=== PATIENT | female | born 1985 | race Caucasian/White ===

== ENCOUNTER 2016-12-18 16:30 | Inpatient (IN) | payer BC, OTHER ==
--- NOTE | 2016-12-18 16:36 | EDM.PDOC ---
[id number]: Genitourinary Problem Stated Complaint: kidnee infection [id number] Time Seen by Provider: 12/18/16 18:45 - Related Data Allergies/ADRs: Allergies Allergy/AdvReac Type Severity Reaction Status Date / Time latex Allergy Rash Verified 12/18/16 16:51 Home Meds: Home Meds Insulin Aspart [NovoLOG] 35 - 45 units IMPLANT ASDIRECTED 10/29/16 [History] Levothyroxine [Synthroid] 1 tab PO DAILY 12/18/16 [History] Course - Vital Signs Last Recorded V/S: Last Vital Signs Temp 36.8 C 12/18/16 21:04 Pulse 98 12/18/16 21:04 Resp 16 12/18/16 21:04 BP 116/67 12/18/16 21:04 Pulse Ox 99 12/18/16 21:04 - Orders/Labs/Meds Orders: Active Orders 24 hr Category Date Time Status CULTURE URINE [RM] Stat Lab 12/18/16 16:48 Received Sodium Chloride 0.9% [Saline Flush] Med 12/18/16 18:34 Active 10 ml FLUSH ASDIRECTED PRN Peripheral IV Insertion Adult [OM.PC] Stat Oth 12/18/16 18:33 Ordered Medication Orders Acetaminophen (Tylenol) 650 mg PO Q4H PRN PRN Reason: Pain (mild 1-3 )/fever Docusate Sodium (Colace) 100 mg PO DAILY PRN PRN Reason: Constipation Last Admin: 12/18/16 22:34 Dose: 100 mg Ceftriaxone Sodium 1 gm/ (Sodium Chloride) 50 mls @ 100 mls/hr IV Q24H [facility] Last Admin: 12/18/16 22:34 Dose: 100 mls/hr Sodium Chloride (Normal Saline) 1,000 mls @ 75 mls/hr IV ASDIRECTED [facility] Last Admin: 12/19/16 04:34 Dose: 75 mls/hr Insulin Aspart (Novolog) 0 unit SUBCUT Q4H SAMINA PRN Reason: Protocol Last Admin: 12/19/16 06:24 Dose: 6 units Admin: 12/19/16 02:28 Dose: 6 units Admin: 12/18/16 22:44 Dose: 12 units Sodium Chloride (Saline Flush) 10 ml FLUSH ASDIRECTED PRN PRN Reason: Keep Vein Open Labs: Laboratory Tests 12/18/16 12/18/16 12/18/16 Range/Units 16:48 16:48 18:50 WBC 11.9 H (5.0-10.0) 10^3/uL RBC 4.18 L (4.2-5.4) 10^6/uL Hgb 13.0 (12.0-16.0) g/dL Hct 37.4 (37.0-47.0) % MCV 89.5 (80-100) fL MCH 31.1 (27.0-34.0) pg MCHC 34.8 (33.0-35.0) g/dL Plt Count 282 (150-450) 10^3/uL Neut % (Auto) 81.2 H (42.2-75.2) % Lymph % (Auto) 9.7 L (20.5-50.1) % Swain % (Auto) 8.8 H (2-8) % Eos % (Auto) 0.1 L (1.0-3.0) % Baso % (Auto) 0.2 (0.0-1.0) % Sodium (135-145) mmol/L Potassium (3.6-5.0) mmol/L Chloride (101-111) mmol/L Carbon Dioxide (21.0-31.0) mmol/L Anion Gap BUN (7-18) mg/dL Creatinine (0.6-1.3) mg/dL Est Cr Clr Drug Dosing mL/min Estimated GFR (MDRD) BUN/Creatinine Ratio Glucose (74-105) mg/dL Calcium (8.4-10.2) mg/dl Total Bilirubin (0.2-1.0) mg/dL AST (10-42) IU/L ALT (10-60) IU/L Alkaline Phosphatase (42-121) IU/L Total Protein (6.7-8.2) g/dl Albumin (3.2-5.5) g/dl Globulin Albumin/Globulin Ratio Amylase (28-100) U/L Lipase (22-51) U/L Urine Color Yellow (YELLOW) Urine Appearance Clear (CLEAR) Urine pH 5.0 (5.0-9.0) Ur Specific [place] 1.025 (1.005-1.030) Urine Protein 100 H (NEGATIVE) Urine Glucose (UA) 500 H (NEGATIVE) Urine Ketones 80 H (NEGATIVE) Urine Occult Blood Large H (NEGATIVE) Urine Nitrite Negative (NEGATIVE) Urine Bilirubin Small H (NEGATIVE) Urine Urobilinogen 0.2 (0.2-1.0) mg/dL Ur Leukocyte Esterase Negative (NEGATIVE) Urine RBC 5-10 H /HPF Urine WBC 75-100 H (0-5/HPF) /HPF Ur Epithelial Cells Few /HPF Urine Bacteria Few (0-FEW/HPF) /HPF Urine HCG, Qual Negative Ketones 12/18/16 Range/Units 18:50 WBC (5.0-10.0) 10^3/uL RBC (4.2-5.4) 10^6/uL Hgb (12.0-16.0) g/dL Hct (37.0-47.0) % MCV (80-100) fL MCH (27.0-34.0) pg MCHC (33.0-35.0) g/dL Plt Count (150-450) 10^3/uL Neut % (Auto) (42.2-75.2) % Lymph % (Auto) (20.5-50.1) % Swain % (Auto) (2-8) % Eos % (Auto) (1.0-3.0) % Baso % (Auto) (0.0-1.0) % Sodium 127 L (135-145) mmol/L Potassium 4.5 (3.6-5.0) mmol/L Chloride 98 L (101-111) mmol/L Carbon Dioxide 10.0 L (21.0-31.0) mmol/L Anion Gap 23.5 BUN 15 (7-18) mg/dL Creatinine 0.8 (0.6-1.3) mg/dL Est Cr Clr Drug Dosing 92.53 mL/min Estimated GFR (MDRD) > 60 BUN/Creatinine Ratio 18.75 Glucose 366 H (74-105) mg/dL Calcium 8.8 (8.4-10.2) mg/dl Total Bilirubin 1.0 (0.2-1.0) mg/dL AST 15 (10-42) IU/L ALT 17 (10-60) IU/L Alkaline Phosphatase 103 (42-121) IU/L Total Protein 8.8 H (6.7-8.2) g/dl Albumin 4.0 (3.2-5.5) g/dl Globulin 4.8 Albumin/Globulin Ratio 0.83 Amylase 16 L (28-100) U/L Lipase 13 L (22-51) U/L Urine Color (YELLOW) Urine Appearance (CLEAR) Urine pH (5.0-9.0) Ur Specific [place] (1.005-1.030) Urine Protein (NEGATIVE) Urine Glucose (UA) (NEGATIVE) Urine Ketones (NEGATIVE) Urine Occult Blood (NEGATIVE) Urine Nitrite (NEGATIVE) Urine Bilirubin (NEGATIVE) Urine Urobilinogen (0.2-1.0) mg/dL Ur Leukocyte Esterase (NEGATIVE) Urine RBC /HPF Urine WBC (0-5/HPF) /HPF Ur Epithelial Cells /HPF Urine Bacteria (0-FEW/HPF) /HPF Urine HCG, Qual Ketones Positive Meds: Medications Generic Name Dose Route Start Last Admin Trade Name Freq PRN Reason Stop Dose Admin Acetaminophen 650 mg 12/18/16 22:11 Tylenol PO Q4H PRN Pain (mild 1-3 )/fever Docusate Sodium 100 mg 12/18/16 22:11 12/18/16 22:34 Colace PO 100 mg DAILY PRN Administration Constipation Ceftriaxone Sodium 1 gm/ 50 mls @ 100 mls/hr 12/18/16 22:30 12/18/16 22:34 Sodium Chloride IV 100 mls/hr Q24H SAMINA Administration Sodium Chloride 1,000 mls @ 75 mls/hr 12/19/16 04:30 12/19/16 04:34 Normal Saline IV 75 mls/hr ASDIRECTED SAMINA Administration Insulin Aspart 0 unit 12/18/16 22:30 12/19/16 06:24 Novolog SUBCUT 6 units Q4H SAMINA Administration Protocol Sodium Chloride 10 ml 12/18/16 18:34 Saline Flush FLUSH ASDIRECTED PRN Keep Vein Open Discontinued Medications Generic Name Dose Route Start Last Admin Trade Name Freq PRN Reason Stop Dose Admin Levofloxacin/Dextrose 500 mg/ 100 mls @ 100 mls/hr 12/18/16 18:35 12/18/16 19 :10 Premix IV 12/18/16 19:34 100 mls/hr ONETIME ONE Administration Sodium Chloride 1,000 mls @ 999 mls/hr 12/18/16 18:35 12/18/16 19:10 Normal Saline IV 12/18/16 19:35 999 mls/hr .BOLUS ONE Administration Ondansetron HCl 4 mg 12/18/16 18:36 12/18/16 19:10 Zofran IV 12/18/16 18:37 4 mg ONETIME ONE Administration Departure - Departure Time of Disposition: 20:29 Disposition: Admitted As Inpatient 67 Condition: fair Clinical Impression: DKA (diabetic ketoacidoses) Qualifiers: Diabetes mellitus type: type 1 Diabetes mellitus complication detail: without coma Qualified Code(s): E10.10 - Type 1 diabetes mellitus with ketoacidosis without coma - My Orders Last 24 Hours: My Active Orders 12/18/16 16:48 CULTURE URINE [RM] Stat 12/18/16 18:33 Peripheral IV Insertion Adult [OM.PC] Stat 12/18/16 18:34 Sodium Chloride 0.9% [Saline Flush] 10 ml FLUSH ASDIRECTED PRN - Assessment/Plan Last 24 Hours: My Active Orders 12/18/16 16:48 CULTURE URINE [RM] Stat 12/18/16 18:33 Peripheral IV Insertion Adult [OM.PC] Stat 12/18/16 18:34 Sodium Chloride 0.9% [Saline Flush] 10 ml FLUSH ASDIRECTED PRN <Brodie Reyes - Last Filed: 12/19/16 07:05> ED HPI RENAL/ - General Source of Information: Reports: Patient, RN, RN notes reviewed History Limitations: Reports: No limitations - History of Present Illness INITIAL COMMENTS - FREE TEXT/NARRATIVE: One week of mild dysuria symptoms that were intermittent. Onset of left flank pain with nausea with fever and chills sensation yesterday. Denies vomiting, abdominal pain or diarrhea. Patient is type 1 diabetic with insulin pump and admits that she has not been checking her sugars for the past several days. 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 History: Reports: None Neurological History: Reports: None Psychiatric History: Reports: None Endocrine/Metabolic History: Reports: Diabetes, type I Hematologic History: Reports: None Immunologic History: Reports: None Oncologic (Cancer) History: Reports: None Dermatologic History: Reports: None - Infectious Disease History Infectious Disease History: Reports: Chicken pox, Other (see below) Other Infectious Disease History: fifth disease Social & Family History - Family History Family Medical History: Noncontributory - Tobacco Use Smoking Status *Q: Never Smoker Second Hand Smoke Exposure: No - Caffeine Use Caffeine Use: Reports: Coffee, Soda - Alcohol Use Days Per Week of Alcohol Use: 0 - Recreational Drug Use Recreational Drug Use: No ED ROS GENERAL - Review of Systems Review Of Systems: ROS reveals no pertinent complaints other than HPI. ED EXAM, RENAL/ - Physical Exam Exam: See Below Exam Limited By: No limitations General Appearance: alert, WD/WN, no apparent distress Eye Exam: bilateral eye: normal inspection Nose: normal inspection, normal mucosa, no blood Throat/Mouth: Normal inspection, Normal oropharynx, Normal voice, No airway compromise, Other (dry oral membranes) Head: atraumatic, normocephalic Neck: normal inspection, supple, non-tender, full range of motion Respiratory/Chest: no respiratory distress, lungs clear, normal breath sounds, no accessory muscle use, chest non-tender Cardiovascular: regular rate, rhythm, no edema, tachycardia GI/Abdominal: normal bowel sounds, soft, no organomegaly, no distention, no abnormal bruit, no mass, tender (mild suprapubic tenderness). No: guarding, rigid, rebound (Female) Exam: Deferred Rectal (Female) Exam: Deferred Back Exam: full range of motion, CVA tenderness (L). No: CVA tenderness (R) Extremities: normal inspection Neurological: alert, oriented, CN II-XII intact, normal cognition, normal gait, no motor/sensory deficits Psychiatric: normal affect Skin Exam: Warm, Dry, Intact, Normal color, No rash Course - Vital Signs Last Recorded V/S: Last Vital Signs Temp 36.8 C 12/18/16 21:04 Pulse 98 12/18/16 21:04 Resp 16 12/18/16 21:04 BP 116/67 12/18/16 21:04 Pulse Ox 99 12/18/16 21:04 - Orders/Labs/Meds Labs: Laboratory Tests 12/18/16 12/18/16 12/18/16 Range/Units 16:48 16:48 18:50 WBC 11.9 H (5.0-10.0) 10^3/uL RBC 4.18 L (4.2-5.4) 10^6/uL Hgb 13.0 (12.0-16.0) g/dL Hct 37.4 (37.0-47.0) % MCV 89.5 (80-100) fL MCH 31.1 (27.0-34.0) pg MCHC 34.8 (33.0-35.0) g/dL Plt Count 282 (150-450) 10^3/uL Neut % (Auto) 81.2 H (42.2-75.2) % Lymph % (Auto) 9.7 L (20.5-50.1) % Swain % (Auto) 8.8 H (2-8) % Eos % (Auto) 0.1 L (1.0-3.0) % Baso % (Auto) 0.2 (0.0-1.0) % Sodium (135-145) mmol/L Potassium (3.6-5.0) mmol/L Chloride (101-111) mmol/L Carbon Dioxide (21.0-31.0) mmol/L Anion Gap BUN (7-18) mg/dL Creatinine (0.6-1.3) mg/dL Est Cr Clr Drug Dosing mL/min Estimated GFR (MDRD) BUN/Creatinine Ratio Glucose (74-105) mg/dL Calcium (8.4-10.2) mg/dl Total Bilirubin (0.2-1.0) mg/dL AST (10-42) IU/L ALT (10-60) IU/L Alkaline Phosphatase (42-121) IU/L Total Protein (6.7-8.2) g/dl Albumin (3.2-5.5) g/dl Globulin Albumin/Globulin Ratio Amylase (28-100) U/L Lipase (22-51) U/L Urine Color Yellow (YELLOW) Urine Appearance Clear (CLEAR) Urine pH 5.0 (5.0-9.0) Ur Specific [place] 1.025 (1.005-1.030) Urine Protein 100 H (NEGATIVE) Urine Glucose (UA) 500 H (NEGATIVE) Urine Ketones 80 H (NEGATIVE) Urine Occult Blood Large H (NEGATIVE) Urine Nitrite Negative (NEGATIVE) Urine Bilirubin Small H (NEGATIVE) Urine Urobilinogen 0.2 (0.2-1.0) mg/dL Ur Leukocyte Esterase Negative (NEGATIVE) Urine RBC 5-10 H /HPF Urine WBC 75-100 H (0-5/HPF) /HPF Ur Epithelial Cells Few /HPF Urine Bacteria Few (0-FEW/HPF) /HPF Urine HCG, Qual Negative Ketones 12/18/16 Range/Units 18:50 WBC (5.0-10.0) 10^3/uL RBC (4.2-5.4) 10^6/uL Hgb (12.0-16.0) g/dL Hct (37.0-47.0) % MCV (80-100) fL MCH (27.0-34.0) pg MCHC (33.0-35.0) g/dL Plt Count (150-450) 10^3/uL Neut % (Auto) (42.2-75.2) % Lymph % (Auto) (20.5-50.1) % Swain % (Auto) (2-8) % Eos % (Auto) (1.0-3.0) % Baso % (Auto) (0.0-1.0) % Sodium 127 L (135-145) mmol/L Potassium 4.5 (3.6-5.0) mmol/L Chloride 98 L (101-111) mmol/L Carbon Dioxide 10.0 L (21.0-31.0) mmol/L Anion Gap 23.5 BUN 15 (7-18) mg/dL Creatinine 0.8 (0.6-1.3) mg/dL Est Cr Clr Drug Dosing 92.53 mL/min Estimated GFR (MDRD) > 60 BUN/Creatinine Ratio 18.75 Glucose 366 H (74-105) mg/dL Calcium 8.8 (8.4-10.2) mg/dl Total Bilirubin 1.0 (0.2-1.0) mg/dL AST 15 (10-42) IU/L ALT 17 (10-60) IU/L Alkaline Phosphatase 103 (42-121) IU/L Total Protein 8.8 H (6.7-8.2) g/dl Albumin 4.0 (3.2-5.5) g/dl Globulin 4.8 Albumin/Globulin Ratio 0.83 Amylase 16 L (28-100) U/L Lipase 13 L (22-51) U/L Urine Color (YELLOW) Urine Appearance (CLEAR) Urine pH (5.0-9.0) Ur Specific [place] (1.005-1.030) Urine Protein (NEGATIVE) Urine Glucose (UA) (NEGATIVE) Urine Ketones (NEGATIVE) Urine Occult Blood (NEGATIVE) Urine Nitrite (NEGATIVE) Urine Bilirubin (NEGATIVE) Urine Urobilinogen (0.2-1.0) mg/dL Ur Leukocyte Esterase (NEGATIVE) Urine RBC /HPF Urine WBC (0-5/HPF) /HPF Ur Epithelial Cells /HPF Urine Bacteria (0-FEW/HPF) /HPF Urine HCG, Qual Ketones Positive Meds: Medications Generic Name Dose Route Start Last Admin Trade Name [place] PRN Reason Stop Dose Admin Acetaminophen 650 mg 12/18/16 22:11 Tylenol PO Q4H PRN Pain (mild 1-3 )/fever Docusate Sodium 100 mg 12/18/16 22:11 12/18/16 22:34 Colace PO 100 mg DAILY PRN Administration Constipation Ceftriaxone Sodium 1 gm/ 50 mls @ 100 mls/hr 12/18/16 22:30 12/18/16 22:34 Sodium Chloride IV 100 mls/hr Q24H SAMINA Administration Sodium Chloride 1,000 mls @ 75 mls/hr 12/19/16 04:30 12/19/16 04:34 Normal Saline IV 75 mls/hr ASDIRECTED SAMINA Administration Insulin Aspart 0 unit 12/18/16 22:30 12/19/16 06:24 Novolog SUBCUT 6 units Q4H SAMINA Administration Protocol Sodium Chloride 10 ml 12/18/16 18:34 Saline Flush FLUSH ASDIRECTED PRN Keep Vein Open Discontinued Medications Generic Name Dose Route Start Last Admin Trade Name [place] PRN Reason Stop Dose Admin Levofloxacin/Dextrose 500 mg/ 100 mls @ 100 mls/hr 12/18/16 18:35 12/18/16 19 :10 Premix IV 12/18/16 19:34 100 mls/hr ONETIME ONE Administration Sodium Chloride 1,000 mls @ 999 mls/hr 12/18/16 18:35 12/18/16 19:10 Normal Saline IV 12/18/16 19:35 999 mls/hr .BOLUS ONE Administration Ondansetron HCl 4 mg 12/18/16 18:36 12/18/16 19:10 Zofran IV 12/18/16 18:37 4 mg ONETIME ONE Administration - Re-Assessments/Exams Free Text/Narrative Re-Assessment/Exam: 12/18/16 18:57 Care of patient transferred to Dr. Kelly at 1900 hours shift change.
[2016-12-18] MEDS ORDERED: Sodium Chloride 0.9% 10 ML Syringe FLUSH PRN (18:34)
[2016-12-18] MEDS ORDERED: Levofloxacin/Dextrose 5%-Water 500 MG in Premix Bag 1 BAG IV ONE (18:35)
[2016-12-18] MEDS ORDERED: Sodium Chloride 0.9% 1,000 ML IV ONE (18:35)
[2016-12-18] MEDS ORDERED: Ondansetron 4 MG/2 ML SDV IV ONE (18:36)
[2016-12-18 19:14] LABS: CHLORIDE,CL 98 mmol/L (101-111); SODIUM,NA 127 mmol/L (135-145)
--- NOTE | 2016-12-18 21:55 | PCM.HP ---
H&P History of Present Illness - General Date of Service: 12/18/16 Admit Problem/Dx: Diabetic Ketoacidosis, with high anion gap, elevated blood sugar Source of Information: Patient, Old records - History of Present Illness Initial Comments - Free Text/Narative: This is a 31 y/O F diagnosed with diabetes at age 18 yrs old and on insulin Pump. [facility] She presented today to ED with One week of mild dysuria symptoms that were intermittent. Onset of left flank pain with nausea with fever and chills sensation yesterday. Denies vomiting, abdominal pain or diarrhea. Patient has th insulin pump and admits that she has not been checking her sugars for the past several day Onset of Symptoms: Reports: gradual Left Middle Abdomen Pain Score (Numeric/FACES): 4 - Related Data Allergies/Adverse Reactions: Allergies Allergy/AdvReac Type Severity Reaction Status Date / Time latex Allergy Rash Verified 12/18/16 16:51 Home Medications: Home Meds Insulin Aspart [NovoLOG] 35 - 45 units IMPLANT ASDIRECTED 10/29/16 [History] Levothyroxine [Synthroid] 1 tab PO DAILY 12/18/16 [History] Past Medical History HEENT History: Reports: None Cardiovascular History: Reports: None Respiratory History: Reports: None Gastrointestinal History: Reports: None Genitourinary History: Reports: None 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 History: Reports: None Neurological History: Reports: None Psychiatric History: Reports: None Endocrine/Metabolic History: Reports: Diabetes, type I Hematologic History: Reports: None Immunologic History: Reports: None Oncologic (Cancer) History: Reports: None Dermatologic History: Reports: None - Infectious Disease History Infectious Disease History: Reports: Chicken pox, Other (see below) Other Infectious Disease History: fifth disease Social & Family History - Family History Family Medical History: Noncontributory - Tobacco Use Smoking Status *Q: Never Smoker Second Hand Smoke Exposure: No - Caffeine Use Caffeine Use: Reports: Coffee, Soda - Alcohol Use Days Per Week of Alcohol Use: 2 Number of Drinks Per Day: 1 Total Drinks Per Week: 2 Date of Last Drink: 12/11/16 Time of Last Drink: 19:30 - Recreational Drug Use Recreational Drug Use: No H&P Review of Systems - Review of Systems: Review Of Systems: See Below General: Denies: fever, chills, weakness, fatigue, decreased appetite HEENT: Denies: contact lenses, headaches, post nasal drip, sinus congestion, sore throat Pulmonary: Denies: Shortness of Breath, Wheezing, Cough, Sputum, Hemoptysis Cardiovascular: Denies: chest pain, palpitations, dyspnea on exertion Gastrointestinal: Reports: Constipation. Denies: Nausea, Vomiting Genitourinary: Denies: dysuria, burning, flank pain (left) Musculoskeletal: Denies: neck pain, leg pain, joint pain, joint swelling Skin: Denies: cyanosis, jaundice, bruising, pruritis, rash Psychiatric: Denies: confusion, anxiety Neurological: Denies: Dizziness, Headache, Weakness Hematologic/Lymphatic: Denies: anemia Immunologic: Denies: environmental allergy Exam - Exam Exam: See Below - Vital Signs Vital Signs: Last Vital Signs Temp 36.8 C 12/18/16 21:04 Pulse 98 12/18/16 21:04 Resp 16 12/18/16 21:04 BP 116/67 12/18/16 21:04 Pulse Ox 99 12/18/16 21:04 Weight: 71.486 kg - Exam Quality Assessment: DVT prophylaxis. No: supplemental oxygen, urinary catheter General: alert, oriented, cooperative HEENT: Conjunctiva clear, Mucosa moist & pink, Pupils equal Neck: supple. No: lymphadenopathy, carotid bruit, JVD, thyromegaly Lungs: Clear to auscultation, Normal respiratory effort. No: Crackles, Rhonchi , Wheezing Cardiovascular: regular rate, regular rhythm Abdomen: normal bowel sounds, soft. No: guarding, rigidity, rebound (Female) Exam: Deferred Rectal (Female) Exam: Deferred Back Exam: normal inspection, full range of motion Extremities: No: calf tenderness, edema Skin: warm, dry, intact Neurological: cranial nerves intact, reflexes equal bilateral Neuro Extensive - Mental Status: alert, oriented x3, normal mood/affect, normal cognition, memory intact Neuro Extensive - Motor, Sensory, Reflexes: CN II-XII intact, normal gait, normal reflexes Psychiatric: alert, normal affect, normal mood - Patient Data Result Diagrams: 12/18/16 18:50 12/18/16 18:50 *Q Meaningful Use (ADM) - VTE *Q VTE Criteria *Q: - Stroke *Q Stroke Criteria *Q: - AMI *Q AMI Criteria *Q: - Problem List (1) Flank pain SNOMED Code(s): 928111761 ICD Code: R10.9 - UNSPECIFIED ABDOMINAL PAIN Status: Acute Current Visit : Yes (2) DKA (diabetic ketoacidoses) SNOMED Code(s): 605487844, 717459782 ICD Code: E13.10 - OTH DIABETES MELLITUS WITH KETOACIDOSIS WITHOUT COMA Status: Acute Current Visit: Yes Qualifiers: Diabetes mellitus type: type 1 Diabetes mellitus complication detail: without coma Qualified Code(s): E10.10 - Type 1 diabetes mellitus with ketoacidosis without coma (3) Nausea & vomiting SNOMED Code(s): 11566741 ICD Code: R11.2 - NAUSEA WITH VOMITING, UNSPECIFIED Status: Acute Current Visit: No Qualifiers: Vomiting type: unspecified Vomiting Intractability: unspecified Qualified Code(s): R11.2 - Nausea with vomiting, unspecified Problem List Initiated/Reviewed/Updated: Yes Orders Last 24hrs: Medication Orders Sodium Chloride (Saline Flush) 10 ml FLUSH ASDIRECTED PRN PRN Reason: Keep Vein Open Assessment/Plan Comment:: his is a 31 y/O F diagnosed with diabetes at age 18 yrs old and on insulin Pump. she follows with Dr. Harris at [facility], [place] . She presented today to ED with One week of mild dysuria symptoms that were intermittent. Onset of left flank pain with nausea with fever and chills sensation yesterday. Denies vomiting, abdominal pain or diarrhea. Patient has th insulin pump and admits that she has not been checking her sugars for the past several days 1. Diabetic Ketoacidosis: This is due to non-complaince of the pt -Her urine posive for Ketone and serum bicaronate was at 10 meq/L and sodium 127 meq/L -Will start her NS at 150 ml/hr -Continue I/O recording -check blood sugar q 4 hrs -Will not need Insulin drip -Will start coverage with regular insulin coverage 2. Nnausea : will start Reglan IV 3. Diabetes I: pt is on insulin pump but not using unow, advise to follow wit Dr. Harris and get back to insulin pump 4. Left flank Pain: She says she always has asymptomatic UTI and will start her on Ceftriaxone 5. DVT prophylaxis: Jacques De La Cruz 6. Code Status: Full Code
[2016-12-18] MEDS ORDERED: Docusate Sodium 100 MG Cap PO PRN (22:11)
[2016-12-18] MEDS ORDERED: Acetaminophen 325 MG Tab PO PRN (22:11)
[2016-12-18] MEDS ORDERED: cefTRIAXone 1 GM in Sodium Chloride 0.9% 50 ML IV SCH (22:30)
[2016-12-18] MEDS: Insulin Aspart 100 Units/ML 3 ML Pen SUBCUT SCH (22:44)
[2016-12-19] MEDS: Insulin Aspart 100 Units/ML 3 ML Pen SUBCUT SCH ×3 (02:28→10:49)
[2016-12-19] MEDS ORDERED: Sodium Chloride 0.9% 1,000 ML IV SCH (04:30)
[2016-12-19 06:48] LABS: CHLORIDE,CL 105 mmol/L (101-111); SODIUM,NA 131 mmol/L (135-145)
--- NOTE | 2016-12-19 10:10 | PCM.DCSUM1 ---
Discharge Summary - Hospital Course Free Text/Narrative:: pt is feeling good and has no more nausea or vomiting, no abdominal pain, tolerating diet well. Denied Dysuria and no more flank Pain HPI Initial Comments: This is a 31 y/O F diagnosed with diabetes at age 18 yrs old and on insulin Pump. [facility] She presented today to ED with One week of mild dysuria symptoms that were intermittent. Onset of left flank pain with nausea with fever and chills sensation on ( 12/17/16). Denies vomiting, abdominal pain or diarrhea. Patient has the insulin pump and admits that she has not been checking her sugars for the past several day - Discharge Data Discharge Date: 12/19/16 Discharge Disposition: Home, Self-Care 01 Condition: Good - Discharge Diagnosis/Problem(s) (1) Flank pain SNOMED Code(s): 589758578 ICD Code: R10.9 - UNSPECIFIED ABDOMINAL PAIN Status: Acute Current Visit : Yes (2) DKA (diabetic ketoacidoses) SNOMED Code(s): 742471038, 069004057 ICD Code: E13.10 - OTH DIABETES MELLITUS WITH KETOACIDOSIS WITHOUT COMA Status: Acute Current Visit: Yes Qualifiers: Diabetes mellitus type: type 1 Diabetes mellitus complication detail: without coma Qualified Code(s): E10.10 - Type 1 diabetes mellitus with ketoacidosis without coma (3) Nausea & vomiting SNOMED Code(s): 30565665 ICD Code: R11.2 - NAUSEA WITH VOMITING, UNSPECIFIED Status: Acute Current Visit: No Qualifiers: Vomiting type: unspecified Vomiting Intractability: unspecified Qualified Code(s): R11.2 - Nausea with vomiting, unspecified - Patient Summary/Data Recommended Follow-up Testing/Procedures: Follow with with PMD and Dr. Maki in a week after the discharge Hospital Course: pt was admitted and started on IVF and covered with sliding scale Insulin. she did very well and was given Ceftriaxone 1 gm IV q24 hrs for flank pain and she will go home on Ciprofloxacin 250 mg BID X 3 more days - Patient Instructions Diet: Diabetic Diet Activity: As Tolerated Driving: May Drive Today Showering/Bathing: May Shower Notify Provider of: Fever, Nausea and/or Vomiting Other/Special Instructions: Pt is advised to Follow with PMD in a week and schedule appointment with Dr. Maki [facility] in [place] as soon as Possible - Discharge Plan Prescriptions/Med Rec: Ciprofloxacin [Ciprofloxacin HCl] 250 mg PO BID #6 tablet Home Medications: Home Meds Insulin Aspart [NovoLOG] 35 - 45 units IMPLANT ASDIRECTED 10/29/16 [History] Levothyroxine [Synthroid] 1 tab PO DAILY 12/18/16 [History] Ciprofloxacin [Ciprofloxacin HCl] 250 mg PO BID #6 tablet 12/19/16 [Rx] Patient Handouts: Influenza, Adult, [id number], Diabetic Ketoacidosis, Flank Pain, [id number] Forms: ED Department Discharge Referrals: PCP,Unobtain [Primary Care Provider] - - Discharge Summary/Plan Comment DC Time >30 min.: Yes - General Info Date of Service: 12/19/16 Admission Dx/Problem (Free Text: Pt was admitted with Diabetic Ketoacidosis, with high anion gap, elevated blood sugar Subjective Update: She is feeling good today, No nausea or vomiting, tolerating diet, no abdominal or flank pain Functional Status: Reports: pain controlled, tolerating diet, ambulating, urinating - Review of Systems General: Reports: Appetite (good). Denies: Fever, Chills HEENT: Denies: dysphasia, ear pain, sinus congestion Pulmonary: Denies: shortness of breath, cough, sputum, wheezing Cardiovascular: Denies: Chest Pain, Lightheadedness Gastrointestinal: Denies: Abdominal pain, Diarrhea, Nausea, Vomiting Genitourinary: Denies: dysuria, frequency, burning, urgency Musculoskeletal: Denies: neck pain, shoulder pain, leg pain, foot pain Skin: Denies: cyanosis, jaundice, diaphoresis, bruising, pruritis, rash Neurological: Denies: Confusion, Numbness, Tremors Psychiatric: Denies: confusion, anxiety - Patient Data Vitals - Most Recent: Last Vital Signs Temp 37.0 C 12/19/16 07:00 Pulse 99 12/19/16 07:00 Resp 16 12/19/16 07:00 BP 120/65 12/19/16 07:00 Pulse Ox 99 12/19/16 07:00 Weight - Most Recent: 71.486 kg I&O - Last 24 hours: Intake & Output 12/18/16 12/19/16 12/19/16 22:59 06:59 14:59 Intake Total 500 1583 Output Total 980 400 Balance 500 603 -400 Lab Results - Last 24 hrs: Laboratory Results - last 24 hr 12/18/16 12/19/16 12/19/16 Range/Units 21:12 02:26 05:40 Sodium 131 L (135-145) mmol/L Potassium 3.7 (3.6-5.0) mmol/L Chloride 105 (101-111) mmol/L Carbon Dioxide 13.0 L (21.0-31.0) mmol/L Anion Gap 16.7 BUN 10 (7-18) mg/dL Creatinine 0.6 (0.6-1.3) mg/dL Est Cr Clr Drug Dosing 123.37 mL/min Estimated GFR (MDRD) > 60 Glucose 217 H (74-105) mg/dL POC Glucose 323 H 224 H (70-105) mg/dl Calcium 8.2 L (8.4-10.2) mg/dl 12/19/16 Range/Units 06:22 Sodium (135-145) mmol/L Potassium (3.6-5.0) mmol/L Chloride (101-111) mmol/L Carbon Dioxide (21.0-31.0) mmol/L Anion Gap BUN (7-18) mg/dL Creatinine (0.6-1.3) mg/dL Est Cr Clr Drug Dosing mL/min Estimated GFR (MDRD) Glucose (74-105) mg/dL POC Glucose 248 H (70-105) mg/dl Calcium (8.4-10.2) mg/dl Med Orders - Current: Current Medications Acetaminophen (Tylenol) 650 mg PO Q4H PRN PRN Reason: Pain (mild 1-3 )/fever Docusate Sodium (Colace) 100 mg PO DAILY PRN PRN Reason: Constipation Last Admin: 12/18/16 22:34 Dose: 100 mg Ceftriaxone Sodium 1 gm/ (Sodium Chloride) 50 mls @ 100 mls/hr IV Q24H [facility] Last Admin: 12/18/16 22:34 Dose: 100 mls/hr Sodium Chloride (Normal Saline) 1,000 mls @ 75 mls/hr IV ASDIRECTED [facility] Last Admin: 12/19/16 04:34 Dose: 75 mls/hr Insulin Aspart (Novolog) 0 unit SUBCUT Q4H [facility] PRN Reason: Protocol Last Admin: 12/19/16 06:24 Dose: 6 units Sodium Chloride (Saline Flush) 10 ml FLUSH ASDIRECTED PRN PRN Reason: Keep Vein Open Discontinued Medications Levofloxacin/Dextrose 500 mg/ (Premix) 100 mls @ 100 mls/hr IV ONETIME ONE Stop: 12/18/16 19:34 Last Admin: 12/18/16 19:10 Dose: 100 mls/hr Sodium Chloride (Normal Saline) 1,000 mls @ 999 mls/hr IV .BOLUS ONE Stop: 12/18/16 19:35 Last Admin: 12/18/16 19:10 Dose: 999 mls/hr Ondansetron HCl (Zofran) 4 mg IV ONETIME ONE Stop: 12/18/16 18:37 Last Admin: 12/18/16 19:10 Dose: 4 mg - Exam Quality Assessment: Denies: supplemental oxygen, urine catheter, DVT prophylaxis General: Reports: alert, oriented, cooperative, no acute distress HEENT: Reports: Pupils equal, Mucous membr. moist/pink Neck: Reports: supple, no JVD. Denies: lymphadenopathy, thyromegaly Lungs: Reports: Clear to auscultation, Normal respiratory effort. Denies: Crackles, Wheezing Cardiovascular: Reports: Regular Rate, Regular Rhythm Abdomen: Reports: bowel sounds present, soft, no tenderness, no distension (Female) Exam: Deferred Rectal (Female) Exam: Deferred Back Exam: Reports: normal inspection, full range of motion Extremities: Reports: no edema, no tenderness/swelling, no calf tenderness Skin: Reports: warm, dry, intact Neurological: Reports: no new focal deficit Psy/Mental Status: Reports: alert, normal affect, normal mood *Q Meaningful Use (DIS) - VTE *Q VTE Criteria *Q: - Stroke *Q Stroke Criteria *Q: - AMI *Q AMI Criteria *Q:
[2016-12-19 10:57] VITALS: BP 124/69
== END 2016-12-19 11:10 | disposition home or self-care (01) | DRG 420 ==
LOC: DL.ED 16:30 → DL.MS 20:51
PROVIDERS: ADMIT Internal Medicine Nephrology; ATTEND Internal Medicine Nephrology
DX: E10.10 Type 1 diabetes mellitus with ketoacidosis without coma (principal); T38.3X6A Underdosing of insulin and oral hypoglycemic [antidiabetic] drugs, initial encounter; Z79.4 Long term (current) use of insulin; Z96.41 Presence of insulin pump (external) (internal)
CPT/HCPCS: 36415; 80048; 80053; 81001; 81025; 82009; 82150; 82962; 83690; 85025; 87086; 96365; 99285; A9270-GY; J0696; J1815-GY; J1956; J2405; J7030; J7050

== ENCOUNTER 2016-12-21 10:27 | Emergency (ER) | payer BC ==
--- NOTE | 2016-12-21 10:28 | EDM.PDOC ---
ED HPI GENERAL MEDICAL PROBLEM - General Chief Complaint: Gastrointestinal Problem Stated Complaint: HEADACHE, NEAUSEAS, SICK Time Seen by Provider: 12/21/16 10:28 Source of Information: Reports: Patient, Family, Old records, RN, RN notes reviewed History Limitations: Reports: No limitations - History of Present Illness INITIAL COMMENTS - FREE TEXT/NARRATIVE: Arrives by POV with c/o continued frontal headache which has waxed and waned for at least one week, but has never gone completely away. Also c/o generalized "sick" feeling with random body aches, poor appetite with early satiety, and unexpected episodes of sudden nausea & vomiting. Pt reports that at times get has a sudden "hot flash" that precedes the N/V. She states that her bowel habits are chronically unpredictable for years, alternating from diarrhea to constipation. She is unsure if she has had a fever or not. Denies abdominal pain , cough, edema, palpitations, blood in emesis or stool, ear pain, sore throat, visual changes, or rash. Pt was seen here by me on December 18 with care transferred to Dr. Kelly at shift change. She was admitted to Dr. Corrigan for DKA, and discharged home the following day on Cipro 500mg BID which she will finish tomorrow. Duration: Week(s): (1+), Constant, Waxing/waning Location: Reports: generalized Severity: moderate Improves with: Reports: None Worsens with: Reports: None Context: Denies: Activity, Exercise, Lifting, Sick contact, Trauma Associated Symptoms: Reports: no other symptoms Treatments RESEARCH PHYSICIST: Reports: Other medication(s) Head Pain Score (Numeric/FACES): 2 - Related Data Allergies Allergy/AdvReac Type Severity Reaction Status Date / Time latex Allergy Rash Verified 12/21/16 10:57 Home Meds: Home Meds Insulin Aspart [NovoLOG] 35 - 45 units IMPLANT ASDIRECTED 10/29/16 [History] Levothyroxine [Synthroid] 1 tab PO DAILY 12/18/16 [History] Ciprofloxacin [Ciprofloxacin HCl] 250 mg PO BID #6 tablet 12/19/16 [Rx] Past Medical History HEENT History: Reports: None Cardiovascular History: Reports: None Respiratory History: Reports: None Gastrointestinal History: Reports: None Genitourinary History: Reports: None 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: Musculoskeletal History: Reports: None Neurological History: Reports: None Psychiatric History: Reports: None Endocrine/Metabolic History: Reports: Diabetes, type I Hematologic History: Reports: None Immunologic History: Reports: None Oncologic (Cancer) History: Reports: None Dermatologic History: Reports: None - Infectious Disease History Infectious Disease History: Reports: Chicken pox, Other (see below) Other Infectious Disease History: fifth disease Social & Family History - Family History Family Medical History: Noncontributory - Tobacco Use Smoking Status *Q: Never Smoker Second Hand Smoke Exposure: No - Caffeine Use Caffeine Use: Reports: Coffee, Soda - Alcohol Use Days Per Week of Alcohol Use: 0 Number of Drinks Per Day: 1 Total Drinks Per Week: 0 - Recreational Drug Use Recreational Drug Use: No - Living Situation & Occupation Living situation: Reports: with family Occupation: employed ED ROS GENERAL - Review of Systems Review Of Systems: ROS reveals no pertinent complaints other than HPI. ED EXAM, GENERAL - Physical Exam Exam: See Below Exam Limited By: No limitations General Appearance: alert, WD/WN, no apparent distress Eye Exam: bilateral eye: normal inspection Ears: normal external exam, normal canal, hearing grossly normal, normal TMs Nose: no blood, other (injection & inflammation of turbinates) Throat/Mouth: Normal inspection, Normal lips, Normal teeth, Normal gums, Normal oropharynx, Normal voice, No airway compromise Head: atraumatic, normocephalic Neck: normal inspection, supple, non-tender, full range of motion, other (no nuchal rigidity). No: lymphadenopathy (L), lymphadenopathy (R) Respiratory/Chest: no respiratory distress, no accessory muscle use, rhonchi ( right base) Cardiovascular: normal peripheral pulses, regular rate, rhythm, no edema, no gallop, no JVD, no murmur, no rub GI/Abdominal: normal bowel sounds, soft, non tender, no organomegaly, no distention, no abnormal bruit, no mass Back Exam: normal inspection, full range of motion. No: CVA tenderness (L), CVA tenderness (R) Extremities: normal inspection, normal range of motion, non-tender, normal capillary refill, no pedal edema Neurological: alert, oriented, CN II-XII intact, normal cognition, normal gait, no motor/sensory deficits Psychiatric: normal affect, normal mood Skin Exam: Warm, Dry, Intact, Normal color, No rash Course - Vital Signs Last Recorded V/S: Last Vital Signs Temp 35.8 C 12/21/16 12:49 Pulse 84 12/21/16 12:49 Resp 16 12/21/16 12:49 BP 117/71 12/21/16 12:49 Pulse Ox 99 12/21/16 12:49 - Orders/Labs/Meds Orders: Active Orders 24 hr Category Date Time Status Peripheral IV Care [RC] . DIRECTED Care 12/21/16 10:33 Active CULTURE BLOOD [] Stat Lab 12/21/16 10:45 Received CULTURE BLOOD [] Stat Lab 12/21/16 10:53 Received CULTURE STREP A CONFIRMATION [] Stat Lab 12/21/16 10:42 Results STREP SCRN A RAPID W CULT CONF [] Stat Lab 12/21/16 10:42 Results Sodium Chloride 0.9% [Saline Flush] Med 12/21/16 10:33 Active 10 ml FLUSH ASDIRECTED PRN Blood Culture x2 Reflex Set [OM.PC] Stat Oth 12/21/16 10:33 Ordered Peripheral IV Insertion Adult [OM.PC] Stat Ot 12/21/16 10:32 Ordered Medication Orders Sodium Chloride (Saline Flush) 10 ml FLUSH ASDIRECTED PRN PRN Reason: Keep Vein Open Last Admin: 12/21/16 10:55 Dose: 10 ml Labs: Laboratory Tests 12/21/16 12/21/16 12/21/16 Range/Units 10:30 10:30 10:45 WBC (5.0-10.0) 10^3/uL RBC (4.2-5.4) 10^6/uL Hgb (12.0-16.0) g/dL Hct (37.0-47.0) % MCV (80-100) fL MCH (27.0-34.0) pg MCHC (33.0-35.0) g/dL Plt Count (150-450) 10^3/uL Neut % (Auto) (42.2-75.2) % Lymph % (Auto) (20.5-50.1) % [place] % (Auto) (2-8) % Eos % (Auto) (1.0-3.0) % Baso % (Auto) (0.0-1.0) % Sodium (135-145) mmol/L Potassium (3.6-5.0) mmol/L Chloride (101-111) mmol/L Carbon Dioxide (21.0-31.0) mmol/L Anion Gap BUN (7-18) mg/dL Creatinine (0.6-1.3) mg/dL Est Cr Clr Drug Dosing mL/min Estimated GFR (MDRD) BUN/Creatinine Ratio Glucose (74-105) mg/dL Lactic Acid 0.9 (0.5-2.2) mmol/L Calcium (8.4-10.2) mg/dl Total Bilirubin (0.2-1.0) mg/dL AST (10-42) IU/L ALT (10-60) IU/L Alkaline Phosphatase (42-121) IU/L Total Protein (6.7-8.2) g/dl Albumin (3.2-5.5) g/dl Globulin Albumin/Globulin Ratio Amylase (28-100) U/L Lipase (22-51) U/L TSH, Ultra Sensitive (0.35-7.0) uIu/mL Urine Color Dark yellow (YELLOW) Urine Appearance Cloudy (CLEAR) Urine pH 6.0 (5.0-9.0) Ur Specific [place] 1.020 (1.005-1.030) Urine Protein 100 H (NEGATIVE) Urine Glucose (UA) 100 H (NEGATIVE) Urine Ketones 80 H (NEGATIVE) Urine Occult Blood Small H (NEGATIVE) Urine Nitrite Negative (NEGATIVE) Urine Bilirubin Moderate H (NEGATIVE) Urine Urobilinogen 2.0 H (0.2-1.0) mg/dL Ur Leukocyte Esterase Trace H (NEGATIVE) Urine RBC 10-20 H /HPF Urine WBC 50-75 H (0-5/HPF) /HPF Ur Epithelial Cells Rare /HPF Urine Bacteria Rare (0-FEW/HPF) /HPF Urine HCG, Qual Negative Ketones 12/21/16 12/21/16 12/21/16 Range/Units 10:53 10:53 10:53 WBC 10.4 H (5.0-10.0) 10^3/uL RBC 3.92 L (4.2-5.4) 10^6/uL Hgb 12.0 (12.0-16.0) g/dL Hct 33.8 L (37.0-47.0) % MCV 86.2 (80-100) fL MCH 30.6 (27.0-34.0) pg MCHC 35.5 H (33.0-35.0) g/dL Plt Count 304 (150-450) 10^3/uL Neut % (Auto) 74.8 (42.2-75.2) % Lymph % (Auto) 13.7 L (20.5-50.1) % [place] % (Auto) 11.0 H (2-8) % Eos % (Auto) 0.4 L (1.0-3.0) % Baso % (Auto) 0.1 (0.0-1.0) % Sodium 134 L (135-145) mmol/L Potassium 2.7 L (3.6-5.0) mmol/L Chloride 101 (101-111) mmol/L Carbon Dioxide 22.0 (21.0-31.0) mmol/L Anion Gap 13.7 BUN 7 (7-18) mg/dL Creatinine 0.5 L (0.6-1.3) mg/dL Est Cr Clr Drug Dosing 147.80 mL/min Estimated GFR (MDRD) > 60 BUN/Creatinine Ratio 14.00 Glucose 159 H (74-105) mg/dL Lactic Acid (0.5-2.2) mmol/L Calcium 8.6 (8.4-10.2) mg/dl Total Bilirubin 0.6 (0.2-1.0) mg/dL AST 14 (10-42) IU/L ALT 13 (10-60) IU/L Alkaline Phosphatase 86 (42-121) IU/L Total Protein 7.5 (6.7-8.2) g/dl Albumin 3.3 (3.2-5.5) g/dl Globulin 4.2 Albumin/Globulin Ratio 0.79 Amylase 15 L (28-100) U/L Lipase 18 L (22-51) U/L TSH, Ultra Sensitive 2.73 (0.35-7.0) uIu/mL Urine Color (YELLOW) Urine Appearance (CLEAR) Urine pH (5.0-9.0) Ur Specific [place] (1.005-1.030) Urine Protein (NEGATIVE) Urine Glucose (UA) (NEGATIVE) Urine Ketones (NEGATIVE) Urine Occult Blood (NEGATIVE) Urine Nitrite (NEGATIVE) Urine Bilirubin (NEGATIVE) Urine Urobilinogen (0.2-1.0) mg/dL Ur Leukocyte Esterase (NEGATIVE) Urine RBC /HPF Urine WBC (0-5/HPF) /HPF Ur Epithelial Cells /HPF Urine Bacteria (0-FEW/HPF) /HPF Urine HCG, Qual Ketones Positive (small) 12/21/16 Range/Units 12:45 WBC (5.0-10.0) 10^3/uL RBC (4.2-5.4) 10^6/uL Hgb (12.0-16.0) g/dL Hct (37.0-47.0) % MCV (80-100) fL MCH (27.0-34.0) pg MCHC (33.0-35.0) g/dL Plt Count (150-450) 10^3/uL Neut % (Auto) (42.2-75.2) % Lymph % (Auto) (20.5-50.1) % [place] % (Auto) (2-8) % Eos % (Auto) (1.0-3.0) % Baso % (Auto) (0.0-1.0) % Sodium 133 L (135-145) mmol/L Potassium 3.0 L (3.6-5.0) mmol/L Chloride 105 (101-111) mmol/L Carbon Dioxide 21.0 (21.0-31.0) mmol/L Anion Gap 10.0 BUN 7 (7-18) mg/dL Creatinine 0.4 L (0.6-1.3) mg/dL Est Cr Clr Drug Dosing 184.75 mL/min Estimated GFR (MDRD) > 60 BUN/Creatinine Ratio Glucose 162 H (74-105) mg/dL Lactic Acid (0.5-2.2) mmol/L Calcium 7.6 L (8.4-10.2) mg/dl Total Bilirubin (0.2-1.0) mg/dL AST (10-42) IU/L ALT (10-60) IU/L Alkaline Phosphatase (42-121) IU/L Total Protein (6.7-8.2) g/dl Albumin (3.2-5.5) g/dl Globulin Albumin/Globulin Ratio Amylase (28-100) U/L Lipase (22-51) U/L TSH, Ultra Sensitive (0.35-7.0) uIu/mL Urine Color (YELLOW) Urine Appearance (CLEAR) Urine pH (5.0-9.0) Ur Specific [place] (1.005-1.030) Urine Protein (NEGATIVE) Urine Glucose (UA) (NEGATIVE) Urine Ketones (NEGATIVE) Urine Occult Blood (NEGATIVE) Urine Nitrite (NEGATIVE) Urine Bilirubin (NEGATIVE) Urine Urobilinogen (0.2-1.0) mg/dL Ur Leukocyte Esterase (NEGATIVE) Urine RBC /HPF Urine WBC (0-5/HPF) /HPF Ur Epithelial Cells /HPF Urine Bacteria (0-FEW/HPF) /HPF Urine HCG, Qual Ketones Meds: Medications Generic Name Dose Route Start Last Admin Trade Name Freq PRN Reason Stop Dose Admin Sodium Chloride 10 ml 12/21/16 10:33 12/21/16 10:55 Saline Flush FLUSH 10 ml ASDIRECTED PRN Administration Keep Vein Open Discontinued Medications Generic Name Dose Route Start Last Admin Trade Name Freq PRN Reason Stop Dose Admin Sodium Chloride 1,000 mls @ 999 mls/hr 12/21/16 10:42 12/21/16 10:55 Normal Saline IV 12/21/16 11:42 999 mls/hr .BOLUS ONE Administration Potassium Chloride 10 meq/ 100 mls @ 100 mls/hr 12/21/16 11:29 12/21/16 11:39 Premix IV 12/21/16 12:28 100 mls/hr ONETIME ONE Administration Sodium Chloride 1,000 mls @ 999 mls/hr 12/21/16 11:59 12/21/16 11:59 Normal Saline IV 12/21/16 12:59 999 mls/hr .BOLUS ONE Administration Ketorolac Tromethamine 30 mg 12/21/16 11:40 12/21/16 11:44 Toradol IVPUSH 12/21/16 11:41 30 mg ONETIME ONE Administration Ondansetron HCl 4 mg 12/21/16 10:42 12/21/16 10:54 Zofran IV 12/21/16 10:43 4 mg ONETIME ONE Administration Potassium Chloride 40 meq 12/21/16 11:29 12/21/16 11:38 Klor-Con 10 PO 12/21/16 11:30 40 meq ONETIME ONE Administration - Radiology Interpretation Free Text/Narrative:: CXR: mild fibrotic appearing Rt cardiac silhouetting of indeterminate significance, see Rad. report. Sinus Xrays: no sinusitis per Rad. report. CT Results Date: 12/21/16 - Re-Assessments/Exams Free Text/Narrative Re-Assessment/Exam: 12/21/16 14:03 I explained the exam findings, results of all diagnostic tests, working diagnosis, and any potential or additionally considered diagnoses, treatment/ disposition plan, self/home care instructions, rational for the diagnosis/ treatment plan/disposition plan, anticipated course of illness, and follow up instructions to the pt and/or pts family or guardian. The pt and/or pts family or guardian acknowledges understanding of the above explanation(s), and of the signs and symptoms which should prompt the return of the pt to the ER should those or any other concerning symptoms develop. Departure - Departure Time of Disposition: 14:03 Disposition: Home, Self-Care 01 Condition: fair Clinical Impression: Hypokalemia, Frontal headache, Hyponatremia Nausea & vomiting Qualifiers: Vomiting type: unspecified Vomiting Intractability: unspecified Qualified Code( s): R11.2 - Nausea with vomiting, unspecified Diabetes mellitus type I Qualifiers: Diabetes mellitus complication status: with other specified complication Qualified Code(s): E10.69 - Type 1 diabetes mellitus with other specified complication Instructions: Hypokalemia, Potassium Content of Foods, Hyponatremia, Gastroparesis Forms: ED Department Discharge Additional Instructions: Rx: Zofran 4mg Rx: Potassium Chloride 20mEq Follow up with your doctor in 3 days for recheck of you potassium and sodium, and to discuss your nausea and vomiting. Return to ER if worse at any time. - My Orders Last 24 Hours: My Active Orders 12/21/16 10:32 Peripheral IV Insertion Adult [OM.PC] Stat 12/21/16 10:33 Peripheral IV Care [RC] . DIRECTED Sodium Chloride 0.9% [Saline Flush] 10 ml FLUSH ASDIRECTED PRN Blood Culture x2 Reflex Set [OM.PC] Stat 12/21/16 10:42 CULTURE STREP A CONFIRMATION [] Stat STREP SCRN A RAPID W CULT CONF [RM] Stat 12/21/16 10:45 CULTURE BLOOD [BC] Stat 12/21/16 10:53 CULTURE BLOOD [BC] Stat - Assessment/Plan Last 24 Hours: My Active Orders 12/21/16 10:32 Peripheral IV Insertion Adult [OM.PC] Stat 12/21/16 10:33 Peripheral IV Care [RC] . DIRECTED Sodium Chloride 0.9% [Saline Flush] 10 ml FLUSH ASDIRECTED PRN Blood Culture x2 Reflex Set [OM.PC] Stat 12/21/16 10:42 CULTURE STREP A CONFIRMATION [RM] Stat STREP SCRN A RAPID W CULT CONF [RM] Stat 12/21/16 10:45 CULTURE BLOOD [BC] Stat 12/21/16 10:53 CULTURE BLOOD [BC] Stat
[2016-12-21] MEDS ORDERED: Sodium Chloride 0.9% 10 ML Syringe FLUSH PRN (10:33)
[2016-12-21] MEDS ORDERED: Sodium Chloride 0.9% 1,000 ML IV ONE ×2 (10:42→11:59)
[2016-12-21] MEDS ORDERED: Ondansetron 4 MG/2 ML SDV IV ONE (10:42)
[2016-12-21 11:21] LABS: CHLORIDE,CL 101 mmol/L (101-111); SODIUM,NA 134 mmol/L (135-145)
--- NOTE | 2016-12-21 11:27 | CR ---
CLINICAL HISTORY: 31-year-old female with "rhonchi" right base who has been sick for a long time. INTERPRETATION: Mild dorsolumbar scoliosis. Partial silhouetting of the right heart border consisten t with atelectasis/fibrosis or even developing infiltrate medial segment right middle lobe. Normal cardiac silhouette without alveolar edema or dependent effusion. No lung mass, hilar lymphadenopathy or other focal lobar consolidation. No pneumothorax.
[2016-12-21] MEDS ORDERED: Potassium Chloride 10 MEQ Tab.ER PO ONE (11:29)
[2016-12-21] MEDS ORDERED: Potassium Chloride 10 MEQ in Premix Bag 1 BAG IV ONE (11:29)
[2016-12-21] MEDS ORDERED: Ketorolac 30 MG/ML SDV IVPUSH ONE (11:40)
--- NOTE | 2016-12-21 12:03 | CR ---
Clinical history: 31-year-old female "sick" for one week (frontal headache). Interpretation: Negative plain film sinus exam (Lea and lateral views). No sign of mucoperiosteal thickening, antral soft tissue mass or pathologic air-fluid levels identif ied within the frontal, ethmoid, maxillary or sphenoid sinuses. Nasal septum is straight midline. Symmetric clear pneumatization of the mastoid sinuses.
[2016-12-21 12:50] VITALS: BP 117/71
[2016-12-21 13:18] LABS: CHLORIDE,CL 105 mmol/L (101-111); SODIUM,NA 133 mmol/L (135-145)
== END 2016-12-21 14:24 | disposition home or self-care (01) ==
LOC: DL.ED 10:27
DX: E87.1 Hypo-osmolality and hyponatremia (principal); E87.6 Hypokalemia; E10.69 Type 1 diabetes mellitus with other specified complication; Z91.040 Latex allergy status; Z79.4 Long term (current) use of insulin
CPT/HCPCS: 36415; 70210; 71020; 80048; 80053; 81001; 81025; 82009; 82150; 83605; 83690; 84443; 85025; 87040; 87081; 87430; 87804; 96361; 96365; 96375; 99284; A9270; J1885; J2405; J3480; J7030; J7050

== ENCOUNTER 2017-03-20 22:42 | Inpatient (IN) | payer BC, OTHER, SELFPAY ==
[2017-03-20] MEDS ORDERED: Sodium Chloride 0.9% 1,000 ML IV ONE (23:41)
[2017-03-20] MEDS ORDERED: Ondansetron 4 MG/2 ML SDV IV ONE (23:42)
[2017-03-20] MEDS ORDERED: Insulin Regular, Human 100 Units/ML 3 ML Vial SUBCUT ONE (23:43)
[2017-03-21] MEDS ORDERED: Metoclopramide 10 MG/2 ML SDV IVPUSH ONE (00:22)
[2017-03-21 00:47] LABS: CHLORIDE,CL 97 mmol/L (101-111); SODIUM,NA 138 mmol/L (135-145)
[2017-03-21] MEDS ORDERED: Insulin Regular, Human 100 Units/ML 3 ML Vial IV ONE (00:55)
[2017-03-21] MEDS ORDERED: Sodium Chloride 0.9% 1,000 ML IV ONE (00:59)
[2017-03-21 01:18] LABS: O2 DELIVERY DEVICE ROOM AIR
[2017-03-21 01:19] LABS: BASE EXCESS ARTERIAL -18 mmol/L ((-2)-(+3)); BICARBONATE,ARTERIAL 8.7 mmol/L (22-26); O2 SATURATION ARTERIAL 97 % (95-100); PCO2 ARTERIAL 24 mmHg (35-45); PO2 ARTERIAL 102 mmHg (70-100)
[2017-03-21 01:23] LABS: O2 FLOW RATE 0
--- NOTE | 2017-03-21 01:49 | EDM.PDOC ---
ED HPI GENERAL MEDICAL PROBLEM - General Chief Complaint: Gastrointestinal Problem Stated Complaint: VOMITING, DIABETIC NO INSULIN FOR A COUPLE DAYS Time Seen by Provider: 03/21/17 00:01 Source of Information: Reports: Patient History Limitations: Reports: No Limitations - History of Present Illness INITIAL COMMENTS - FREE TEXT/NARRATIVE: c/o 24 hours of nausea and vomiting. Diabetic with insulin pump. Ran out of insulin 48 hours prior. Usual basal 1.15 units and 2 units per carb. Duration: Day(s): Severity: Severe Throat Pain Score (Numeric/FACES): 6 - Related Data Allergies Allergy/AdvReac Type Severity Reaction Status Date / Time latex Allergy Rash Verified 03/21/17 04:07 Home Meds: Home Meds Insulin Aspart [NovoLOG] 35 - 45 units IMPLANT ASDIRECTED 10/29/16 [History] Levothyroxine [Synthroid] 1 tab PO DAILY 12/18/16 [History] Levonorgestrel [Lalitha] 1 applic VAG ASDIRECTED 03/21/17 [History] valACYclovir HCl [Valtrex] 500 mg PO BID PRN 03/21/17 [History] Past Medical History HEENT History: Reports: None Cardiovascular History: Reports: None Respiratory History: Reports: None Gastrointestinal History: Reports: None Genitourinary History: Reports: None [employer] History: Reports: Musculoskeletal History: Reports: None Neurological History: Reports: None Psychiatric History: Reports: None Endocrine/Metabolic History: Reports: Diabetes, Type I Hematologic History: Reports: None Immunologic History: Reports: None Oncologic (Cancer) History: Reports: None Dermatologic History: Reports: None - Infectious Disease History Infectious Disease History: Reports: Chicken Pox, Other (See Below) Other Infectious Disease History: fifth disease Social & Family History - Family History Family Medical History: Noncontributory - Tobacco Use Smoking Status *Q: Unknown Ever Smoked Second Hand Smoke Exposure: No - Caffeine Use Caffeine Use: Reports: Coffee, Soda - Alcohol Use Days Per Week of Alcohol Use: 0 Number of Drinks Per Day: 1 Total Drinks Per Week: 0 - Recreational Drug Use Recreational Drug Use: No - Living Situation & Occupation Living situation: Reports: with Family Occupation: Employed ED ROS GENERAL - Review of Systems Review Of Systems: See Below Constitutional: Reports: Decreased Appetite HEENT: Reports: No Symptoms Respiratory: Reports: No Symptoms Cardiovascular: Reports: No Symptoms Endocrine: Reports: High Glucose GI/Abdominal: Reports: Decreased Appetite, Nausea, Vomiting : Reports: No Symptoms Musculoskeletal: Reports: No Symptoms Skin: Reports: No Symptoms Neurological: Reports: No Symptoms Psychiatric: Reports: No Symptoms ED EXAM, GI/ABD - Physical Exam Exam: See Below Exam Limited By: No Limitations General Appearance: Alert, Severe Distress Eyes: Bilateral: Normal Appearance Ears: Normal External Exam Nose: Normal Inspection Throat/Mouth: Other (mucus membranes dry) Neck: Normal Inspection, Full Range of Motion Respiratory/Chest: No Respiratory Distress, Lungs Clear, Normal Breath Sounds Cardiovascular: Regular Rate, Rhythm, Tachycardia GI/Abdominal: Normal Bowel Sounds, Soft, Hypoactive Bowel Sounds Back Exam: Full Range of Motion Extremities: Normal Inspection Neurological: Alert, Oriented, Normal Cognition Psychiatric: Normal Affect Skin Exam: Warm, Dry, Intact, Pallor, Other (face flushed) Course - Vital Signs Last Recorded V/S: Last Vital Signs Temp 98.7 F 03/22/17 19:05 Pulse 76 03/22/17 19:05 Resp 20 03/22/17 19:05 BP 131/78 03/22/17 19:05 Pulse Ox 100 03/22/17 19:05 - Orders/Labs/Meds Orders: Medication Orders Acetaminophen (Tylenol) 650 mg PO Q4H PRN PRN Reason: Pain (Mild 1-3)/fever Last Admin: 03/22/17 16:00 Dose: 650 mg Admin: 03/22/17 08:48 Dose: 650 mg Admin: 03/21/17 15:44 Dose: 650 mg Al Hydroxide/Mg Hydroxide (Mag-Al Plus) 30 ml PO Q8H PRN PRN Reason: Heartburn Last Admin: 03/22/17 18:39 Dose: 30 ml Benzocaine/Menthol (Cepacol Sore Throat) 1 lozenge MUCMEM 5XDAY PRN PRN Reason: Sore Throat Last Admin: 03/22/17 08:46 Dose: 1 lozenge Admin: 03/21/17 15:44 Dose: 1 lozenge Admin: 03/21/17 11:26 Dose: 1 lozenge Enoxaparin Sodium (Lovenox) 40 mg SUBCUT DAILY SAMINA Last Admin: 03/22/17 08:34 Dose: 40 mg Admin: 03/21/17 08:28 Dose: 40 mg Insulin Human Regular 100 unit (/ Sodium Chloride) 100 mls @ 0.5 mls/hr IV TITRATE SAMINA; 0.5 UNITS/HR PRN Reason: Protocol Last Titration: 03/22/17 12:34 Dose: 1 units/hr, 1 mls/hr Titration: 03/22/17 11:29 Dose: 2 units/hr, 2 mls/hr Titration: 03/22/17 10:35 Dose: 2.5 units/hr, 2.5 mls/hr Titration: 03/22/17 09:54 Dose: 2.5 units/hr, 2.5 mls/hr Titration: 03/22/17 09:35 Dose: 2.5 units/hr, 2.5 mls/hr Titration: 03/22/17 08:33 Dose: 2 units/hr, 2 mls/hr Titration: 03/22/17 07:25 Dose: 2 units/hr, 2 mls/hr Titration: 03/22/17 06:36 Dose: 2 units/hr, 2 mls/hr Titration: 03/22/17 05:32 Dose: 2.5 units/hr, 2.5 mls/hr Titration: 03/22/17 04:29 Dose: 2.5 units/hr, 2.5 mls/hr Titration: 03/22/17 03:31 Dose: 2 units/hr, 2 mls/hr Titration: 03/22/17 02:36 Dose: 2 units/hr, 2 mls/hr Titration: 03/22/17 01:30 Dose: 2 units/hr, 2 mls/hr Titration: 03/22/17 00:30 Dose: 2 units/hr, 2 mls/hr Titration: 03/21/17 23:32 Dose: 2 units/hr, 2 mls/hr Titration: 03/21/17 22:23 Dose: 2 units/hr, 2 mls/hr Titration: 03/21/17 21:37 Dose: 2.5 units/hr, 2.5 mls/hr Admin: 03/21/17 20:33 Dose: 2.5 units/hr, 2.5 mls/hr Titration: 03/21/17 20:33 Dose: 2.5 units/hr, 2.5 mls/hr Titration: 03/21/17 20:30 Dose: 2.5 units/hr, 2.5 mls/hr Titration: 03/21/17 19:39 Dose: 2 units/hr, 2 mls/hr Titration: 03/21/17 18:19 Dose: 2.5 units/hr, 2.5 mls/hr Titration: 03/21/17 17:06 Dose: 2 units/hr, 2 mls/hr Titration: 03/21/17 16:13 Dose: 1.5 units/hr, 1.5 mls/hr Titration: 03/21/17 15:30 Dose: 1.5 units/hr, 1.5 mls/hr Titration: 03/21/17 14:21 Dose: 2 units/hr, 2 mls/hr Titration: 03/21/17 13:16 Dose: 2 units/hr, 2 mls/hr Titration: 03/21/17 12:33 Dose: 2.5 units/hr, 2.5 mls/hr Titration: 03/21/17 11:21 Dose: 2 units/hr, 2 mls/hr Titration: 03/21/17 10:21 Dose: 2.5 units/hr, 2.5 mls/hr Titration: 03/21/17 09:36 Dose: 2 units/hr, 2 mls/hr Titration: 03/21/17 08:30 Dose: 2 units/hr, 2 mls/hr Titration: 03/21/17 07:38 Dose: 2.5 units/hr, 2.5 mls/hr Titration: 03/21/17 06:28 Dose: 2 units/hr, 2 mls/hr Titration: 03/21/17 05:29 Dose: 2.5 units/hr, 2.5 mls/hr Titration: 03/21/17 04:24 Dose: 2.5 units/hr, 2.5 mls/hr Titration: 03/21/17 03:10 Dose: 3 units/hr, 3 mls/hr Admin: 03/21/17 02:05 Dose: 3 units/hr, 3 mls/hr Potassium Chloride/Sodium Chloride (1/2 Ns With 20 Meq Kcl) 1,000 mls @ 75 mls/ hr IV ASDIRECTED SAMINA Last Admin: 03/22/17 13:31 Dose: 75 mls/hr ###Insulin Pump-Pt's (Own Med###) 0 each SUBCUT QID [facility] Last Admin: 03/22/17 21:59 Dose: Not Given Admin: 03/22/17 17:06 Dose: 2.7 each Ondansetron HCl (Zofran) 4 mg IVPUSH Q6H PRN PRN Reason: Nausea/Vomiting Oxycodone/Acetaminophen (Percocet 325-5 Mg) 1 tab PO Q4H PRN PRN Reason: Pain (moderate 4-6) Pantoprazole Sodium (Protonix Iv) 40 mg IVPUSH Q12HR [facility] Last Admin: 03/22/17 21:44 Dose: 40 mg Admin: 03/22/17 08:36 Dose: 40 mg Admin: 03/21/17 21:30 Dose: 40 mg Admin: 03/21/17 08:28 Dose: 40 mg Potassium Chloride (Klor-Con 10) 20 meq PO BIDMEALS [facility] Last Admin: 03/22/17 18:43 Dose: 20 meq Sodium Chloride (Saline Flush) 10 ml FLUSH ASDIRECTED PRN PRN Reason: Keep Vein Open Labs: Laboratory Tests 03/20/17 03/20/17 03/20/17 Range/Units 23:31 23:58 23:58 WBC 19.9 H (5.0-10.0) 10^3/uL RBC 5.17 (4.2-5.4) 10^6/uL Hgb 15.7 (12.0-16.0) g/dL Hct 46.0 (37.0-47.0) % MCV 89.0 (80-100) fL MCH 30.4 (27.0-34.0) pg MCHC 34.1 (33.0-35.0) g/dL Plt Count 252 (150-450) 10^3/uL Neut % (Auto) 85.5 H (42.2-75.2) % Lymph % (Auto) 7.0 L (20.5-50.1) % [place] % (Auto) 7.4 (2-8) % Eos % (Auto) 0.0 L (1.0-3.0) % Baso % (Auto) 0.1 (0.0-1.0) % ABG pH (7.35-7.45) ABG pCO2 (35-45) mmHg ABG pO2 (70-100) mmHg ABG HCO3 (22-26) mmol/L ABG O2 Saturation (95-100) % ABG Base Excess ((-2)-(+3)) mmol/L Roel Test O2 Delivery Device Oxygen Flow Rate Sodium 138 (135-145) mmol/L Potassium 4.8 (3.6-5.0) mmol/L Chloride 97 L (101-111) mmol/L Carbon Dioxide 13.0 L (21.0-31.0) mmol/L Anion Gap 32.8 BUN 23 H (7-18) mg/dL Creatinine 1.0 (0.6-1.3) mg/dL Est Cr Clr Drug Dosing 71.03 mL/min Estimated GFR (MDRD) > 60 BUN/Creatinine Ratio 23.00 Glucose 480 H* (74-105) mg/dL POC Glucose 394 H (70-105) mg/dl Lactic Acid (0.5-2.2) mmol/L Calcium 9.9 (8.4-10.2) mg/dl Total Bilirubin 1.9 H (0.2-1.0) mg/dL AST 32 (10-42) IU/L ALT 34 (10-60) IU/L Alkaline Phosphatase 90 (42-121) IU/L Total Protein 8.7 H (6.7-8.2) g/dl Albumin 5.0 (3.2-5.5) g/dl Globulin 3.7 Albumin/Globulin Ratio 1.35 Amylase 54 (28-100) U/L Lipase 11 L (22-51) U/L Ketones Positive (small) 03/20/17 03/21/17 03/21/17 Range/Units 23:58 00:54 01:14 WBC (5.0-10.0) 10^3/uL RBC (4.2-5.4) 10^6/uL Hgb (12.0-16.0) g/dL Hct (37.0-47.0) % MCV (80-100) fL MCH (27.0-34.0) pg MCHC (33.0-35.0) g/dL Plt Count (150-450) 10^3/uL Neut % (Auto) (42.2-75.2) % Lymph % (Auto) (20.5-50.1) % [place] % (Auto) (2-8) % Eos % (Auto) (1.0-3.0) % Baso % (Auto) (0.0-1.0) % ABG pH 7.18 L* (7.35-7.45) ABG pCO2 24 L (35-45) mmHg ABG pO2 102 H (70-100) mmHg ABG HCO3 8.7 L (22-26) mmol/L ABG O2 Saturation 97 (95-100) % ABG Base Excess -18 L ((-2)-(+3)) mmol/L Roel Test na O2 Delivery Device Room air Oxygen Flow Rate 0 Sodium (135-145) mmol/L Potassium (3.6-5.0) mmol/L Chloride (101-111) mmol/L Carbon Dioxide (21.0-31.0) mmol/L Anion Gap BUN (7-18) mg/dL Creatinine (0.6-1.3) mg/dL Est Cr Clr Drug Dosing mL/min Estimated GFR (MDRD) BUN/Creatinine Ratio Glucose (74-105) mg/dL POC Glucose 398 H (70-105) mg/dl Lactic Acid 3.2 H (0.5-2.2) mmol/L Calcium (8.4-10.2) mg/dl Total Bilirubin (0.2-1.0) mg/dL AST (10-42) IU/L ALT (10-60) IU/L Alkaline Phosphatase (42-121) IU/L Total Protein (6.7-8.2) g/dl Albumin (3.2-5.5) g/dl Globulin Albumin/Globulin Ratio Amylase (28-100) U/L Lipase (22-51) U/L Ketones 03/21/17 Range/Units 02:05 WBC (5.0-10.0) 10^3/uL RBC (4.2-5.4) 10^6/uL Hgb (12.0-16.0) g/dL Hct (37.0-47.0) % MCV (80-100) fL MCH (27.0-34.0) pg MCHC (33.0-35.0) g/dL Plt Count (150-450) 10^3/uL Neut % (Auto) (42.2-75.2) % Lymph % (Auto) (20.5-50.1) % [place] % (Auto) (2-8) % Eos % (Auto) (1.0-3.0) % Baso % (Auto) (0.0-1.0) % ABG pH (7.35-7.45) ABG pCO2 (35-45) mmHg ABG pO2 (70-100) mmHg ABG HCO3 (22-26) mmol/L ABG O2 Saturation (95-100) % ABG Base Excess ((-2)-(+3)) mmol/L Roel Test O2 Delivery Device Oxygen Flow Rate Sodium (135-145) mmol/L Potassium (3.6-5.0) mmol/L Chloride (101-111) mmol/L Carbon Dioxide (21.0-31.0) mmol/L Anion Gap BUN (7-18) mg/dL Creatinine (0.6-1.3) mg/dL Est Cr Clr Drug Dosing mL/min Estimated GFR (MDRD) BUN/Creatinine Ratio Glucose (74-105) mg/dL POC Glucose 274 H (70-105) mg/dl Lactic Acid (0.5-2.2) mmol/L Calcium (8.4-10.2) mg/dl Total Bilirubin (0.2-1.0) mg/dL AST (10-42) IU/L ALT (10-60) IU/L Alkaline Phosphatase (42-121) IU/L Total Protein (6.7-8.2) g/dl Albumin (3.2-5.5) g/dl Globulin Albumin/Globulin Ratio Amylase (28-100) U/L Lipase (22-51) U/L Ketones Meds: Medications Generic Name Dose Route Start Last Admin Trade Name Freq PRN Reason Stop Dose Admin Acetaminophen 650 mg 03/21/17 02:48 03/22/17 16:00 Tylenol PO 650 mg Q4H PRN Administration Pain (Mild 1-3)/fever Al Hydroxide/Mg Hydroxide 30 ml 03/22/17 17:58 03/22/17 18:39 Mag-Al Plus PO 30 ml Q8H PRN Administration Heartburn Benzocaine/Menthol 1 lozenge 03/21/17 11:12 03/22/17 08:46 Cepacol Sore Throat MUCMEM 1 lozenge 5XDAY PRN Administration Sore Throat Enoxaparin Sodium 40 mg 03/21/17 09:00 03/22/17 08:34 Lovenox SUBCUT 40 mg DAILY SAMINA Administration Insulin Human Regular 100 unit 100 mls @ 0.5 mls/hr 03/21/17 02:00 03/22/17 12:34 / Sodium Chloride IV 1 units/hr TITRATE SAMINA 1 mls/hr Protocol Titration 0.5 UNITS/HR Potassium Chloride/Sodium Chloride 1,000 mls @ 75 mls/hr 03/22/17 12:30 03/22 13:31 1/2 Ns With 20 Meq Kcl IV 75 mls/hr ASDIRECTED SAMINA Administration ###Insulin Pump-Pt's 0 each 03/22/17 17:00 03/22/17 21:59 Own Med### SUBCUT Not Given QID SAMINA Ondansetron HCl 4 mg 03/21/17 02:48 Zofran IVPUSH Q6H PRN Nausea/Vomiting Oxycodone/Acetaminophen 1 tab 03/21/17 02:48 Percocet 325-5 Mg PO Q4H PRN Pain (moderate 4-6) Pantoprazole Sodium 40 mg 03/21/17 09:00 03/22/17 21:44 Protonix Iv IVPUSH 40 mg Q12HR SAMINA Administration Potassium Chloride 20 meq 03/22/17 18:30 03/22/17 18:43 Klor-Con 10 PO 20 meq BIDMEALS SAMINA Administration Sodium Chloride 10 ml 03/21/17 04:43 Saline Flush FLUSH ASDIRECTED PRN Keep Vein Open Discontinued Medications Generic Name Dose Route Start Last Admin Trade Name Freq PRN Reason Stop Dose Admin Sodium Chloride 1,000 mls @ 999 mls/hr 03/20/17 23:41 03/20/17 23:51 Normal Saline IV 03/21/17 00:41 999 mls/hr .BOLUS ONE Administration Sodium Chloride 1,000 mls @ 999 mls/hr 03/21/17 00:59 03/21/17 01:07 Normal Saline IV 03/21/17 01:59 999 mls/hr .BOLUS ONE Administration Sodium Chloride 1,000 mls @ 999 mls/hr 03/21/17 03:00 03/21/17 04:21 Normal Saline IV 03/22/17 04:01 999 mls/hr ASDIRECTED SAMINA Administration Sodium Chloride 1,000 mls @ 250 mls/hr 03/21/17 05:00 03/21/17 12:25 Normal Saline IV Infused ASDIRECTED SAMINA Infusion Potassium Chloride/Dextrose/Sod Cl 1,000 mls @ 150 mls/hr 03/21/17 03:15 07/29 13:30 D5 1/2 Ns W/ 10 Meq/L Kcl IV Infused ASDIRECTED SAMINA Infusion Potassium Chloride/Sodium Chloride 1,000 mls @ 200 mls/hr 03/21/17 11:15 06/28 12:30 1/2 Ns With 20 Meq Kcl IV 200 mls/hr ASDIRECTED SAMINA Administration Insulin Human Regular 10 unit 03/20/17 23:43 03/20/17 23:53 Humulin R SUBCUT 03/20/17 23:44 10 units ONETIME ONE Administration Protocol Insulin Human Regular 5 unit 03/21/17 00:55 03/21/17 01:08 Humulin R IV 03/21/17 00:56 5 units ONETIME ONE Administration Protocol Metoclopramide HCl 10 mg 03/21/17 00:22 03/21/17 00:44 Reglan IVPUSH 03/21/17 00:23 10 mg ONETIME ONE Administration ###Insulin Pump-Pt's 0 each 03/22/17 17:00 Own Med### SUBCUT QID SAMINA ###Insulin Pump-Pt's 0 each 03/22/17 17:00 Own Med### SUBCUT ASDIRECTED SAMINA Ondansetron HCl 4 mg 03/20/17 23:42 03/20/17 23:51 Zofran IV 03/20/17 23:43 4 mg ONETIME ONE Administration Potassium Chloride 20 meq 03/22/17 18:15 Potassium Chloride Solution PO BIDMEALS [facility] - Re-Assessments/Exams Free Text/Narrative Re-Assessment/Exam: 03/21/17 01:50 minimal relief of nausea with zofran. Vomiting resolved aith minimal nausea following Reglan. Resting. TC consult Dr. Bowman, accepting to admit patient medical floor for further eval and management DKA. Departure - Departure Time of Disposition: 01:53 Disposition: Admitted As Inpatient 67 Condition: Undetermined Clinical Impression: DKA (diabetic ketoacidoses) Qualifiers: Diabetes mellitus type: type 1 Diabetes mellitus complication detail: without coma Qualified Code(s): E10.10 - Type 1 diabetes mellitus with ketoacidosis without coma Nausea & vomiting Qualifiers: Vomiting type: unspecified Vomiting Intractability: unspecified Qualified Code( s): R11.2 - Nausea with vomiting, unspecified Diabetes mellitus type I Qualifiers: Diabetes mellitus complication status: with other specified complication Qualified Code(s): E10.69 - Type 1 diabetes mellitus with other specified complication - Discharge Information
[2017-03-21] MEDS ORDERED: Acetaminophen/oxyCODONE 325-5 MG Tab PO PRN (02:48)
[2017-03-21] MEDS ORDERED: Ondansetron 4 MG/2 ML SDV IVPUSH PRN (02:48)
[2017-03-21] MEDS: Sodium Chloride 0.9% 1,000 ML IV SCH ×4 (03:21→09:33)
--- NOTE | 2017-03-21 03:42 | HP ---
CHIEF COMPLAINT: Nausea, vomiting, weakness. HISTORY OF PRESENTING ILLNESS: Ms. Antonio Payne is a 31-year-old female with medical history significant for type 1 diabetes mellitus, first diagnosed when she was 17 years old, has been on insulin pump since 2004 on and off, recently went to [place] for her vacation and forgot her insulin cartridge at the vacation spot. The insulin cartridges were supposed to be mailed to her overnight, but she did not get her insulin yet. She went without insulin for the last 2 days and since this morning, the patient had intense nausea, vomiting, and so brought to the emergency room when she was noted to be in severe diabetic ketoacidosis, needing admission to the hospital. At this time, the patient complains of increasing weakness and tiredness. She also complains of having nausea, vomiting, more than 10 times in the last 24 hours, bilious stain and sometimes red stain. No blood seen in the vomitus. Also associated with abdominal pain, which is mild in nature, aggravated on nausea and vomiting, relieved with rest, nonradiating in nature, not associated with any diarrhea. She denied any fevers, but complains of having chills. She denies any headache. No changes in the vision. The patient denied any history of chest pains on exertion. No history of dyspnea on exertion. No history of orthopnea or paroxysmal nocturnal dyspnea. The patient denied any history of hematemesis, hematochezia, or melanotic stools. Normal bowel and bladder habits, otherwise. REVIEW OF SYSTEMS: A complete review of system including skin, ear, nose, and throat, cardiovascular system, respiratory system, gastrointestinal system, genitourinary system, hematology, oncology, neurology, allergy, immunology, constitutional were all evaluated and were negative except for the above-said notes. PAST MEDICAL HISTORY: Significant for: 1. Type 1 diabetes mellitus. 2. Guille's thyroiditis. 3. Hammertoe. PAST SURGICAL HISTORY: Significant for in the past. FAMILY HISTORY: Significant for type 2 diabetes mellitus in the family, but no history of type 1 diabetes. SOCIAL HISTORY: The patient denied any history of smoking tobacco. No history of alcohol intake. ALLERGIES: The patient has allergies to latex which causes itching. PHYSICAL EXAMINATION: Vital Signs: Temperature of 98.1, pulse of 120, blood pressure 126/58, respiratory rate of 20, saturating at 100% on room air. General Appearance: The patient is well oriented to time, place, and person. Follows commands spontaneously. Cardiovascular System: S1, S2 heard with normal intensity. No gallops. Respiratory System: Clear to auscultation bilaterally. No wheeze. No crepitations. Abdomen: Soft. Bowel sounds positive. Nontender. No rigidity. Extremities: No edema in bilateral lower extremities. Neurology: No gross focal neurological deficits. HOME MEDICATIONS: 1. Valacyclovir as needed, 500 mg tablets. 2. NovoLog insulin pump, she usually takes 1.15 basal rate and around 2 units per carb with eating, on the insulin pump. LABORATORY DATA: WBC 19.9, hemoglobin 15.7, hematocrit 46, platelet count 252. ABG shows pH of 7.18, pCO2 of 24, PO2 of 102, bicarb of 8.7. Sodium 138, potassium 4.8, chloride 97, bicarb 13, BUN 23, creatinine 1. Glucose 480. Lactic acid 3.2. Lipase 11. Ketones in the urine positive. ASSESSMENT: 1. Diabetic ketoacidosis. 2. Leukocytosis. PLAN: 1. Severe diabetic ketoacidosis. The patient is noted to be in severe diabetic ketoacidosis with a pH of 7.18 and bicarb of 8.7 on the arterial blood gas analysis. The patient will be admitted to the hospital and we will start her on IV insulin drip. We will hydrate her with IV fluids and check basic metabolic panel every 8 hourly. Continue insulin drip till we have the anion gap closed. The patient has an anion gap of 32.8 at this time. We will closely follow the patient. 2. Severe dehydration. This is mainly from nausea, vomiting. She is noted to be tachycardic. We will continue the IV normal saline. 3. DVT prophylaxis. We will have her on Lovenox for DVT prophylaxis. 4. Code status. The patient wants to be full code. 5. Discussed with Tiffanie from ER regarding the plan of care. Discussed with the patient at bedside regarding the plan of care. Reviewed the labs and medications. Reviewed the old charts. [facility] /[id number]
[2017-03-21] MEDS ORDERED: Sodium Chloride 0.9% 10 ML Syringe FLUSH PRN (04:43)
[2017-03-21] MEDS: Pantoprazole 40 MG Vial IVPUSH SCH ×2 (08:28→21:30)
[2017-03-21] MEDS: Enoxaparin 40 MG/0.4 ML Syringe SUBCUT SCH (08:28)
[2017-03-21 10:00] LABS: CHLORIDE,CL 112 mmol/L (101-111); SODIUM,NA 141 mmol/L (135-145)
[2017-03-21] MEDS ORDERED: Sodium Chloride 0.45% with KCl 1,000 ML IV SCH (11:15)
[2017-03-21] MEDS: Benzocaine/Cetylpyridinium/Menthol Lozenge MUCMEM PRN ×2 (11:26→15:44)
[2017-03-21] MEDS: D5 1/2 NS w/ 10 mEq/L KCl 1,000 ML IV SCH ×3 (11:29→22:17)
[2017-03-21] MEDS: Acetaminophen 325 MG Tab PO PRN (15:44)
[2017-03-21 16:33] LABS: CHLORIDE,CL 110 mmol/L (101-111); SODIUM,NA 139 mmol/L (135-145)
[2017-03-22] MEDS: D5 1/2 NS w/ 10 mEq/L KCl 1,000 ML IV SCH (04:48)
[2017-03-22] MEDS: Enoxaparin 40 MG/0.4 ML Syringe SUBCUT SCH (08:34)
[2017-03-22] MEDS: Pantoprazole 40 MG Vial IVPUSH SCH ×2 (08:36→21:44)
[2017-03-22] MEDS: Benzocaine/Cetylpyridinium/Menthol Lozenge MUCMEM PRN (08:46)
[2017-03-22] MEDS: Acetaminophen 325 MG Tab PO PRN ×2 (08:48→16:00)
[2017-03-22 11:08] LABS: CHLORIDE,CL 108 mmol/L (101-111); SODIUM,NA 139 mmol/L (135-145)
--- NOTE | 2017-03-22 12:43 | PN ---
DATE: 03/22/2017 SUBJECTIVE: Ms. Antonio Payne is a 31-year-old female with a medical history significant for type 1 diabetes mellitus admitted with severe diabetic ketoacidosis. For the last 24 hours, the patient continues to be on insulin drip. Continues to be on D5 half-normal saline. Her anion gap seems to be trending down. She continues to have some pain in the throat mainly from nausea and vomiting. Possible gastroesophageal reflux disease exacerbation. She denies any chest pain. No shortness of breath. No abdominal pain. No nausea. No vomiting. No diarrhea. REVIEW OF SYSTEMS: Cardiovascular, respiratory, gastrointestinal, neurology, and constitutional were all evaluated. PHYSICAL EXAMINATION: Vital Signs: Temperature of 98.9, pulse of 75, respiratory rate of 20, blood pressure 115/70, saturating at 98% on room air. General Appearance: The patient is well oriented to time, place, and person. Follows commands spontaneously Cardiovascular System: S1, S2 heard with normal intensity. No gallops. Respiratory: Clear to auscultation bilaterally. No wheeze. No crepitations. Abdomen: Soft. Bowel sounds positive. Nontender. No rigidity. Extremities: No edema in bilateral lower extremities. Neurology: No gross focal neurological deficits. MEDICATIONS: 1. Tylenol 650 every 4 hours as needed for pain. 2. Lovenox 40 mg subcutaneous daily. 3. IV insulin drip. 4. Percocet 5/325 mg every 4 hours as needed for pain. LABORATORY DATA: Ordered for basic metabolic panel this a.m. ASSESSMENT: 1. Severe diabetic ketoacidosis. 2. Type 1 diabetes mellitus, uncontrolled. 3. Guille's thyroiditis. PLAN: 1. Severe diabetic ketoacidosis. The patient was admitted with severe diabetic ketoacidosis. Her pH was noted to be at around 7.18 and her bicarb was down to 8.7. We did check the labs yesterday evening, which shows some improvement in her bicarb, but continues to have slightly elevated anion gap. We will recheck basic metabolic panel today. If the anion gap is closed, then one might consider switching her fluids to half- normal saline and then slowly titrating down the IV insulin. The patient has a subcutaneous insulin pump, so we will initiate her insulin pump and closely follow the blood sugars and recheck a basic metabolic panel in a.m. If her anion gap remains closed and her bicarb improves, then one might consider discharging her in a.m. 2. DVT prophylaxis. Continue with Lovenox for DVT prophylaxis. [facility] /[id number]
[2017-03-22] MEDS: Sodium Chloride 0.45% with KCl 1,000 ML IV SCH (13:31)
[2017-03-22] MEDS ORDERED: INSULIN PUMP SUBCUT SCH ×2 (17:00)
[2017-03-22] MEDS: INSULIN PUMP SUBCUT SCH ×2 (17:06→21:59)
[2017-03-22] MEDS ORDERED: Aluminum Hydroxide/Magnesium Hydroxide/Simethicone Susp 30 ML Cup PO PRN (17:58)
[2017-03-22] MEDS ORDERED: Potassium Chloride 10% 20 MEQ/15 ML Soln 15 ML UD Cup PO SCH (18:15)
[2017-03-22] MEDS: Potassium Chloride 10 MEQ Tab.ER PO SCH (18:43)
[2017-03-23] MEDS: Sodium Chloride 0.45% with KCl 1,000 ML IV SCH (03:10)
[2017-03-23 06:48] LABS: CHLORIDE,CL 106 mmol/L (101-111); SODIUM,NA 139 mmol/L (135-145)
[2017-03-23] MEDS: Potassium Chloride 10 MEQ Tab.ER PO SCH (08:36)
[2017-03-23] MEDS: Enoxaparin 40 MG/0.4 ML Syringe SUBCUT SCH (08:37)
[2017-03-23] MEDS: INSULIN PUMP SUBCUT SCH (08:40)
[2017-03-23 10:47] VITALS: BP 128/85
[2017-03-23] MEDS: Pantoprazole 40 MG Vial IVPUSH SCH (10:50)
--- NOTE | 2017-03-24 02:19 | DISCH ---
ADMITTING DIAGNOSES: 1. Severe diabetic ketoacidosis. 2. Severe dehydration. 3. Nausea and vomiting. DISCHARGE DIAGNOSES: 1. Severe dehydration from nausea and vomiting. 2. Severe diabetic ketoacidosis, resolved. 3. Hypokalemia requiring oral potassium chloride. HISTORY OF PRESENTING ILLNESS: Ms. Elmer Alvarez is a 31-year-old female with a medical history significant for type 1 diabetes mellitus, first diagnosed when she was 17 years old, currently on an insulin pump subcutaneous. Unfortunately, missed her doses in the last 2 days and presented to the hospital with complaints of increasing nausea and vomiting. On admission, the patient was noted to have severe diabetic ketoacidosis and was admitted to the hospital. She was treated with IV insulin drip and she received at least 4 L of fluid boluses and then continued on IV fluids. Her anion gap was elevated at the time of admission, which has improved. Her bicarbonate has also improved on this admission. We were able to switch her to subcutaneous insulin. She manages her insulin pump. She was also noted to have hypokalemia requiring oral and IV potassium chloride supplement on this admission. She was complaining of some epigastric pain suggestive of possible gastritis. The patient was treated with IV Protonix which improved her symptoms. She is stable at this time. She is discharged home in stable condition. She is advised to follow with her primary care physician in the next one week of time. PHYSICAL EXAMINATION: Vital Signs: On the day of discharge vitals; temperature of 97.5, pulse of 79, blood pressure of 128/85, respiratory rate of 18, saturating at 100% on room air. General Appearance: The patient is well oriented to time, place, and person. Follows commands spontaneously. Cardiovascular System: S1, S2 heard with normal intensity. No gallops. Respiratory System: Clear to auscultation bilaterally. No wheeze. No crepitations. Abdomen: Soft. Bowel sounds positive. Nontender. No rigidity. Extremities: No edema in bilateral lower extremities. Neurologic: No gross focal neurological deficits. DISCHARGE MEDICATIONS: Include: 1. NovoLog insulin to be used in her subcutaneous pump. 2. Levonorgestrel 1 application vaginal as directed. 3. Levothyroxine 1 tablet daily. 4. Potassium chloride 20 mEq twice a day for the next 5 days. 5. Valtrex 500 mg oral twice a day as needed. CONDITION ON ADMISSION: Poor. CONDITION ON DISCHARGE: Stable. ACTIVITY: As tolerated. DIET: Consistent carbohydrate diet. FOLLOWUP: Follow up with primary care physician in the next 1 week of time. TIME SPENT: Spent over 35 minutes of time in evaluating and treating this patient and making discharge orders. [facility] /[id number]
== END 2017-03-23 13:15 | disposition home or self-care (01) | DRG 420 ==
LOC: DL.ED 22:42 → UNDOADMIN 03-21 02:20 → DL.MS 03-21 02:20
PROVIDERS: ADMIT Internal Medicine; ATTEND Internal Medicine
DX: E10.10 Type 1 diabetes mellitus with ketoacidosis without coma (principal); Z96.41 Presence of insulin pump (external) (internal); E87.6 Hypokalemia; E86.0 Dehydration; R11.2 Nausea with vomiting, unspecified; K29.70 Gastritis, unspecified, without bleeding; D72.829 Elevated white blood cell count, unspecified; E06.3 Autoimmune thyroiditis; Z91.040 Latex allergy status; Z79.899 Other long term (current) drug therapy
CPT/HCPCS: 36415; 36600; 80048; 80053; 81001; 81025; 82009; 82150; 82803; 82962; 83605; 83690; 83735; 84100; 85025; 96365; 96366; 96367; 96372; 96375; 96376; 99285; A9270-GY; C9113; J1650; J1815; J2405; J2765; J3480; J7030

== ENCOUNTER 2017-04-06 17:13 | Emergency (ER) | payer BC ==
[2017-04-06] MEDS ORDERED: Bacitracin Oint 1 GM U/D Packet TOP ONE (17:21)
[2017-04-06] MEDS ORDERED: Lidocaine 1% 30 ML SDV INJECT ONE (17:21)
--- NOTE | 2017-04-06 17:27 | EDM.PDOC ---
ED HPI GENERAL MEDICAL PROBLEM - General Stated Complaint: TIP OF FINGER CUT, [id number] Time Seen by Provider: 04/06/17 17:20 Source of Information: Reports: Patient History Limitations: Reports: No Limitations - History of Present Illness INITIAL COMMENTS - FREE TEXT/NARRATIVE: This 31 yo female patient reports to the ED with a laceration to her left index finger. The patient reports that she was slicing cucumbers and was distracted by her children and dog when she cut her finger. Onset: Today Onset Date: 04/06/17 Duration: Minutes:, Constant Location: Reports: Upper Extremity, Left Quality: Reports: Ache, Dull Severity: Mild Improves with: Reports: None Worsens with: Reports: None Associated Symptoms: Reports: No Other Symptoms - Related Data Allergies Allergy/AdvReac Type Severity Reaction Status Date / Time latex Allergy Rash Verified 03/21/17 04:07 Home Meds: Home Meds Insulin Aspart [NovoLOG] 35 - 45 units IMPLANT ASDIRECTED 10/29/16 [History] Levothyroxine [Synthroid] 1 tab PO DAILY 12/18/16 [History] Levonorgestrel [Lalitha] 1 applic VAG ASDIRECTED 03/21/17 [History] valACYclovir HCl [Valtrex] 500 mg PO BID PRN 03/21/17 [History] Past Medical History HEENT History: Reports: None Cardiovascular History: Reports: None Respiratory History: Reports: None Gastrointestinal History: Reports: None Genitourinary History: Reports: None 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: Musculoskeletal History: Reports: None Neurological History: Reports: None Psychiatric History: Reports: None Endocrine/Metabolic History: Reports: Diabetes, Type I Hematologic History: Reports: None Immunologic History: Reports: None Oncologic (Cancer) History: Reports: None Dermatologic History: Reports: None - Infectious Disease History Infectious Disease History: Reports: Chicken Pox, Other (See Below) Other Infectious Disease History: fifth disease Social & Family History - Family History Family Medical History: Noncontributory - Tobacco Use Smoking Status *Q: Never Smoker Second Hand Smoke Exposure: No - Caffeine Use Caffeine Use: Reports: Coffee, Soda - Alcohol Use Days Per Week of Alcohol Use: 2 Number of Drinks Per Day: 1 Total Drinks Per Week: 2 - Recreational Drug Use Recreational Drug Use: No - Living Situation & Occupation Living situation: Reports: with Family Occupation: Employed ED ROS GENERAL - Review of Systems Review Of Systems: ROS reveals no pertinent complaints other than HPI. ED EXAM, SKIN/RASH Exam: See Below Exam Limited By: No Limitations General Appearance: Alert, WD/WN, Mild Distress Eye Exam: Bilateral Eye: EOMI, Normal Inspection, PERRL Ears: Normal External Exam, Normal Canal, Hearing Grossly Normal, Normal TMs Nose: Normal Inspection, Normal Mucosa, No Blood Throat/Mouth: Normal Inspection, Normal Lips, Normal Teeth, Normal Gums, Normal Oropharynx, Normal Voice, No Airway Compromise Head: Atraumatic, Normocephalic Neck: Normal Inspection, Supple, Non-Tender, Full Range of Motion Respiratory/Chest: No Respiratory Distress, Lungs Clear, Normal Breath Sounds, No Accessory Muscle Use, Chest Non-Tender Cardiovascular: Normal Peripheral Pulses, Regular Rate, Rhythm, No Edema, No Gallop, No JVD, No Murmur, No Rub GI/Abdominal: Normal Bowel Sounds, Soft, Non-Tender, No Organomegaly, No Distention, No Abnormal Bruit, No Mass (Female) Exam: Deferred Rectal (Female) Exam: Deferred Back Exam: Normal Inspection, Full Range of Motion, NT Extremities: Normal Range of Motion, Non-Tender, No Pedal Edema, Normal Capillary Refill Neurological: Alert, Oriented, CN II-XII Intact, Normal Cognition, Normal Gait, Normal Reflexes, No Motor/Sensory Deficits Psychiatric: Normal Affect, Normal Mood Skin: Warm, Dry, Normal Color, No Rash Location, Skin: Upper Extremity, Left Characteristics: Linear Lymphatic: No Adenopathy ED SKIN PROCEDURES - Laceration/Wound Repair Left Distal Finger Lac/Wound length In cm: 1.5 Appearance: Subcutaneous Distal NVT: Neuro & Vascular Intact Anesthetic Type: Local Local Anesthesia - Lidocaine (Xylocaine): 1% Plain Local Anesthetic Volume: 1cc Skin Prep: Chlorhexidine (Hibiciens), Saline Exploration/Debridement/Repair: Wound Explored, In a Bloodless Field, Explored to Base, No Foreign Material Found Closed with: Sutures Suture Size: other (5-0) # of Sutures: 6 Suture Type: Prolene, Interrupted, Simple Drain Placement: No Sterile Dressing Applied: Nurse Tetanus Status Addressed: Yes Complications: No Course - Vital Signs Last Recorded V/S: Last Vital Signs Temp 36.9 C 04/06/17 17:27 Pulse 95 04/06/17 17:27 Resp 20 04/06/17 17:27 BP 94/74 04/06/17 17:27 Pulse Ox 100 04/06/17 17:27 - Orders/Labs/Meds Meds: Medications Discontinued Medications Generic Name Dose Route Start Last Admin Trade Name [place] PRN Reason Stop Dose Admin Bacitracin 1 dose 04/06/17 17:21 Bacitracin Oint 1 Gm TOP 04/06/17 17:22 ONETIME ONE Lidocaine HCl 30 ml 04/06/17 17:21 Xylocaine-Mpf 1% INJECT 04/06/17 17:22 ONETIME ONE Departure - Departure Time of Disposition: 17:52 Disposition: Home, Self-Care 01 Condition: Good Clinical Impression: Finger laceration Qualifiers: Encounter type: initial encounter Finger: index finger Damage to nail status: without damage Foreign body presence: without foreign body Laterality: left Qualified Code(s): S61.211A - Laceration without foreign body of left index finger without damage to nail, initial encounter - Discharge Information Instructions: Laceration Care, Adult, [id number] Care Plan Goals: The patient was advised of the examination results during the visit. The skin margins were well approximated during the visit. The patient should have the sutures removed in 10-14 days. The patient should keep the area clean and dry over the next 24 hours. If the patient has any additional symptoms or concerns, the patient should follow-up with her primary care facility or return to the emergency department.
[2017-04-06 17:28] VITALS: BP 94/74
== END 2017-04-06 18:00 | disposition home or self-care (01) ==
LOC: DL.ED 17:13
DX: S61.211A Laceration without foreign body of left index finger without damage to nail, initial encounter (principal); E10.9 Type 1 diabetes mellitus without complications; Z91.040 Latex allergy status; Z79.899 Other long term (current) drug therapy; W45.8XXA Other foreign body or object entering through skin, initial encounter
CPT/HCPCS: 12001; 99282

== ENCOUNTER 2017-09-02 06:30 | Day surgery (SDC) | payer BC ==
[2017-09-02] MEDS ORDERED: Bupivacaine 0.5% 10 ML SDV INJECT ONE ×3 (06:31→10:49)
[2017-09-02] MEDS ORDERED: fentaNYL 100 MCG/2 ML SDV IV ONE (06:31)
[2017-09-02] MEDS ORDERED: Midazolam 1 MG/ML 2 ML SDV IV ONE (06:31)
[2017-09-02] MEDS ORDERED: Ondansetron 4 MG/2 ML SDV IV ONE (06:31)
[2017-09-02] MEDS ORDERED: Propofol 200 MG/20 ML SDV IV ONE (06:31)
[2017-09-02] MEDS ORDERED: Lidocaine 1% 30 ML SDV INJECT ONE ×3 (06:31→10:49)
[2017-09-02] MEDS ORDERED: Glycopyrrolate 0.2 MG/ML 2 ML SDV IV ONE (06:31)
[2017-09-02] MEDS ORDERED: Famotidine 20 MG/2 ML SDV IV ONE (06:31)
[2017-09-02] MEDS ORDERED: ceFAZolin 2 GM in Premix Bag 1 BAG IV ONE (07:00)
[2017-09-02] MEDS ORDERED: Lactated Ringers 1,000 ML IV SCH (07:15)
[2017-09-02] MEDS ORDERED: Famotidine 20 MG/2 ML SDV IVPUSH ONE (07:45)
[2017-09-02] MEDS ORDERED: Lidocaine 1% 30 ML SDV ONE (07:49)
[2017-09-02] MEDS ORDERED: Bupivacaine 0.5% 10 ML SDV ONE ×2 (07:49→07:57)
[2017-09-02] MEDS ORDERED: Famotidine 20 MG/2 ML SDV ONE (07:59)
[2017-09-02] MEDS ORDERED: ceFAZolin 1 GM Vial IVPUSH ONE (08:00)
[2017-09-02] MEDS ORDERED: Acetaminophen/oxyCODONE 325-5 MG Tab PO PRN (11:11)
--- NOTE | 2017-09-02 11:23 | PCM.OPNOTE ---
- General Post-Op/Procedure Note Date of Surgery/Procedure: 09/02/17 Operative Procedure(s): left ankle tendon adhesion release with flexor hallucis longus tendon lengthening Condition: Good Free Text/Narrative:: Intake & Output 09/01/17 09/02/17 09/02/17 22:59 06:59 14:59 Intake Total 50 Balance 50
[2017-09-02 14:45] VITALS: BP 130/82
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
== END 2017-09-02 14:30 | disposition home or self-care (01) ==
LOC: DL.SDS 06:30
PROVIDERS: ATTEND Podiatrist
DX: M21.6X2 Other acquired deformities of left foot (principal); M67.874 Other specified disorders of tendon, left ankle and foot
CPT/HCPCS: 28261; 81025; 82962; J0690; J2250; J2405; J2704; J3010; J7120; J3490; S0028

== ENCOUNTER 2018-09-24 23:25 | Emergency (ER) | payer BC, OTHER ==
[2018-09-24] MEDS ORDERED: Sodium Chloride 0.9% 1,000 ML IV ONE (23:34)
[2018-09-24] MEDS ORDERED: Metoclopramide 10 MG/2 ML SDV IVPUSH ONE (23:35)
[2018-09-24] MEDS ORDERED: Famotidine 20 MG/2 ML SDV IVPUSH ONE (23:35)
[2018-09-25 00:30] LABS: ANION GAP 17.5; CHLORIDE,CL 99 mmol/L (101-111); SODIUM,NA 136 mmol/L (135-145)
[2018-09-25] MEDS ORDERED: Promethazine 25 MG/ML SDV IM ONE (01:13)
[2018-09-25] MEDS ORDERED: Sodium Chloride 0.9% 1,000 ML IV ONE (01:26)
[2018-09-25] MEDS ORDERED: fentaNYL 100 MCG/2 ML SDV IVPUSH ONE (01:26)
--- NOTE | 2018-09-25 02:25 | EDM.PDOC ---
ED HPI GENERAL MEDICAL PROBLEM - General Chief Complaint: Gastrointestinal Problem Stated Complaint: VOMITING [id number] Time Seen by Provider: 09/24/18 23:35 Source of Information: Reports: Patient History Limitations: Reports: No Limitations - History of Present Illness INITIAL COMMENTS - FREE TEXT/NARRATIVE: c/o nausea and vomiting with headache. To many emesis to count. Has been constant last few hours. Tried zofran x 2 doses at home without relief. Hx migraines, rates headache 2-3/10 above right eye. Migraines similar but usually more in middle of forehead. No light sensitivity. No diarrhea. No sore throat or ear pain. 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) Frontal Headache Pain Score (Numeric/FACES): 6 - Related Data Allergies Allergy/AdvReac Type Severity Reaction Status Date / Time latex Allergy Rash Verified 09/25/18 00:05 Home Meds: Home Meds Insulin Aspart [NovoLOG] 35 - 45 units IMPLANT ASDIRECTED 10/29/16 [History] Levothyroxine [Synthroid] 1 tab PO DAILY 12/18/16 [History] Levonorgestrel [Lalitha] 1 applic VAG ASDIRECTED 03/21/17 [History] valACYclovir HCl [Valtrex] 500 mg PO BID PRN 03/21/17 [History] Aspirin/Acetaminophen/Caffeine [Eql Migraine Formula Caplet] 1 tab PO ASDIRECTED PRN 09/02/17 [History] Ondansetron [Zofran ODT] 4 mg PO Q6H PRN 09/25/18 [History] Past Medical History HEENT History: Reports: Impaired Vision, Sinusitis, Other (See Below) Other HEENT History: WEARS CORRECTIVE LENS Cardiovascular History: Reports: None Respiratory History: Reports: None Gastrointestinal History: Reports: None Genitourinary History: Reports: None 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: Musculoskeletal History: Reports: Back Pain, Chronic, Other (See Below) Other Musculoskeletal History: HAMMERTOE Neurological History: Reports: Migraines Psychiatric History: Reports: Anxiety Endocrine/Metabolic History: Reports: Diabetes, Type I, Other (See Below) Other Endocrine/Metabolic History: IRAIS'S THYRIODITITIS Hematologic History: Reports: None Immunologic History: Reports: None Oncologic (Cancer) History: Reports: None Dermatologic History: Reports: None - Infectious Disease History Infectious Disease History: Reports: Chicken Pox, Influenza, Other (See Below) Other Infectious Disease History: fifth disease - Past Surgical History Head Surgeries/Procedures: Reports: None HEENT Surgical History: Reports: None Cardiovascular Surgical History: Reports: None Respiratory Surgical History: Reports: None GI Surgical History: Reports: None Female Surgical History: Reports: Section Endocrine Surgical History: Reports: None Neurological Surgical History: Reports: None Musculoskeletal Surgical History: Reports: None Oncologic Surgical History: Reports: None Dermatological Surgical History: Reports: None Social & Family History - Family History Family Medical History: Noncontributory - Tobacco Use Smoking Status *Q: Never Smoker - Caffeine Use Caffeine Use: Reports: Coffee, Soda - Recreational Drug Use Recreational Drug Use: No - Living Situation & Occupation Living situation: Reports: with Family Occupation: Employed ED ROS GENERAL - Review of Systems Review Of Systems: ROS reveals no pertinent complaints other than HPI. ED EXAM, GI/ABD - Physical Exam Exam: See Below Exam Limited By: No Limitations General Appearance: Alert, Mild Distress, Active Emesis Eyes: Bilateral: EOMI Ears: Normal External Exam Nose: Normal Inspection Throat/Mouth: Normal Inspection Head: Atraumatic, Normocephalic Neck: Normal Inspection Respiratory/Chest: No Respiratory Distress, Lungs Clear, Normal Breath Sounds Cardiovascular: Normal Peripheral Pulses GI/Abdominal Exam: Normal Bowel Sounds, Soft, No Distention. No: Guarding, Tender Back Exam: Full Range of Motion Extremities: Normal Inspection Neurological: Alert, Oriented, Normal Cognition Psychiatric: Normal Affect, Normal Mood Skin Exam: Warm, Dry, Intact, Normal Color Course - Vital Signs Last Recorded V/S: Last Vital Signs Temp 99.3 F 09/25/18 05:55 Pulse 92 09/25/18 05:55 Resp 16 09/25/18 05:55 BP 98/51 L 09/25/18 05:55 Pulse Ox 94 L 09/25/18 05:55 - Orders/Labs/Meds Orders: Active Orders 24 hr Category Date Time Status Glucose [Blood Glucose Check, Bedside] [RC] ONETIME Care 09/24/18 23:33 Active Glucose [Blood Glucose Check, Bedside] [RC] ONETIME Care 09/25/18 05:39 Active Labs: Laboratory Tests 01/13/19 01/13/19 01/13/19 Range/Units 23:45 23:45 23:45 WBC 8.7 (5.0-10.0) 10^3/uL RBC 4.69 (4.2-5.4) 10^6/uL Hgb 14.6 (12.0-16.0) g/dL Hct 41.7 (37.0-47.0) % MCV 88.9 (80-100) fL MCH 31.1 (27.0-34.0) pg MCHC 35.0 (33.0-35.0) g/dL Plt Count 264 (150-450) 10^3/uL Neut % (Auto) 71.6 (42.2-75.2) % Lymph % (Auto) 21.3 (20.5-50.1) % [place] % (Auto) 6.6 (2-8) % Eos % (Auto) 0.3 L (1.0-3.0) % Baso % (Auto) 0.2 (0.0-1.0) % Sodium 136 (135-145) mmol/L Potassium 3.5 L (3.6-5.0) mmol/L Chloride 99 L (101-111) mmol/L Carbon Dioxide 23.0 (21.0-31.0) mmol/L Anion Gap 17.5 BUN 16 (7-18) mg/dL Creatinine 0.5 L (0.6-1.3) mg/dL Est Cr Clr Drug Dosing 145.35 mL/min Estimated GFR (MDRD) > 60 BUN/Creatinine Ratio 32.00 Glucose 140 H (74-105) mg/dL POC Glucose (70-105) mg/dl Lactic Acid 2.0 (0.5-2.2) mmol/L Calcium 9.5 (8.4-10.2) mg/dl Magnesium 1.8 (1.8-2.5) mg/dL Total Bilirubin 1.3 H (0.2-1.0) mg/dL AST 35 (10-42) IU/L ALT 29 (10-60) IU/L Alkaline Phosphatase 66 (42-121) IU/L Total Protein 7.9 (6.7-8.2) g/dl Albumin 4.3 (3.2-5.5) g/dl Globulin 3.6 Albumin/Globulin Ratio 1.19 09/25/18 09/25/18 Range/Units 00:14 05:58 WBC (5.0-10.0) 10^3/uL RBC (4.2-5.4) 10^6/uL Hgb (12.0-16.0) g/dL Hct (37.0-47.0) % MCV (80-100) fL MCH (27.0-34.0) pg MCHC (33.0-35.0) g/dL Plt Count (150-450) 10^3/uL Neut % (Auto) (42.2-75.2) % Lymph % (Auto) (20.5-50.1) % [place] % (Auto) (2-8) % Eos % (Auto) (1.0-3.0) % Baso % (Auto) (0.0-1.0) % Sodium (135-145) mmol/L Potassium (3.6-5.0) mmol/L Chloride (101-111) mmol/L Carbon Dioxide (21.0-31.0) mmol/L Anion Gap BUN (7-18) mg/dL Creatinine (0.6-1.3) mg/dL Est Cr Clr Drug Dosing mL/min Estimated GFR (MDRD) BUN/Creatinine Ratio Glucose (74-105) mg/dL POC Glucose 152 H 173 H (70-105) mg/dl Lactic Acid (0.5-2.2) mmol/L Calcium (8.4-10.2) mg/dl Magnesium (1.8-2.5) mg/dL Total Bilirubin (0.2-1.0) mg/dL AST (10-42) IU/L ALT (10-60) IU/L Alkaline Phosphatase (42-121) IU/L Total Protein (6.7-8.2) g/dl Albumin (3.2-5.5) g/dl Globulin Albumin/Globulin Ratio Meds: Medications Discontinued Medications Generic Name Dose Route Start Last Admin Trade Name Freq PRN Reason Stop Dose Admin Famotidine 20 mg 09/24/18 23:35 09/24/18 23:50 Pepcid IVPUSH 09/24/18 23:36 20 mg ONETIME ONE Administration Fentanyl 25 mcg 09/25/18 01:26 09/25/18 01:33 Sublimaze IVPUSH 09/25/18 01:27 25 mcg ONETIME ONE Administration Sodium Chloride 1,000 mls @ 999 mls/hr 09/24/18 23:34 09/24/18 23:47 Normal Saline IV 09/25/18 00:34 999 mls/hr .BOLUS ONE Administration Sodium Chloride 1,000 mls @ 999 mls/hr 09/25/18 01:26 09/25/18 01:33 Normal Saline IV 09/25/18 02:26 999 mls/hr .BOLUS ONE Administration Metoclopramide HCl 10 mg 09/24/18 23:35 09/24/18 23:47 Reglan IVPUSH 09/24/18 23:36 10 mg ONETIME ONE Administration Promethazine HCl 25 mg 09/25/18 01:13 09/25/18 01:22 Phenergan IM 09/25/18 01:14 25 mg ONETIME ONE Administration - Re-Assessments/Exams Free Text/Narrative Re-Assessment/Exam: 09/25/18 05:36 Poor response to home zofran, Given Reglan on presentation to ED, continued vomiting. Postive response to phenergan, no further emesis, able to rest. Headache resolved with Fentanyl. Continued to rest. Arouses easily 09/25/18 06:00 Nausea and headache improved. Home. Departure - Departure Time of Disposition: 06:10 Disposition: Home, Self-Care 01 Condition: Good Clinical Impression: Gastroenteritis, Frontal headache Diabetes mellitus type I Qualifiers: Diabetes mellitus complication status: with other specified complication Qualified Code(s): E10.69 - Type 1 diabetes mellitus with other specified complication - Discharge Information *PRESCRIPTION DRUG MONITORING PROGRAM REVIEWED*: Not Applicable Instructions: Viral Gastroenteritis, Adult Referrals: PCP,Unobtain [Primary Care Provider] - Forms: ED Department Discharge Additional Instructions: Monitor blood sugars follow up if symptoms worsen and not tolerating oral liquids frequent small amounts liquids gradual in crease n volume, advance diet as tolerated zofran 4mg ODT one every 4 hours as needed for nausea/vomiting. - My Orders Last 24 Hours: My Active Orders 09/24/18 23:33 Glucose [Blood Glucose Check, Bedside] [RC] ONETIME 09/25/18 05:39 Glucose [Blood Glucose Check, Bedside] [RC] ONETIME - Assessment/Plan Last 24 Hours: My Active Orders 09/24/18 23:33 Glucose [Blood Glucose Check, Bedside] [] ONETIME 09/25/18 05:39 Glucose [Blood Glucose Check, Bedside] [] ONETIME
[2018-09-25 05:56] VITALS: BP 98/51
== END 2018-09-25 06:10 | disposition home or self-care (01) ==
LOC: DL.ED 23:25
DX: K52.9 Noninfective gastroenteritis and colitis, unspecified (principal); E10.69 Type 1 diabetes mellitus with other specified complication; R51 Headache; Z91.040 Latex allergy status
CPT/HCPCS: 36415; 80053; 82962; 83605; 83735; 85025; 96361; 96372; 96374; 96375; 99284; J2550; J2765; J3010; J3490; J7030

== ENCOUNTER → 2018-10-31 | Day surgery (SDC) | payer OTHER ==
[~2018-10-31] MED LIST: Dextrose 5%-0.45% NaCl 1,000 ML IV SCH; Midazolam 1 MG/ML 2 ML SDV IV ONE; Midazolam 1 MG/ML 2 ML SDV ONE; Sodium Chloride 0.9% 10 ML Syringe FLUSH PRN; fentaNYL 100 MCG/2 ML SDV IV ONE; fentaNYL 100 MCG/2 ML SDV ONE
--- NOTE | 2018-10-31 07:57 | OR ---
DATE: 10/31/2018 PROCEDURE: Esophagogastroduodenoscopy and multiple pinch biopsies. INSTRUMENT USED: [id number] Olympus video panendoscope. PREMEDICATIONS: No oral topical anesthesia used. Fentanyl 100 mcg intravenous, Versed 2 mg intravenous. The procedure was done under pulse oximetry, BP recording, and monitoring specialist. INDICATION: The patient with type 1 diabetes mellitus, on insulin, with difficulties of heartburn, dyspepsia, as well as abdominal pain, unexplained and not responsive to medical measures. The esophagogastroduodenoscopy is performed for detection of any active erosive lesions, Gerber esophagus and/or malignancy also under consideration. H. pylori status to be determined. Small bowel biopsies to be obtained for celiac disease, endoscopic hemostasis therapy if needed. DESCRIPTION OF PROCEDURE: The scope was passed with ease. Adequate visualization of the esophagus was made from proximal to distal areas. No upper esophageal lesions identified. No distal esophageal stricture. No uphill or downhill esophageal varices. No Karissa-Patel tear. No evidence of erosive esophagitis by Woodward criteria. No esophageal polyp or tumor mass identified. Z-line was seen at around 35 cm distal to the oral verge. Four- quadrant biopsies were taken and sent for any histopathologic evidence of intestinal metaplasia. No proximal gastric varices noted. Gastric fundus examination was extremely limited due to the presence of large amount of solid food material that could not be aspirated clear. The examination of the gastric mucosa again was limited due to the presence of large amount of solid food material. No gastric ulcer, malignant mass, or vascular ectasia identified. Multiple pinch biopsies were taken from the gastric antrum and proximal body and sent for PyloriTek test for H. pylori and histopathology. Duodenal bulb showed no ulcer. Visualized second part of the duodenum was unremarkable, multiple pinch biopsies, 4 in number, were taken from different areas of the second part of the duodenum and tissues were obtained from the duodenal bulb at 9 o'clock and 12 o'clock positions and sent for any histopathologic evidence of celiac disease. No bleeding was noted from any of the visualized areas at the completion of examination. Photographs were taken from the duodenal bulb, gastric antrum, fundus, and distal esophagus. IMPRESSION: Gastroparesis diabeticorum. The patient tolerated the procedure well. [facility] /[id number]
[2018-10-31 09:38] VITALS: BP 107/70
== END | disposition home or self-care (01) ==
LOC: DL.ENDO 05:53
PROVIDERS: ATTEND Internal Medicine Gastroenterology
DX: E10.43 Type 1 diabetes mellitus with diabetic autonomic (poly)neuropathy (principal); K31.84 Gastroparesis; K29.50 Unspecified chronic gastritis without bleeding; R12 Heartburn; E03.9 Hypothyroidism, unspecified; E06.3 Autoimmune thyroiditis; Z79.4 Long term (current) use of insulin; Z91.040 Latex allergy status; Z98.890 Other specified postprocedural states
CPT/HCPCS: 43239; 87077; J2250; J3010; J7042

== ENCOUNTER 2018-11-11 19:10 | Emergency (ER) | payer OTHER ==
[2018-11-11] MEDS ORDERED: Metoclopramide 10 MG Tab PO ONE (19:11)
[2018-11-11 19:40] VITALS: BP 119/80
[2018-11-11] MEDS ORDERED: Sodium Chloride 0.9% 1,000 ML IV ONE ×2 (19:42→20:42)
[2018-11-11] MEDS ORDERED: Metoclopramide 10 MG/2 ML SDV IVPUSH ONE (19:42)
[2018-11-11 20:33] LABS: ANION GAP 14.9; CHLORIDE,CL 98 mmol/L (101-111); SODIUM,NA 137 mmol/L (135-145)
[2018-11-11] MEDS ORDERED: Metoclopramide 10 MG Tab ONE (20:45)
--- NOTE | 2018-11-11 20:55 | EDM.PDOC ---
ED HPI GENERAL MEDICAL PROBLEM - General Chief Complaint: Gastrointestinal Problem Stated Complaint: VOMITING HEADACHE Time Seen by Provider: 11/11/18 19:40 Source of Information: Reports: Patient History Limitations: Reports: No Limitations - History of Present Illness INITIAL COMMENTS - FREE TEXT/NARRATIVE: ED with c/o nausea and vomiting since this am on awakening. Vomited 12+ times today. Unable to keep any liquids don. Zofran not helping. Hx type 1 diabetes with gastroparesis. New insulin pump one month and had been feeling better until today. No fever chills, No HEENT sx, No diarrhea, No urinary complaints. Blood sugars 95-115 today. , Headache Pain Score (Numeric/FACES): 3 - Related Data Allergies Allergy/AdvReac Type Severity Reaction Status Date / Time latex Allergy Rash Verified 10/31/18 06:20 Home Meds: Home Meds Insulin Aspart [NovoLOG] 35 - 45 units IMPLANT ASDIRECTED 10/29/16 [History] Levothyroxine [Synthroid] 50 mcg PO DAILY 12/18/16 [History] valACYclovir HCl [Valtrex] 500 mg PO BID PRN 03/21/17 [History] Aspirin/Acetaminophen/Caffeine [Eql Migraine Formula Caplet] 1 tab PO ASDIRECTED PRN 09/02/17 [History] Ondansetron [Zofran ODT] 4 mg PO Q6H PRN 09/25/18 [History] PNV No.115/Iron Fumarate/FA [ 19 Chewable Tablet] 1 tab PO DAILY [History] Past Medical History HEENT History: Reports: Impaired Vision, Sinusitis, Other (See Below) Other HEENT History: WEARS CORRECTIVE LENS Cardiovascular History: Reports: None Respiratory History: Reports: None Gastrointestinal History: Reports: Chronic Constipation, Chronic Diarrhea, GERD , Other (See Below) Other Gastrointestinal History: gastroproesis Genitourinary History: Reports: UTI, 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: Musculoskeletal History: Reports: Back Pain, Chronic, Other (See Below) Other Musculoskeletal History: HAMMERTOE Neurological History: Reports: Migraines Psychiatric History: Reports: Anxiety Endocrine/Metabolic History: Reports: Diabetes, Type I, Hypothyroidism, Other ( See Below) Other Endocrine/Metabolic History: IRAIS'S THYRIODITITIS Hematologic History: Reports: None Immunologic History: Reports: None Oncologic (Cancer) History: Reports: None Dermatologic History: Reports: None - Infectious Disease History Infectious Disease History: Reports: Chicken Pox Other Infectious Disease History: fifth disease - Past Surgical History Head Surgeries/Procedures: Reports: None HEENT Surgical History: Reports: None Cardiovascular Surgical History: Reports: None Respiratory Surgical History: Reports: None GI Surgical History: Reports: None Female Surgical History: Reports: Section Endocrine Surgical History: Reports: None Neurological Surgical History: Reports: None Musculoskeletal Surgical History: Reports: None Oncologic Surgical History: Reports: None Dermatological Surgical History: Reports: None Social & Family History - Family History Family Medical History: Noncontributory - Tobacco Use Smoking Status *Q: Never Smoker - Caffeine Use Caffeine Use: Reports: None Caffeine Use Comment: 4 cups coffee daily. soda prn - Recreational Drug Use Recreational Drug Use: No - Living Situation & Occupation Living situation: Reports: with Family Occupation: Employed ED ROS GENERAL - Review of Systems Review Of Systems: ROS reveals no pertinent complaints other than HPI. ED EXAM, GI/ABD - Physical Exam Exam: See Below Exam Limited By: No Limitations General Appearance: Alert, Moderate Distress (frequ dry heaves) Eyes: Bilateral: EOMI Ears: Normal External Exam, Normal TMs Nose: Normal Inspection Throat/Mouth: Normal Voice, Other (mucus membranes parched, lips chapped) Head: Atraumatic, Normocephalic Neck: Normal Inspection, Full Range of Motion Respiratory/Chest: No Respiratory Distress, Lungs Clear, Normal Breath Sounds Cardiovascular: Normal Peripheral Pulses, Regular Rate, Rhythm GI/Abdominal Exam: Normal Bowel Sounds, Soft. No: Distended, Guarding, Tender Extremities: Normal Inspection, Normal Range of Motion Neurological: Alert, Oriented Psychiatric: Normal Affect, Normal Mood Skin Exam: Warm, Dry, Intact, Normal Color Course - Vital Signs Last Recorded V/S: Last Vital Signs Temp 96.9 F 11/11/18 19:36 Pulse 86 11/11/18 19:36 Resp 18 11/11/18 19:36 BP 119/80 11/11/18 19:36 Pulse Ox 100 11/11/18 19:36 - Orders/Labs/Meds Orders: Active Orders 24 hr Category Date Time Status Blood Glucose Check, Bedside [RC] ONETIME Care 11/11/18 19:42 Active Labs: Laboratory Tests 11/11/18 11/11/18 11/11/18 Range/Units 19:50 19:50 19:50 WBC 8.5 (5.0-10.0) 10^3/uL RBC 4.52 (4.2-5.4) 10^6/uL Hgb 14.0 (12.0-16.0) g/dL Hct 41.0 (37.0-47.0) % MCV 90.7 (80-100) fL MCH 31.0 (27.0-34.0) pg MCHC 34.1 (33.0-35.0) g/dL Plt Count 291 (150-450) 10^3/uL Neut % (Auto) 74.5 (42.2-75.2) % Lymph % (Auto) 18.0 L (20.5-50.1) % [facility] % (Auto) 6.8 (2-8) % Eos % (Auto) 0.6 L (1.0-3.0) % Baso % (Auto) 0.1 (0.0-1.0) % Sodium 137 (135-145) mmol/L Potassium 3.9 (3.6-5.0) mmol/L Chloride 98 L (101-111) mmol/L Carbon Dioxide 28.0 (21.0-31.0) mmol/L Anion Gap 14.9 BUN 12 (7-18) mg/dL Creatinine 0.6 (0.6-1.3) mg/dL Est Cr Clr Drug Dosing 121.13 mL/min Estimated GFR (MDRD) > 60 BUN/Creatinine Ratio 20.00 Glucose 106 H (74-105) mg/dL POC Glucose (70-105) mg/dl Lactic Acid 1.1 (0.5-2.2) mmol/L Calcium 9.3 (8.4-10.2) mg/dl Total Bilirubin 0.8 (0.2-1.0) mg/dL AST 23 (10-42) IU/L ALT 18 (10-60) IU/L Alkaline Phosphatase 69 (42-121) IU/L Total Protein 7.4 (6.7-8.2) g/dl Albumin 3.9 (3.2-5.5) g/dl Globulin 3.5 Albumin/Globulin Ratio 1.11 Amylase 32 (28-100) U/L Lipase 18 L (22-51) U/L Ketones Negative 11/11/18 Range/Units 19:59 WBC (5.0-10.0) 10^3/uL RBC (4.2-5.4) 10^6/uL Hgb (12.0-16.0) g/dL Hct (37.0-47.0) % MCV (80-100) fL MCH (27.0-34.0) pg MCHC (33.0-35.0) g/dL Plt Count (150-450) 10^3/uL Neut % (Auto) (42.2-75.2) % Lymph % (Auto) (20.5-50.1) % [facility] % (Auto) (2-8) % Eos % (Auto) (1.0-3.0) % Baso % (Auto) (0.0-1.0) % Sodium (135-145) mmol/L Potassium (3.6-5.0) mmol/L Chloride (101-111) mmol/L Carbon Dioxide (21.0-31.0) mmol/L Anion Gap BUN (7-18) mg/dL Creatinine (0.6-1.3) mg/dL Est Cr Clr Drug Dosing mL/min Estimated GFR (MDRD) BUN/Creatinine Ratio Glucose (74-105) mg/dL POC Glucose 94 (70-105) mg/dl Lactic Acid (0.5-2.2) mmol/L Calcium (8.4-10.2) mg/dl Total Bilirubin (0.2-1.0) mg/dL AST (10-42) IU/L ALT (10-60) IU/L Alkaline Phosphatase (42-121) IU/L Total Protein (6.7-8.2) g/dl Albumin (3.2-5.5) g/dl Globulin Albumin/Globulin Ratio Amylase (28-100) U/L Lipase (22-51) U/L Ketones Meds: Medications Discontinued Medications Generic Name Dose Route Start Last Admin Trade Name Freq PRN Reason Stop Dose Admin Sodium Chloride 1,000 mls @ 999 mls/hr 11/11/18 19:42 11/11/18 19:52 Normal Saline IV 11/11/18 20:42 999 mls/hr .BOLUS ONE Administration Sodium Chloride 1,000 mls @ 999 mls/hr 11/11/18 20:42 11/11/18 20:52 Normal Saline IV 11/11/18 21:42 999 mls/hr .BOLUS ONE Administration Metoclopramide HCl 10 mg 11/11/18 19:42 11/11/18 19:52 Reglan IVPUSH 11/11/18 19:43 10 mg ONETIME ONE Administration Metoclopramide HCl Confirm 11/11/18 20:45 11/11/18 20:51 Reglan Administered 11/11/18 20:46 Not Given Dose 30 mg .ROUTE .KipCall-MED ONE - Re-Assessments/Exams Free Text/Narrative Re-Assessment/Exam: 11/11/18 20:57 Nausea improved. No voiding yet. VSS Departure - Departure Time of Disposition: 21:58 Disposition: Home, Self-Care 01 Condition: Good Clinical Impression: Nausea & vomiting Qualifiers: Vomiting type: unspecified Vomiting Intractability: unspecified Qualified Code( s): R11.2 - Nausea with vomiting, unspecified Type 1 diabetes Qualifiers: Diabetes mellitus complication status: with other specified complication Qualified Code(s): E10.69 - Type 1 diabetes mellitus with other specified complication - Discharge Information *PRESCRIPTION DRUG MONITORING PROGRAM REVIEWED*: Not Applicable *COPY OF PRESCRIPTION DRUG MONITORING REPORT IN PATIENT GRISEL: Not Applicable Instructions: Vomiting, Adult, Nausea, Adult, [id number] Forms: ED Department Discharge Additional Instructions: small sips liquid advance diet as tolerated monitor and follow up if blood sugars not controlled via pump reglan 10mg one every 6 hours as needed for nausea vomiting - My Orders Last 24 Hours: My Active Orders 11/11/18 19:42 Blood Glucose Check, Bedside [RC] ONETIME - Assessment/Plan Last 24 Hours: My Active Orders 11/11/18 19:42 Blood Glucose Check, Bedside [RC] ONETIME
== END 2018-11-11 22:00 | disposition home or self-care (01) ==
LOC: DL.ED 19:10
DX: R11.2 Nausea with vomiting, unspecified (principal); E10.43 Type 1 diabetes mellitus with diabetic autonomic (poly)neuropathy; K31.84 Gastroparesis; E03.9 Hypothyroidism, unspecified; K21.9 Gastro-esophageal reflux disease without esophagitis; Z79.899 Other long term (current) drug therapy; Z91.040 Latex allergy status
CPT/HCPCS: 36415; 80053; 82009; 82150; 82962; 83605; 83690; 85025; 96365; 96366; 96375; 99284; A9270; J2765; J7030

== ENCOUNTER → 2019-02-01 | Outpatient (CLI) | payer OTHER ==
--- NOTE | 2019-02-01 16:22 | US ---
Clinical history: 33-year-old gravid 3 para 2 (high risk) diabetic patient in first trimester. Provider unable to hear heart tones. Interpretation: Enlarged uterus with a clearly demonstrated central gestational sac that has a uniformly thick chorionic "rind". No clearly reproducible evidence of subchorionic bleed. Viable pole (heart rates 115 mgw373 bpm) with crown-rump length measurement (4.9 mm) equals 6 week 2 day gestation. No myometrial fibroid mass lesion. Symmetric small ovaries with physiologic follicular type cysts. (Largest, probable corpus luteum measuring 1.4 x 2.2 x 2.7 cm). Left ovary measures 3.5 cm L x 2.2 cm W x 2.0 cm AP diameter. Right ovary measures 2.2 cm L x 1.6 cm W x 1.09 cm AP diameter. CONCLUSION: Single live 6 week 2 day intrauterine gestation.
== END ==
LOC: DL.US 15:37
PROVIDERS: ATTEND Family Medicine
DX: O09.91 Supervision of high risk pregnancy, unspecified, first trimester (principal); O76 Abnormality in fetal heart rate and rhythm complicating labor and delivery; Z3A.01 Less than 8 weeks gestation of pregnancy
CPT/HCPCS: 36415; 76801; 84702; 85027; 86850; 86900; 86901

== ENCOUNTER 2019-02-15 21:23 | Emergency (ER) | payer OTHER ==
[2019-02-15] MEDS ORDERED: Sodium Chloride 0.9% 1,000 ML IV ONE (21:48)
[2019-02-15] MEDS ORDERED: Sodium Chloride 0.9% 10 ML Syringe FLUSH PRN (21:48)
[2019-02-15] MEDS ORDERED: Ondansetron 4 MG/2 ML SDV IV ONE (21:48)
[2019-02-15] MEDS ORDERED: Metoclopramide 10 MG/2 ML SDV IVPUSH ONE (22:15)
[2019-02-15 22:40] LABS: ANION GAP 15.7; CHLORIDE,CL 101 mmol/L (101-111); SODIUM,NA 134 mmol/L (135-145)
--- NOTE | 2019-02-15 23:11 | EDM.PDOC ---
ED HPI GENERAL MEDICAL PROBLEM - General Chief Complaint: Gastrointestinal Problem Stated Complaint: CONSTANT VOMMITING- 8 WKS PREG Time Seen by Provider: 02/15/19 21:55 Source of Information: Reports: Patient, RN, RN Notes Reviewed History Limitations: Reports: No Limitations - History of Present Illness INITIAL COMMENTS - FREE TEXT/NARRATIVE: Pt to ER with c/o nausea and vomiting. Pt states she has been vomiting constantly since 3pm. Pt admits to being 8 weeks , as well as Type 1 DM. States blood sugars Denies diarrhea, fever or chills. States she had hyperemesis gravidarum with her last . Onset: Today, Sudden - Related Data Allergies Allergy/AdvReac Type Severity Reaction Status Date / Time latex Allergy Rash Verified 02/15/19 21:53 Home Meds: Home Meds Insulin Aspart [NovoLOG] 35 - 45 units IMPLANT ASDIRECTED 10/29/16 [History] Levothyroxine [Synthroid] 100 mcg PO DAILY 12/18/16 [History] valACYclovir HCl [Valtrex] 500 mg PO BID PRN 03/21/17 [History] Ondansetron [Zofran ODT] 4 mg PO Q6H PRN 09/25/18 [History] PNV No.115/Iron Fumarate/FA [ 19 Chewable Tablet] 1 tab PO DAILY [History] Doxylamine Succinate [Unisom] 0.5 tab PO ASDIRECTED 02/15/19 [History] Past Medical History HEENT History: Reports: Impaired Vision, Sinusitis, Other (See Below) Other HEENT History: WEARS CORRECTIVE LENS Cardiovascular History: Reports: None Respiratory History: Reports: None Gastrointestinal History: Reports: Chronic Constipation, Chronic Diarrhea, GERD , Other (See Below) Other Gastrointestinal History: gastroproesis Genitourinary History: Reports: UTI, 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: Musculoskeletal History: Reports: Back Pain, Chronic, Other (See Below) Other Musculoskeletal History: HAMMERTOE Neurological History: Reports: Migraines Psychiatric History: Reports: Anxiety Endocrine/Metabolic History: Reports: Diabetes, Type I, Hypothyroidism, Other ( See Below) Other Endocrine/Metabolic History: IRAIS'S THYRIODITITIS Hematologic History: Reports: None Immunologic History: Reports: None Oncologic (Cancer) History: Reports: None Dermatologic History: Reports: None - Infectious Disease History Infectious Disease History: Reports: Chicken Pox Other Infectious Disease History: fifth disease - Past Surgical History Head Surgeries/Procedures: Reports: None HEENT Surgical History: Reports: None Cardiovascular Surgical History: Reports: None Respiratory Surgical History: Reports: None GI Surgical History: Reports: None Female Surgical History: Reports: Section Endocrine Surgical History: Reports: None Neurological Surgical History: Reports: None Musculoskeletal Surgical History: Reports: None Oncologic Surgical History: Reports: None Dermatological Surgical History: Reports: None Social & Family History - Family History Family Medical History: Noncontributory - Tobacco Use Smoking Status *Q: Never Smoker - Caffeine Use Caffeine Use: Reports: None Caffeine Use Comment: 4 cups coffee daily. soda prn - Recreational Drug Use Recreational Drug Use: No - Living Situation & Occupation Living situation: Reports: with Family Occupation: Employed ED ROS GENERAL - Review of Systems Review Of Systems: ROS reveals no pertinent complaints other than HPI. ED EXAM - Physical Exam Exam: See Below Exam Limited By: No Limitations General Appearance: Alert, WD/WN, Mild Distress Eye Exam: Bilateral Eye: EOMI, Normal Inspection Ears: Normal External Exam, Hearing Grossly Normal Nose: Normal Inspection Throat/Mouth: Normal Inspection, Normal Voice, No Airway Compromise Head: Atraumatic, Normocephalic Neck: Normal Inspection, Supple, Non-Tender, Full Range of Motion Respiratory/Chest: No Respiratory Distress, Lungs Clear, Normal Breath Sounds, No Accessory Muscle Use, Chest Non-Tender Cardiovascular: Normal Peripheral Pulses, Regular Rate, Rhythm, No Edema, No Gallop, No JVD, No Murmur, No Rub GI/Abdominal Exam: Normal Bowel Sounds, Soft, Non-Tender, No Organomegaly, No Distention, No Abnormal Bruit, No Mass, Pelvis Stable Rectal Exam: Deferred Back Exam: Normal Inspection, Full Range of Motion Extremities: Normal Inspection, Normal Range of Motion, Non-Tender, Normal Capillary Refill, No Pedal Edema Neurological: Alert, Oriented, CN II-XII Intact, Normal Cognition, Normal Gait, Normal Reflexes, No Motor/Sensory Deficits Psychiatric: Normal Affect, Normal Mood Skin Exam: Warm, Dry, Intact, Normal Color, No Rash Lymphatic: No Adenopathy Course - Vital Signs Last Recorded V/S: Last Vital Signs Temp 96.9 F 02/15/19 21:47 Pulse 89 06/06/19 23:12 Resp 16 02/15/19 23:12 BP 112/70 02/15/19 23:12 Pulse Ox 99 02/15/19 23:12 - Orders/Labs/Meds Orders: Active Orders 24 hr Category Date Time Status Peripheral IV Care [RC] . DIRECTED Care 02/15/19 21:49 Active Peripheral IV Insertion Adult [OM.PC] Stat Oth 02/15/19 21:48 Ordered Labs: Laboratory Tests 02/15/19 02/15/19 Range/Units 22:04 22:04 WBC 7.2 (5.0-10.0) 10^3/uL RBC 4.28 (4.2-5.4) 10^6/uL Hgb 13.3 (12.0-16.0) g/dL Hct 37.9 (37.0-47.0) % MCV 88.6 (80-100) fL MCH 31.1 (27.0-34.0) pg MCHC 35.1 H (33.0-35.0) g/dL Plt Count 211 (150-450) 10^3/uL Neut % (Auto) 69.3 (42.2-75.2) % Lymph % (Auto) 21.8 (20.5-50.1) % [place] % (Auto) 8.0 (2-8) % Eos % (Auto) 0.8 L (1.0-3.0) % Baso % (Auto) 0.1 (0.0-1.0) % Sodium 134 L (135-145) mmol/L Potassium 3.7 (3.6-5.0) mmol/L Chloride 101 (101-111) mmol/L Carbon Dioxide 21.0 (21.0-31.0) mmol/L Anion Gap 15.7 BUN 8 (7-18) mg/dL Creatinine 0.4 L (0.6-1.3) mg/dL Est Cr Clr Drug Dosing 185.35 mL/min Estimated GFR (MDRD) > 60 BUN/Creatinine Ratio 20.00 Glucose 163 H (74-105) mg/dL Calcium 8.5 (8.4-10.2) mg/dl Total Bilirubin 1.1 H (0.2-1.0) mg/dL AST 27 (10-42) IU/L ALT 14 (10-60) IU/L Alkaline Phosphatase 45 (42-121) IU/L Total Protein 7.0 (6.7-8.2) g/dl Albumin 3.8 (3.2-5.5) g/dl Globulin 3.2 Albumin/Globulin Ratio 1.19 Meds: Medications Discontinued Medications Generic Name Dose Route Start Last Admin Trade Name Freq PRN Reason Stop Dose Admin Sodium Chloride 1,000 mls @ 999 mls/hr 02/15/19 21:48 02/15/19 22:00 Normal Saline IV 02/15/19 22:48 999 mls/hr .BOLUS ONE Administration Metoclopramide HCl 10 mg 02/15/19 22:15 02/15/19 22:19 Reglan IVPUSH 02/15/19 22:16 10 mg ONETIME ONE Administration Ondansetron HCl 4 mg 02/15/19 21:48 02/15/19 22:00 Zofran IV 02/15/19 21:49 4 mg ONETIME ONE Administration Sodium Chloride 10 ml 02/15/19 21:48 02/15/19 22:00 Saline Flush FLUSH 10 ml ASDIRECTED PRN Administration Keep Vein Open Departure - Departure Time of Disposition: 23:07 Disposition: Home, Self-Care 01 Condition: Fair Clinical Impression: Vomiting during Qualifiers: Weeks of gestation: 8 weeks Qualified Code(s): Z3A.08 - 8 weeks gestation of Diabetes mellitus type I Qualifiers: Diabetes mellitus complication status: without complication Qualified Code(s): E10.9 - Type 1 diabetes mellitus without complications - Discharge Information *PRESCRIPTION DRUG MONITORING PROGRAM REVIEWED*: No *COPY OF PRESCRIPTION DRUG MONITORING REPORT IN PATIENT GRISEL: No Instructions: First Trimester of , [id number], Hyperemesis Gravidarum, , The Father's Role, Type 1 or Type 2 Diabetes Mellitus During , Self Care, Morning Sickness, [id number], First Trimester of Forms: ED Department Discharge Additional Instructions: Follow up with your primary care facility if any further problems - My Orders Last 24 Hours: My Active Orders 02/15/19 21:48 Peripheral IV Insertion Adult [OM.PC] Stat 02/15/19 21:49 Peripheral IV Care [RC] . DIRECTED - Assessment/Plan Last 24 Hours: My Active Orders 02/15/19 21:48 Peripheral IV Insertion Adult [OM.PC] Stat 02/15/19 21:49 Peripheral IV Care [RC] . DIRECTED
[2019-02-15 23:13] VITALS: BP 112/70
== END 2019-02-15 23:17 | disposition home or self-care (01) ==
LOC: DL.ED 21:23
DX: O21.9 Vomiting of pregnancy, unspecified (principal); O24.011 Pre-existing type 1 diabetes mellitus, in pregnancy, first trimester; E10.9 Type 1 diabetes mellitus without complications; O99.281 Endocrine, nutritional and metabolic diseases complicating pregnancy, first trimester; E03.9 Hypothyroidism, unspecified; Z79.899 Other long term (current) drug therapy; Z3A.08 8 weeks gestation of pregnancy; Z91.040 Latex allergy status
CPT/HCPCS: 36415; 80053; 85025; 96361; 96374; 96375; 99284; J2405; J2765; J7030

== ENCOUNTER 2019-02-21 18:38 | Emergency (ER) | payer OTHER ==
[2019-02-21 18:49] VITALS: BP 115/78
[2019-02-21] MEDS ORDERED: Sodium Chloride 0.9% 1,000 ML IV ONE ×2 (19:08→20:22)
[2019-02-21] MEDS ORDERED: Metoclopramide 10 MG/2 ML SDV IVPUSH ONE (19:11)
--- NOTE | 2019-02-21 19:12 | EDM.PDOC ---
ED HPI GENERAL MEDICAL PROBLEM - General Chief Complaint: Gastrointestinal Problem Stated Complaint: says she needs fluids- Time Seen by Provider: 02/21/19 19:12 Source of Information: Reports: Patient History Limitations: Reports: No Limitations - History of Present Illness INITIAL COMMENTS - FREE TEXT/NARRATIVE: 9 weeks , with nausea and vomiting. LMP 12/20/18. IDDM. Unable to keep any thing down past 24 hours has tried unisom and zofran without relief. Able to sleep last night but vomiting frequently and dry heaves through out today. Blood sugars have been good today . notes hyperemesis throughout second . No urinary symptoms, No fever. Has seen OB, Normal ultrasound one week ago. - Related Data Allergies Allergy/AdvReac Type Severity Reaction Status Date / Time latex Allergy Rash Verified 02/21/19 18:51 Home Meds: Home Meds Insulin Aspart [NovoLOG] 35 - 45 units IMPLANT ASDIRECTED 10/29/16 [History] Levothyroxine [Synthroid] 100 mcg PO DAILY 12/18/16 [History] Ondansetron [Zofran ODT] 4 mg PO Q6H PRN 09/25/18 [History] PNV No.115/Iron Fumarate/FA [ 19 Chewable Tablet] 1 tab PO DAILY [History] Doxylamine Succinate [Unisom] 0.5 tab PO ASDIRECTED 02/15/19 [History] B6/FA/B12/Co Q10/Herb No.225 [Healthy Heart Complex Tablet] 1 tab PO DAILY 02/21 [History] Past Medical History HEENT History: Reports: Impaired Vision, Sinusitis, Other (See Below) Other HEENT History: WEARS CORRECTIVE LENS Cardiovascular History: Reports: None Respiratory History: Reports: None Gastrointestinal History: Reports: Chronic Constipation, Chronic Diarrhea, GERD , Other (See Below) Other Gastrointestinal History: gastroproesis Genitourinary History: Reports: UTI, Recurrent 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: Musculoskeletal History: Reports: Back Pain, Chronic, Other (See Below) Other Musculoskeletal History: HAMMERTOE Neurological History: Reports: Migraines Psychiatric History: Reports: Anxiety Endocrine/Metabolic History: Reports: Diabetes, Type I, Hypothyroidism, Other ( See Below) Other Endocrine/Metabolic History: IRAIS'S THYRIODITITIS Hematologic History: Reports: None Immunologic History: Reports: None Oncologic (Cancer) History: Reports: None Dermatologic History: Reports: None - Infectious Disease History Infectious Disease History: Reports: Chicken Pox Other Infectious Disease History: fifth disease - Past Surgical History Head Surgeries/Procedures: Reports: None HEENT Surgical History: Reports: None Cardiovascular Surgical History: Reports: None Respiratory Surgical History: Reports: None GI Surgical History: Reports: None Female Surgical History: Reports: Section Endocrine Surgical History: Reports: None Neurological Surgical History: Reports: None Musculoskeletal Surgical History: Reports: None Oncologic Surgical History: Reports: None Dermatological Surgical History: Reports: None Social & Family History - Family History Family Medical History: Noncontributory - Tobacco Use Smoking Status *Q: Never Smoker - Caffeine Use Caffeine Use: Reports: None Caffeine Use Comment: 4 cups coffee daily. soda prn - Recreational Drug Use Recreational Drug Use: No - Living Situation & Occupation Living situation: Reports: with Family Occupation: Employed ED ROS GENERAL - Review of Systems Review Of Systems: ROS reveals no pertinent complaints other than HPI. ED EXAM - Physical Exam Exam: See Below Exam Limited By: No Limitations General Appearance: Alert, Mild Distress Eye Exam: Bilateral Eye: EOMI Ears: Normal External Exam Nose: Normal Inspection Throat/Mouth: Other (dry mucus membranes) Head: Atraumatic, Normocephalic Neck: Full Range of Motion Respiratory/Chest: No Respiratory Distress, Lungs Clear Cardiovascular: Normal Peripheral Pulses, Regular Rate, Rhythm GI/Abdominal Exam: Normal Bowel Sounds Back Exam: Full Range of Motion Extremities: Normal Inspection Neurological: Alert, Oriented, Normal Cognition, Normal Gait Skin Exam: Warm, Dry, Intact, Pallor Course - Vital Signs Last Recorded V/S: Last Vital Signs Temp 96.9 F 02/21/19 18:47 Pulse 95 02/21/19 18:47 Resp 18 02/21/19 18:47 BP 115/78 02/21/19 18:47 Pulse Ox 100 02/21/19 18:47 - Orders/Labs/Meds Orders: Active Orders 24 hr Category Date Time Status Blood Glucose Check, Bedside [RC] ONETIME Care 02/21/19 19:08 Active Blood Glucose Check, Bedside [RC] ONETIME Care 02/21/19 21:03 Active CULTURE URINE [RM] Urgent Lab 02/21/19 21:14 Received Labs: Laboratory Tests 02/21/19 02/21/1919 Range/Units 19:00 19:25 19:25 WBC 7.3 (5.0-10.0) 10^3/uL RBC 4.93 (4.2-5.4) 10^6/uL Hgb 15.1 D (12.0-16.0) g/dL Hct 43.5 (37.0-47.0) % MCV 88.2 (80-100) fL MCH 30.6 (27.0-34.0) pg MCHC 34.7 (33.0-35.0) g/dL Plt Count 170 (150-450) 10^3/uL Neut % (Auto) 64.3 (42.2-75.2) % Lymph % (Auto) 27.1 (20.5-50.1) % Wells % (Auto) 8.0 (2-8) % Eos % (Auto) 0.5 L (1.0-3.0) % Baso % (Auto) 0.1 (0.0-1.0) % Sodium 137 (135-145) mmol/L Potassium 3.4 L (3.6-5.0) mmol/L Chloride 101 (101-111) mmol/L Carbon Dioxide 21.0 (21.0-31.0) mmol/L Anion Gap 18.4 BUN 12 (7-18) mg/dL Creatinine 0.5 L (0.6-1.3) mg/dL Est Cr Clr Drug Dosing 145.35 mL/min Estimated GFR (MDRD) > 60 BUN/Creatinine Ratio 24.00 Glucose 84 (74-105) mg/dL POC Glucose 79 (70-105) mg/dl Lactic Acid (0.5-2.2) mmol/L Calcium 10.4 H D (8.4-10.2) mg/dl Total Bilirubin 1.4 H (0.2-1.0) mg/dL AST 25 (10-42) IU/L ALT 19 (10-60) IU/L Alkaline Phosphatase 52 (42-121) IU/L Total Protein 8.0 (6.7-8.2) g/dl Albumin 4.7 (3.2-5.5) g/dl Globulin 3.3 Albumin/Globulin Ratio 1.42 Urine Color (YELLOW) Urine Appearance (CLEAR) Urine pH (5.0-9.0) Ur Specific [place] (1.005-1.030) Urine Protein (NEGATIVE) Urine Glucose (UA) (NEGATIVE) Urine Ketones (NEGATIVE) Urine Occult Blood (NEGATIVE) Urine Nitrite (NEGATIVE) Urine Bilirubin (NEGATIVE) Urine Urobilinogen (0.2-1.0) mg/dL Ur Leukocyte Esterase (NEGATIVE) Urine RBC /HPF Urine WBC (0-5/HPF) /HPF Ur Epithelial Cells (NOT SEEN) /HPF Urine Bacteria (0-FEW/HPF) /HPF Ketones Negative 02/21/19 02/21/19 02/21/19 Range/Units 19:25 21:12 21:14 WBC (5.0-10.0) 10^3/uL RBC (4.2-5.4) 10^6/uL Hgb (12.0-16.0) g/dL Hct (37.0-47.0) % MCV (80-100) fL MCH (27.0-34.0) pg MCHC (33.0-35.0) g/dL Plt Count (150-450) 10^3/uL Neut % (Auto) (42.2-75.2) % Lymph % (Auto) (20.5-50.1) % Wells % (Auto) (2-8) % Eos % (Auto) (1.0-3.0) % Baso % (Auto) (0.0-1.0) % Sodium (135-145) mmol/L Potassium (3.6-5.0) mmol/L Chloride (101-111) mmol/L Carbon Dioxide (21.0-31.0) mmol/L Anion Gap BUN (7-18) mg/dL Creatinine (0.6-1.3) mg/dL Est Cr Clr Drug Dosing mL/min Estimated GFR (MDRD) BUN/Creatinine Ratio Glucose (74-105) mg/dL POC Glucose 89 (70-105) mg/dl Lactic Acid 1.8 (0.5-2.2) mmol/L Calcium (8.4-10.2) mg/dl Total Bilirubin (0.2-1.0) mg/dL AST (10-42) IU/L ALT (10-60) IU/L Alkaline Phosphatase (42-121) IU/L Total Protein (6.7-8.2) g/dl Albumin (3.2-5.5) g/dl Globulin Albumin/Globulin Ratio Urine Color Yellow (YELLOW) Urine Appearance Cloudy (CLEAR) Urine pH 8.5 (5.0-9.0) Ur Specific [place] 1.020 (1.005-1.030) Urine Protein 30 H (NEGATIVE) Urine Glucose (UA) Negative (NEGATIVE) Urine Ketones 80 H (NEGATIVE) Urine Occult Blood Trace-intact H (NEGATIVE) Urine Nitrite Negative (NEGATIVE) Urine Bilirubin Small H (NEGATIVE) Urine Urobilinogen 1.0 (0.2-1.0) mg/dL Ur Leukocyte Esterase Moderate H (NEGATIVE) Urine RBC 5-10 H /HPF Urine WBC 75-100 H (0-5/HPF) /HPF Ur Epithelial Cells Few (NOT SEEN) /HPF Urine Bacteria Many H (0-FEW/HPF) /HPF Ketones Meds: Medications Discontinued Medications Generic Name Dose Route Start Last Admin Trade Name Freq PRN Reason Stop Dose Admin Sodium Chloride 1,000 mls @ 999 mls/hr 02/21/19 19:08 02/21/19 19:22 Normal Saline IV 02/21/19 20:08 999 mls/hr .BOLUS ONE Administration Sodium Chloride 1,000 mls @ 999 mls/hr 02/21/19 20:22 02/21/19 20:23 Normal Saline IV 02/21/19 21:22 999 mls/hr .BOLUS ONE Administration Metoclopramide HCl 10 mg 02/21/19 19:11 02/21/19 19:20 Reglan IVPUSH 02/21/19 19:12 10 mg ONETIME ONE Administration - Re-Assessments/Exams Free Text/Narrative Re-Assessment/Exam: 02/22/19 02:36 Nausea improved following reglan, Resting. Departure - Departure Time of Disposition: 21:50 Disposition: Home, Self-Care 01 Condition: Good Clinical Impression: First trimester , Hyperemesis Diabetes mellitus type I Qualifiers: Diabetes mellitus complication status: without complication Qualified Code(s): E10.9 - Type 1 diabetes mellitus without complications - Discharge Information *PRESCRIPTION DRUG MONITORING PROGRAM REVIEWED*: No *COPY OF PRESCRIPTION DRUG MONITORING REPORT IN PATIENT GRISEL: No Instructions: Eating Plan for Hyperemesis Gravidarum Referrals: PCP,None [Primary Care Provider] - Forms: ED Department Discharge Additional Instructions: rest light diet advance as tolerated continue home medications follow up with Dr Garza trial meclizine 25mg every 6 hours as needed for nausea - My Orders Last 24 Hours: My Active Orders 02/21/19 19:08 Blood Glucose Check, Bedside [RC] ONETIME 02/21/19 21:03 Blood Glucose Check, Bedside [RC] ONETIME 02/21/19 21:14 CULTURE URINE [RM] Urgent - Assessment/Plan Last 24 Hours: My Active Orders 02/21/19 19:08 Blood Glucose Check, Bedside [RC] ONETIME 02/21/19 21:03 Blood Glucose Check, Bedside [RC] ONETIME 02/21/19 21:14 CULTURE URINE [RM] Urgent
[2019-02-21 20:40] LABS: ANION GAP 18.4; CHLORIDE,CL 101 mmol/L (101-111); SODIUM,NA 137 mmol/L (135-145)
== END 2019-02-21 21:50 | disposition home or self-care (01) ==
LOC: DL.ED 18:38
DX: O21.9 Vomiting of pregnancy, unspecified (principal); O99.281 Endocrine, nutritional and metabolic diseases complicating pregnancy, first trimester; E10.9 Type 1 diabetes mellitus without complications; Z3A.09 9 weeks gestation of pregnancy; Z91.040 Latex allergy status; Z79.4 Long term (current) use of insulin
CPT/HCPCS: 36415; 80053; 81001; 82009; 82962; 83605; 85025; 87086; 96361; 96374; 99284; J2765; J7030

== ENCOUNTER 2019-03-07 22:56 | Observation (INO) | payer OTHER ==
[2019-03-07] MEDS ORDERED: Metoclopramide 10 MG/2 ML SDV IVPUSH ONE (23:11)
[2019-03-07] MEDS ORDERED: Sodium Chloride 0.9% 1,000 ML IV ONE (23:15)
--- NOTE | 2019-03-07 23:16 | EDM.PDOC ---
ED HPI GENERAL MEDICAL PROBLEM - General Chief Complaint: Gastrointestinal Problem Stated Complaint: SICK 11 WEEKS PREG [id number] - Related Data Allergies Allergy/AdvReac Type Severity Reaction Status Date / Time latex Allergy Rash Verified 02/21/19 18:51 Home Meds: Home Meds Insulin Aspart [NovoLOG] 35 - 45 units IMPLANT ASDIRECTED 10/29/16 [History] Levothyroxine [Synthroid] 100 mcg PO DAILY 12/18/16 [History] Ondansetron [Zofran ODT] 4 mg PO Q6H PRN 09/25/18 [History] PNV No.115/Iron Fumarate/FA [ 19 Chewable Tablet] 1 tab PO DAILY [History] Doxylamine Succinate [Unisom] 0.5 tab PO ASDIRECTED 02/15/19 [History] B6/FA/B12/Co Q10/Herb No.225 [Healthy Heart Complex Tablet] 1 tab PO DAILY 02/21 [History] Past Medical History HEENT History: Reports: Impaired Vision, Sinusitis, Other (See Below) Other HEENT History: WEARS CORRECTIVE LENS Cardiovascular History: Reports: None Respiratory History: Reports: None Gastrointestinal History: Reports: Chronic Constipation, Chronic Diarrhea, GERD , Other (See Below) Other Gastrointestinal History: gastroproesis Genitourinary History: Reports: UTI, Recurrent 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: Musculoskeletal History: Reports: Back Pain, Chronic, Other (See Below) Other Musculoskeletal History: HAMMERTOE Neurological History: Reports: Migraines Psychiatric History: Reports: Anxiety Endocrine/Metabolic History: Reports: Diabetes, Type I, Hypothyroidism, Other ( See Below) Other Endocrine/Metabolic History: IRAIS'S THYRIODITITIS Hematologic History: Reports: None Immunologic History: Reports: None Oncologic (Cancer) History: Reports: None Dermatologic History: Reports: None - Infectious Disease History Infectious Disease History: Reports: Chicken Pox Other Infectious Disease History: fifth disease - Past Surgical History Head Surgeries/Procedures: Reports: None HEENT Surgical History: Reports: None Cardiovascular Surgical History: Reports: None Respiratory Surgical History: Reports: None GI Surgical History: Reports: None Female Surgical History: Reports: Section Endocrine Surgical History: Reports: None Neurological Surgical History: Reports: None Musculoskeletal Surgical History: Reports: None Oncologic Surgical History: Reports: None Dermatological Surgical History: Reports: None Social & Family History - Family History Family Medical History: Noncontributory - Caffeine Use Caffeine Use: Reports: None Caffeine Use Comment: 4 cups coffee daily. soda prn - Living Situation & Occupation Living situation: Reports: with Family Occupation: Employed Course - Orders/Labs/Meds Orders: Active Orders 24 hr Category Date Time Status Glucose [Blood Glucose Check, Bedside] [RC] ONETIME Care 03/07/19 23:09 Ordered AMYLASE [CHEM] Stat Lab 03/07/19 23:09 Ordered CBC WITH AUTO DIFF [HEME] Stat Lab 03/07/19 23:09 Ordered COMPREHENSIVE METABOLIC PN,CMP [CHEM] Stat Lab 03/07/19 23:09 Ordered KETONES,BLOOD [CHEM] Stat Lab 03/07/19 23:09 Ordered LACTIC ACID [CHEM] Stat Lab 03/07/19 23:09 Ordered LIPASE [CHEM] Stat Lab 03/07/19 23:09 Ordered UA RFX SHERRI AND CULT IF INDIC [URIN] Urgent Lab 03/07/19 23:09 Ordered Sodium Chloride 0.9% [Normal Saline] 1,000 ml Med 03/07/19 23:15 Ordered IV .BOLUS Medication Orders Sodium Chloride (Normal Saline) 1,000 mls @ 999 mls/hr IV .BOLUS ONE Stop: 03/08/19 00:15 Meds: Medications Generic Name Dose Route Start Last Admin Trade Name Freq PRN Reason Stop Dose Admin Sodium Chloride 1,000 mls @ 999 mls/hr 03/07/19 23:15 Normal Saline IV 03/08/19 00:15 .BOLUS ONE Discontinued Medications Generic Name Dose Route Start Last Admin Trade Name Freq PRN Reason Stop Dose Admin Metoclopramide HCl 10 mg 03/07/19 23:11 Reglan IVPUSH 03/07/19 23:12 ONETIME ONE Departure - Discharge Information - My Orders Last 24 Hours: My Active Orders 03/07/19 23:09 Glucose [Blood Glucose Check, Bedside] [RC] ONETIME AMYLASE [CHEM] Stat CBC WITH AUTO DIFF [HEME] Stat COMPREHENSIVE METABOLIC PN,CMP [CHEM] Stat KETONES,BLOOD [CHEM] Stat LACTIC ACID [CHEM] Stat LIPASE [CHEM] Stat UA RFX SHERRI AND CULT IF INDIC [URIN] Urgent 03/07/19 23:15 Sodium Chloride 0.9% [Normal Saline] 1,000 ml IV .BOLUS - Assessment/Plan Last 24 Hours: My Active Orders 03/07/19 23:09 Glucose [Blood Glucose Check, Bedside] [RC] ONETIME AMYLASE [CHEM] Stat CBC WITH AUTO DIFF [HEME] Stat COMPREHENSIVE METABOLIC PN,CMP [CHEM] Stat KETONES,BLOOD [CHEM] Stat LACTIC ACID [CHEM] Stat LIPASE [CHEM] Stat UA RFX SHERRI AND CULT IF INDIC [URIN] Urgent 03/07/19 23:15 Sodium Chloride 0.9% [Normal Saline] 1,000 ml IV .BOLUS
--- NOTE | 2019-03-07 23:24 | EDM.PDOC ---
ED HPI GENERAL MEDICAL PROBLEM - General Chief Complaint: Gastrointestinal Problem Stated Complaint: SICK 11 WEEKS PREG [id number] Time Seen by Provider: 03/07/19 23:17 Source of Information: Reports: Patient History Limitations: Reports: No Limitations - History of Present Illness INITIAL COMMENTS - FREE TEXT/NARRATIVE: ED with c/o Nausea and vomiting. 11 weeks . In clinic today for same received regaln and IVF. Frequent vomiting small amounts, cofee ground emesis. Stated was same type emesis when in clinic earlier. Blood sugars 110-130. Chills and sweats, no known fever. - Related Data Allergies Allergy/AdvReac Type Severity Reaction Status Date / Time latex Allergy Rash Verified 02/21/19 18:51 Home Meds: Home Meds Insulin Aspart [NovoLOG] 35 - 45 units IMPLANT ASDIRECTED 10/29/16 [History] Levothyroxine [Synthroid] 100 mcg PO DAILY 12/18/16 [History] Ondansetron [Zofran ODT] 4 mg PO Q6H PRN 09/25/18 [History] PNV No.115/Iron Fumarate/FA [ 19 Chewable Tablet] 1 tab PO DAILY [History] Doxylamine Succinate [Unisom] 0.5 tab PO ASDIRECTED 02/15/19 [History] B6/FA/B12/Co Q10/Herb No.225 [Healthy Heart Complex Tablet] 1 tab PO DAILY 02/21 [History] Past Medical History HEENT History: Reports: Impaired Vision, Sinusitis, Other (See Below) Other HEENT History: WEARS CORRECTIVE LENS Cardiovascular History: Reports: None Respiratory History: Reports: None Gastrointestinal History: Reports: Chronic Constipation, Chronic Diarrhea, GERD , Other (See Below) Other Gastrointestinal History: gastroproesis Genitourinary History: Reports: UTI, 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: Musculoskeletal History: Reports: Back Pain, Chronic, Other (See Below) Other Musculoskeletal History: HAMMERTOE Neurological History: Reports: Migraines Psychiatric History: Reports: Anxiety Endocrine/Metabolic History: Reports: Diabetes, Type I, Hypothyroidism, Other ( See Below) Other Endocrine/Metabolic History: IRAIS'S THYRIODITITIS Hematologic History: Reports: None Immunologic History: Reports: None Oncologic (Cancer) History: Reports: None Dermatologic History: Reports: None - Infectious Disease History Infectious Disease History: Reports: Chicken Pox Other Infectious Disease History: fifth disease - Past Surgical History Head Surgeries/Procedures: Reports: None HEENT Surgical History: Reports: None Cardiovascular Surgical History: Reports: None Respiratory Surgical History: Reports: None GI Surgical History: Reports: None Female Surgical History: Reports: Section Endocrine Surgical History: Reports: None Neurological Surgical History: Reports: None Musculoskeletal Surgical History: Reports: None Oncologic Surgical History: Reports: None Dermatological Surgical History: Reports: None Social & Family History - Family History Family Medical History: Noncontributory - Caffeine Use Caffeine Use: Reports: None Caffeine Use Comment: 4 cups coffee daily. soda prn - Living Situation & Occupation Living situation: Reports: with Family Occupation: Employed ED ROS GENERAL - Review of Systems Review Of Systems: ROS reveals no pertinent complaints other than HPI. ED EXAM, GI/ABD - Physical Exam Exam: See Below Exam Limited By: No Limitations General Appearance: Alert, Moderate Distress Eyes: Bilateral: EOMI Ears: Normal External Exam, Hearing Grossly Normal Nose: Normal Inspection Throat/Mouth: Normal Inspection Head: Atraumatic, Normocephalic Neck: Normal Inspection Respiratory/Chest: No Respiratory Distress, Lungs Clear Cardiovascular: Normal Peripheral Pulses, Regular Rate, Rhythm GI/Abdominal Exam: Normal Bowel Sounds, Soft, Tender (epigastric) (Female) Exam: Other (FHT 170's) Back Exam: Normal Inspection Extremities: Normal Inspection. No: Pedal Edema Neurological: Alert, Oriented, Normal Cognition Psychiatric: Normal Affect, Normal Mood Skin Exam: Warm, Dry, Intact, Other (face flushed) Course - Vital Signs Last Recorded V/S: Last Vital Signs Temp 97.1 F 03/07/19 23:20 Pulse 84 03/07/19 23:20 Resp 18 03/07/19 23:20 BP 148/89 H 03/07/19 23:20 Pulse Ox 100 03/07/19 23:20 - Orders/Labs/Meds Orders: Active Orders 24 hr Category Date Time Status Glucose [Blood Glucose Check, Bedside] [RC] ONETIME Care 03/07/19 23:09 Active UA RFX SHERRI AND CULT IF INDIC [URIN] Urgent Lab 03/07/19 23:09 Ordered Labs: Laboratory Tests 03/07/19 03/07/19 03/07/19 Range/Units 23:10 23:10 23:10 WBC 10.3 H (5.0-10.0) 10^3/uL RBC 4.09 L (4.2-5.4) 10^6/uL Hgb 12.7 D (12.0-16.0) g/dL Hct 36.2 L (37.0-47.0) % MCV 88.5 (80-100) fL MCH 31.1 (27.0-34.0) pg MCHC 35.1 H (33.0-35.0) g/dL Plt Count 241 (150-450) 10^3/uL Neut % (Auto) 79.4 H (42.2-75.2) % Lymph % (Auto) 15.5 L (20.5-50.1) % Castro % (Auto) 4.9 (2-8) % Eos % (Auto) 0.1 L (1.0-3.0) % Baso % (Auto) 0.1 (0.0-1.0) % Sodium 135 (135-145) mmol/L Potassium 3.7 (3.6-5.0) mmol/L Chloride 106 (101-111) mmol/L Carbon Dioxide 19.0 L (21.0-31.0) mmol/L Anion Gap 13.7 BUN 7 (7-18) mg/dL Creatinine 0.4 L (0.6-1.3) mg/dL Est Cr Clr Drug Dosing TNP Estimated GFR (MDRD) > 60 BUN/Creatinine Ratio 17.50 Glucose 115 H (74-105) mg/dL POC Glucose (70-105) mg/dl Lactic Acid 1.2 (0.5-2.2) mmol/L Calcium 8.5 D (8.4-10.2) mg/dl Total Bilirubin 0.7 (0.2-1.0) mg/dL AST 22 (10-42) IU/L ALT 16 (10-60) IU/L Alkaline Phosphatase 43 (42-121) IU/L Total Protein 6.9 (6.7-8.2) g/dl Albumin 3.9 (3.2-5.5) g/dl Globulin 3.0 Albumin/Globulin Ratio 1.30 Amylase 32 (28-100) U/L Lipase 18 L (22-51) U/L Ketones Negative 03/07/19 Range/Units 23:16 WBC (5.0-10.0) 10^3/uL RBC (4.2-5.4) 10^6/uL Hgb (12.0-16.0) g/dL Hct (37.0-47.0) % MCV (80-100) fL MCH (27.0-34.0) pg MCHC (33.0-35.0) g/dL Plt Count (150-450) 10^3/uL Neut % (Auto) (42.2-75.2) % Lymph % (Auto) (20.5-50.1) % Castro % (Auto) (2-8) % Eos % (Auto) (1.0-3.0) % Baso % (Auto) (0.0-1.0) % Sodium (135-145) mmol/L Potassium (3.6-5.0) mmol/L Chloride (101-111) mmol/L Carbon Dioxide (21.0-31.0) mmol/L Anion Gap BUN (7-18) mg/dL Creatinine (0.6-1.3) mg/dL Est Cr Clr Drug Dosing Estimated GFR (MDRD) BUN/Creatinine Ratio Glucose (74-105) mg/dL POC Glucose 119 H (70-105) mg/dl Lactic Acid (0.5-2.2) mmol/L Calcium (8.4-10.2) mg/dl Total Bilirubin (0.2-1.0) mg/dL AST (10-42) IU/L ALT (10-60) IU/L Alkaline Phosphatase (42-121) IU/L Total Protein (6.7-8.2) g/dl Albumin (3.2-5.5) g/dl Globulin Albumin/Globulin Ratio Amylase (28-100) U/L Lipase (22-51) U/L Ketones Meds: Medications Discontinued Medications Generic Name Dose Route Start Last Admin Trade Name Freq PRN Reason Stop Dose Admin Famotidine 20 mg 03/07/19 23:49 03/07/19 23:55 Pepcid IVPUSH 03/07/19 23:50 20 mg ONETIME ONE Administration Sodium Chloride 1,000 mls @ 999 mls/hr 03/07/19 23:15 03/07/19 23:25 Normal Saline IV 03/08/19 00:15 999 mls/hr .BOLUS ONE Administration Metoclopramide HCl 10 mg 03/07/19 23:11 03/07/19 23:27 Reglan IVPUSH 03/07/19 23:12 10 mg ONETIME ONE Administration Ondansetron HCl 4 mg 03/07/19 23:48 03/07/19 23:52 Zofran IV 03/07/19 23:49 4 mg ONETIME ONE Administration Departure - Departure Time of Disposition: 00:21 Disposition: Refer to Observation Condition: Fair Clinical Impression: Hyperemesis gravidarum, Hematemesis with nausea, First trimester Diabetes mellitus type I Qualifiers: Diabetes mellitus complication status: without complication Qualified Code(s): E10.9 - Type 1 diabetes mellitus without complications - Discharge Information - My Orders Last 24 Hours: My Active Orders 03/07/19 23:09 Glucose [Blood Glucose Check, Bedside] [RC] ONETIME UA RFX SHERRI AND CULT IF INDIC [URIN] Urgent - Assessment/Plan Last 24 Hours: My Active Orders 03/07/19 23:09 Glucose [Blood Glucose Check, Bedside] [RC] ONETIME UA RFX SHERRI AND CULT IF INDIC [URIN] Urgent
[2019-03-07 23:36] LABS: ANION GAP 13.7; CHLORIDE,CL 106 mmol/L (101-111); SODIUM,NA 135 mmol/L (135-145)
[2019-03-07] MEDS ORDERED: Ondansetron 4 MG/2 ML SDV IV ONE (23:48)
[2019-03-07] MEDS ORDERED: Famotidine 20 MG/2 ML SDV IVPUSH ONE (23:49)
[2019-03-08] MEDS ORDERED: Sodium Chloride 0.9% 1,000 ML IV ONE ×2 (01:04→20:04)
--- NOTE | 2019-03-08 02:12 | PCM.LDHP ---
<Wandy Wynne - Last Filed: 03/08/19 02:03> L&D History of Present Illness - General Date of Service: 03/08/19 Admit Problem/Dx: Admission Diagnosis/Problem Admission Diagnosis/Problem 03/08/19 02:04 Nausea and vomiting in Source of Information: Patient - History of Present Illness Introduction:: Patient is a 33 yo F at 11 weeks gestation who presented to the ER for nausea and vomiting. She has had nausea for the past month with occasional vomiting. Over the past 24 hours, she had not been able to keep anything down. She has vomited at least 20 times. Denies any abdominal pain or diarrhea. Denies eating any different foods or out at restaurants. She has type 1 diabetes and has an insulin pump along with a continuous glucose monitor. Her sugars have been running around 110-130 over the last 24 hours. She also has hypothyroidism and is on 100 mcg synthroid. In the ER, she was given IV pepcid, reglan, and zofran along with 1 liter bolus of normal saline but continued to feel nauseous. Labs showed WBC 10.3 but was otherwise unremarkable. Denies - Related Data Allergies/Adverse Reactions: Allergies Allergy/AdvReac Type Severity Reaction Status Date / Time latex Allergy Rash Verified 03/08/19 00:54 Home Medications: Home Meds Insulin Aspart [NovoLOG] 35 - 45 units IMPLANT ASDIRECTED 10/29/16 [History] Levothyroxine [Synthroid] 100 mcg PO DAILY 12/18/16 [History] PNV No.115/Iron Fumarate/FA [ 19 Chewable Tablet] 1 tab PO DAILY [History] B6/FA/B12/Co Q10/Herb No.225 [Healthy Heart Complex Tablet] 1 tab PO DAILY 02/21 [History] Bisacodyl [Dulcolax] 10 mg RECTAL BID PRN supp 03/11/19 [Rx] Famotidine [Pepcid] 20 mg PO BID #60 tablet 03/11/19 [Rx] Potassium Chloride [Klor-Con 10] 10 meq PO TIDMEALS #60 tab.er 03/11/19 [Rx] Prochlorperazine [Compro] 25 mg RECTAL Q12H PRN #20 supp 03/11/19 [Rx] Past Medical History HEENT History: Reports: Impaired Vision, Sinusitis, Other (See Below) Other HEENT History: WEARS CORRECTIVE LENS Cardiovascular History: Reports: None Respiratory History: Reports: None Gastrointestinal History: Reports: Chronic Constipation, Chronic Diarrhea, GERD , Other (See Below) Other Gastrointestinal History: gastroproesis Genitourinary History: Reports: UTI, Recurrent 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: Musculoskeletal History: Reports: Back Pain, Chronic, Other (See Below) Other Musculoskeletal History: HAMMERT[place] Neurological History: Reports: Migraines Psychiatric History: Reports: Anxiety Endocrine/Metabolic History: Reports: Diabetes, Type I, Hypothyroidism, Other ( See Below) Other Endocrine/Metabolic History: IRAIS'S THYRIODITITIS Hematologic History: Reports: None Immunologic History: Reports: None Oncologic (Cancer) History: Reports: None Dermatologic History: Reports: None - Infectious Disease History Infectious Disease History: Reports: Chicken Pox Other Infectious Disease History: fifth disease - Past Surgical History Head Surgeries/Procedures: Reports: None HEENT Surgical History: Reports: None Cardiovascular Surgical History: Reports: None Respiratory Surgical History: Reports: None GI Surgical History: Reports: None Female Surgical History: Reports: Section Endocrine Surgical History: Reports: None Neurological Surgical History: Reports: None Musculoskeletal Surgical History: Reports: None Oncologic Surgical History: Reports: None Dermatological Surgical History: Reports: None Social & Family History - Family History Family Medical History: Noncontributory - Tobacco Use Smoking Status *Q: Never Smoker Second Hand Smoke Exposure: No - Caffeine Use Caffeine Use: Reports: None Caffeine Use Comment: 4 cups coffee daily. soda prn - Recreational Drug Use Recreational Drug Use: No - Living Situation & Occupation Living situation: Reports: with Family Occupation: Employed H&P Review of Systems - Review of Systems: Review Of Systems: See Below General: Reports: Fatigue, Decreased Appetite. Denies: Fever, Chills HEENT: Reports: No Symptoms Pulmonary: Reports: No Symptoms Cardiovascular: Reports: No Symptoms Gastrointestinal: Reports: Anorexia, Decreased Appetite, Nausea, Vomiting. Denies: Abdominal Pain, Diarrhea Genitourinary: Reports: No Symptoms Musculoskeletal: Reports: No Symptoms Skin: Reports: No Symptoms Neurological: Reports: No Symptoms Hematologic/Lymphatic: Reports: No Symptoms L&D Exam - Exam Exam: See Below - Vital Signs Vital Signs: Last Vital Signs Temp 97.6 F 03/08/19 00:20 Pulse 117 H 03/08/19 00:20 Resp 16 03/08/19 00:20 BP 131/75 03/08/19 00:20 Pulse Ox 100 03/08/19 00:20 Weight: 87.77 kg - OB Specific Heart Tones: Present Heart Tones per Min: 170 - Exam General: Alert, Oriented, Cooperative HEENT: Conjunctiva Clear, Mucosa Moist & [place], Pupils Equal Neck: Supple, Trachea Midline Lungs: Clear to Auscultation, Normal Respiratory Effort Cardiovascular: Regular Rate, Regular Rhythm, Normal S1, Normal S2 GI/Abdominal Exam: Normal Bowel Sounds, Soft, Non-Tender Extremities: No Pedal Edema Skin: Warm, Dry - Patient Data Lab Results Last 24 hrs: Laboratory Results - last 24 hr 03/07/19 03/07/19 03/07/19 Range/Units 23:10 23:10 23:10 WBC 10.3 H (5.0-10.0) 10^3/uL RBC 4.09 L (4.2-5.4) 10^6/uL Hgb 12.7 D (12.0-16.0) g/dL Hct 36.2 L (37.0-47.0) % MCV 88.5 (80-100) fL MCH 31.1 (27.0-34.0) pg MCHC 35.1 H (33.0-35.0) g/dL Plt Count 241 (150-450) 10^3/uL Neut % (Auto) 79.4 H (42.2-75.2) % Lymph % (Auto) 15.5 L (20.5-50.1) % [place] % (Auto) 4.9 (2-8) % Eos % (Auto) 0.1 L (1.0-3.0) % Baso % (Auto) 0.1 (0.0-1.0) % Sodium 135 (135-145) mmol/L Potassium 3.7 (3.6-5.0) mmol/L Chloride 106 (101-111) mmol/L Carbon Dioxide 19.0 L (21.0-31.0) mmol/L Anion Gap 13.7 BUN 7 (7-18) mg/dL Creatinine 0.4 L (0.6-1.3) mg/dL Est Cr Clr Drug Dosing TNP Estimated GFR (MDRD) > 60 BUN/Creatinine Ratio 17.50 Glucose 115 H (74-105) mg/dL POC Glucose (70-105) mg/dl Lactic Acid 1.2 (0.5-2.2) mmol/L Calcium 8.5 D (8.4-10.2) mg/dl Total Bilirubin 0.7 (0.2-1.0) mg/dL AST 22 (10-42) IU/L ALT 16 (10-60) IU/L Alkaline Phosphatase 43 (42-121) IU/L Total Protein 6.9 (6.7-8.2) g/dl Albumin 3.9 (3.2-5.5) g/dl Globulin 3.0 Albumin/Globulin Ratio 1.30 Amylase 32 (28-100) U/L Lipase 18 L (22-51) U/L Ketones Negative 03/07/19 Range/Units 23:16 WBC (5.0-10.0) 10^3/uL RBC (4.2-5.4) 10^6/uL Hgb (12.0-16.0) g/dL Hct (37.0-47.0) % MCV (80-100) fL MCH (27.0-34.0) pg MCHC (33.0-35.0) g/dL Plt Count (150-450) 10^3/uL Neut % (Auto) (42.2-75.2) % Lymph % (Auto) (20.5-50.1) % [place] % (Auto) (2-8) % Eos % (Auto) (1.0-3.0) % Baso % (Auto) (0.0-1.0) % Sodium (135-145) mmol/L Potassium (3.6-5.0) mmol/L Chloride (101-111) mmol/L Carbon Dioxide (21.0-31.0) mmol/L Anion Gap BUN (7-18) mg/dL Creatinine (0.6-1.3) mg/dL Est Cr Clr Drug Dosing Estimated GFR (MDRD) BUN/Creatinine Ratio Glucose (74-105) mg/dL POC Glucose 119 H (70-105) mg/dl Lactic Acid (0.5-2.2) mmol/L Calcium (8.4-10.2) mg/dl Total Bilirubin (0.2-1.0) mg/dL AST (10-42) IU/L ALT (10-60) IU/L Alkaline Phosphatase (42-121) IU/L Total Protein (6.7-8.2) g/dl Albumin (3.2-5.5) g/dl Globulin Albumin/Globulin Ratio Amylase (28-100) U/L Lipase (22-51) U/L Ketones Result Diagrams: 03/07/19 23:10 03/07/19 23:10 - Problem List (1) Diabetes mellitus type I SNOMED Code(s): 22041047 ICD Code: E10.9 - TYPE 1 DIABETES MELLITUS WITHOUT COMPLICATIONS Status: Acute Priority: High Qualifiers: Diabetes mellitus complication status: without complication Qualified Code( s): E10.9 - Type 1 diabetes mellitus without complications (2) First trimester SNOMED Code(s): 62992667 ICD Code: Z34.91 - ENCNTR FOR SUPRVSN OF NORMAL PREG, UNSP, FIRST TRIMESTER Status: Acute (3) Hyperemesis gravidarum SNOMED Code(s): 55216010 ICD Code: O21.0 - MILD HYPEREMESIS GRAVIDARUM Status: Acute Problem List Initiated/Reviewed/Updated: Yes Orders Last 24hrs: Active Orders 24 hr Category Date Time Status Glucose [Blood Glucose Check, Bedside] [RC] ONETIME Care 03/07/19 23:09 Active Vital Signs [RC] PER UNIT ROUTINE Care 03/08/19 02:01 Ordered Clear Liquid Diet [DIET] Diet 03/08/19 Breakfast Ordered Metoclopramide [Reglan] Med 03/08/19 01:58 Ordered 10 mg IVPUSH Q4H PRN Ondansetron [Zofran] Med 03/08/19 01:59 Ordered 4 mg IV Q4H PRN Sodium Chloride 0.9% @ 125 MLS/HR (1000ml) Med 03/08/19 02:00 Ordered Sodium Chloride 0.9% [Normal Saline] 1,000 ml IV ASDIRECTED Medication Orders Sodium Chloride (Normal Saline) 1,000 mls @ 125 mls/hr IV ASDIRECTED [facility] Metoclopramide HCl (Reglan) 10 mg IVPUSH Q4H PRN PRN Reason: Nausea/Vomiting Ondansetron HCl (Zofran) 4 mg IV Q4H PRN PRN Reason: Nausea/Vomiting Assessment/Plan Comment:: Patient given reglan, zofran, and pepcid in the ER with little improvement. Another 1 liter bolus of normal saline was given on the floor and maintenance fluids started after at 125 ml/hr. Will keep reglan and zofran available every 4 hours as needed. Will keep diet to clear liquids until nausea resolves then slowly advance diet. Blood sugars have been good so far and will continue to monitor with her continuous monitor. Do not plan on needing additional insulin as she does have an insulin pump. Will order synthroid for morning if tolerating liquids. She did have similar problems with her second . Will monitor overnight. Labs stable for now. <Tequila Chen D - Last Filed: 03/12/19 12:06> L&D History of Present Illness - General Admit Problem/Dx: Patient Status Order with Admit Dx/Problem 03/08/19 00:10 Patient Status [ADT] Routine Admission Diagnosis/Problem Admission Diagnosis/Problem Hyperemesis gravidarum L&D Exam - Vital Signs Vital Signs: Last Vital Signs Temp 98.6 F 03/10/19 19:30 Pulse 77 03/10/19 19:30 Resp 20 03/10/19 19:30 BP 108/63 03/10/19 19:30 Pulse Ox 100 03/10/19 19:30 - Patient Data Result Diagrams: 03/09/19 06:15 03/11/19 05:40 Assessment/Plan Comment:: Patient was personally seen and examined. I reviewed the noted above and agree with the assessment and plan. - Tequila Chen MD
[2019-03-08] MEDS: Sodium Chloride 0.9% 1,000 ML IV SCH ×4 (02:27→21:48)
[2019-03-08] MEDS: Ondansetron 4 MG/2 ML SDV IV PRN ×3 (07:09→16:24)
[2019-03-08] MEDS: Metoclopramide 10 MG/2 ML SDV IVPUSH PRN ×2 (07:35→11:19)
--- NOTE | 2019-03-08 08:09 | PCM.PN ---
<Wandy Wynne - Last Filed: 03/08/19 08:46> - General Info Date of Service: 03/08/19 Admission Dx/Problem (Free Text): Admission Diagnosis/Problem Admission Diagnosis/Problem 03/08/19 02:04 Nausea and vomiting in Subjective Update: Patient was able to rest well overnight. She did have one episode of vomiting this morning. She received zofran and reglan, the reglan seems to help more. She was able to urinate this morning. Her blood sugars have been running in the 110s. She denies any fever, chills, abdominal pain, or diarrhea. She is willing to try some bland food this morning. No other concerns today. - Review of Systems General: Denies: Fever, Chills Pulmonary: Denies: Shortness of Breath Cardiovascular: Denies: Chest Pain, Edema Gastrointestinal: Reports: Nausea, Vomiting. Denies: Abdominal Pain, Diarrhea - Patient Data Vitals - Most Recent: Last Vital Signs Temp 97.6 F 03/08/19 00:20 Pulse 117 H 03/08/19 00:20 Resp 16 03/08/19 00:20 BP 131/75 03/08/19 00:20 Pulse Ox 100 03/08/19 00:20 Weight - Most Recent: 87.77 kg I&O - Last 24 Hours: Intake & Output 03/07/19 03/08/19 03/08/19 22:59 06:59 14:59 Intake Total 1450 Output Total 150 600 Balance 1300 -600 Lab Results Last 24 Hours: Laboratory Results - last 24 hr 03/07/19 03/07/19 03/07/19 Range/Units 23:10 23:10 23:10 WBC 10.3 H (5.0-10.0) 10^3/uL RBC 4.09 L (4.2-5.4) 10^6/uL Hgb 12.7 D (12.0-16.0) g/dL Hct 36.2 L (37.0-47.0) % MCV 88.5 (80-100) fL MCH 31.1 (27.0-34.0) pg MCHC 35.1 H (33.0-35.0) g/dL Plt Count 241 (150-450) 10^3/uL Neut % (Auto) 79.4 H (42.2-75.2) % Lymph % (Auto) 15.5 L (20.5-50.1) % [place] % (Auto) 4.9 (2-8) % Eos % (Auto) 0.1 L (1.0-3.0) % Baso % (Auto) 0.1 (0.0-1.0) % Sodium 135 (135-145) mmol/L Potassium 3.7 (3.6-5.0) mmol/L Chloride 106 (101-111) mmol/L Carbon Dioxide 19.0 L (21.0-31.0) mmol/L Anion Gap 13.7 BUN 7 (7-18) mg/dL Creatinine 0.4 L (0.6-1.3) mg/dL Est Cr Clr Drug Dosing TNP Estimated GFR (MDRD) > 60 BUN/Creatinine Ratio 17.50 Glucose 115 H (74-105) mg/dL POC Glucose (70-105) mg/dl Lactic Acid 1.2 (0.5-2.2) mmol/L Calcium 8.5 D (8.4-10.2) mg/dl Total Bilirubin 0.7 (0.2-1.0) mg/dL AST 22 (10-42) IU/L ALT 16 (10-60) IU/L Alkaline Phosphatase 43 (42-121) IU/L Total Protein 6.9 (6.7-8.2) g/dl Albumin 3.9 (3.2-5.5) g/dl Globulin 3.0 Albumin/Globulin Ratio 1.30 Amylase 32 (28-100) U/L Lipase 18 L (22-51) U/L Ketones Negative 03/07/19 Range/Units 23:16 WBC (5.0-10.0) 10^3/uL RBC (4.2-5.4) 10^6/uL Hgb (12.0-16.0) g/dL Hct (37.0-47.0) % MCV (80-100) fL MCH (27.0-34.0) pg MCHC (33.0-35.0) g/dL Plt Count (150-450) 10^3/uL Neut % (Auto) (42.2-75.2) % Lymph % (Auto) (20.5-50.1) % [place] % (Auto) (2-8) % Eos % (Auto) (1.0-3.0) % Baso % (Auto) (0.0-1.0) % Sodium (135-145) mmol/L Potassium (3.6-5.0) mmol/L Chloride (101-111) mmol/L Carbon Dioxide (21.0-31.0) mmol/L Anion Gap BUN (7-18) mg/dL Creatinine (0.6-1.3) mg/dL Est Cr Clr Drug Dosing Estimated GFR (MDRD) BUN/Creatinine Ratio Glucose (74-105) mg/dL POC Glucose 119 H (70-105) mg/dl Lactic Acid (0.5-2.2) mmol/L Calcium (8.4-10.2) mg/dl Total Bilirubin (0.2-1.0) mg/dL AST (10-42) IU/L ALT (10-60) IU/L Alkaline Phosphatase (42-121) IU/L Total Protein (6.7-8.2) g/dl Albumin (3.2-5.5) g/dl Globulin Albumin/Globulin Ratio Amylase (28-100) U/L Lipase (22-51) U/L Ketones Med Orders - Current: Current Medications Sodium Chloride (Normal Saline) 1,000 mls @ 125 mls/hr IV ASDIRECTED [facility] Last Admin: 03/08/19 02:27 Dose: 125 mls/hr Metoclopramide HCl (Reglan) 10 mg IVPUSH Q4H PRN PRN Reason: Nausea/Vomiting Last Admin: 03/08/19 07:35 Dose: 10 mg Ondansetron HCl (Zofran) 4 mg IV Q4H PRN PRN Reason: Nausea/Vomiting Last Admin: 03/08/19 07:09 Dose: 4 mg Discontinued Medications Famotidine (Pepcid) 20 mg IVPUSH ONETIME ONE Stop: 03/07/19 23:50 Last Admin: 03/07/19 23:55 Dose: 20 mg Sodium Chloride (Normal Saline) 1,000 mls @ 999 mls/hr IV .BOLUS ONE Stop: 03/08/19 00:15 Last Admin: 03/07/19 23:25 Dose: 999 mls/hr Sodium Chloride (Normal Saline) 1,000 mls @ 999 mls/min IV BOLUS ONE Stop: 03/08/19 01:05 Last Admin: 03/08/19 01:14 Dose: 999 mls/min Metoclopramide HCl (Reglan) 10 mg IVPUSH ONETIME ONE Stop: 03/07/19 23:12 Last Admin: 03/07/19 23:27 Dose: 10 mg Ondansetron HCl (Zofran) 4 mg IV ONETIME ONE Stop: 03/07/19 23:49 Last Admin: 03/07/19 23:52 Dose: 4 mg - Exam General: Alert, Oriented, Cooperative HEENT: Pupils Equal, Pupils Reactive, Mucous Membr. Moist/[employer] Neck: Supple Lungs: Clear to Auscultation, Normal Respiratory Effort Cardiovascular: Regular Rate, Regular Rhythm GI/Abdominal Exam: Normal Bowel Sounds, Soft, Non-Tender Extremities: No Pedal Edema Skin: Warm, Dry - Problem List & Annotations (1) Diabetes mellitus type I SNOMED Code(s): 79696562 Code(s): E10.9 - TYPE 1 DIABETES MELLITUS WITHOUT COMPLICATIONS Status: Acute Priority: High Current Visit: Yes Qualifiers: Diabetes mellitus complication status: without complication Qualified Code( s): E10.9 - Type 1 diabetes mellitus without complications (2) First trimester SNOMED Code(s): 72707638 Code(s): Z34.91 - ENCNTR FOR SUPRVSN OF NORMAL PREG, UNSP, FIRST TRIMESTER Status: Acute Current Visit: Yes (3) Hyperemesis gravidarum SNOMED Code(s): 62445818 Code(s): O21.0 - MILD HYPEREMESIS GRAVIDARUM Status: Acute Current Visit : Yes - Problem List Review Problem List Initiated/Reviewed/Updated: Yes - My Orders Last 24 Hours: My Active Orders 03/08/19 00:10 Patient Status [ADT] Routine 03/08/19 01:58 Metoclopramide [Reglan] 10 mg IVPUSH Q4H PRN 03/08/19 01:59 Ondansetron [Zofran] 4 mg IV Q4H PRN 03/08/19 02:00 Sodium Chloride 0.9% [Normal Saline] 1,000 ml IV ASDIRECTED 03/08/19 02:01 Vital Signs [RC] PER UNIT ROUTINE 03/08/19 02:12 Code Status [Resuscitation Status] Routine 03/08/19 02:20 Up ad Omayra [RC] ASDIRECTED 03/08/19 Breakfast Advance Diet Instructions [DIET] Clear Liquid Diet [DIET] - Plan Plan:: Patient slowly improving. Frequency of vomiting has slowed down. Will slowly advance diet today with bland foods and hope she tolerates them. If doing well by the afternoon, could consider discharge home with anti nausea medications. Could consider giving thiamine as well. She is a well controlled diabetic so if needed, could consider steriods as well. She had been trying OTC options at home prior to admission. Will continue fluids for now until tolerating diet. Vitals remain stable. Will continue to monitor urine output. This note is being written on behalf of Dr. Garza, assessment and plan discussed with Dr. Garza. <Gail Nice - Last Filed: 03/08/19 21:46> - Patient Data Vitals - Most Recent: Last Vital Signs Temp 96.5 F 03/08/19 19:15 Pulse 80 03/08/19 19:15 Resp 20 03/08/19 19:15 BP 130/75 03/08/19 19:15 Pulse Ox 100 03/08/19 19:15 I&O - Last 24 Hours: Intake & Output 03/08/19 03/08/19 03/08/19 06:59 14:59 22:59 Intake Total 1450 1072 983 Output Total 150 1675 1075 Balance 1300 -603 -92 Lab Results Last 24 Hours: Laboratory Results - last 24 hr 03/07/19 03/07/19 03/07/19 Range/Units 23:10 23:10 23:10 WBC 10.3 H (5.0-10.0) 10^3/uL RBC 4.09 L (4.2-5.4) 10^6/uL Hgb 12.7 D (12.0-16.0) g/dL Hct 36.2 L (37.0-47.0) % MCV 88.5 (80-100) fL MCH 31.1 (27.0-34.0) pg MCHC 35.1 H (33.0-35.0) g/dL Plt Count 241 (150-450) 10^3/uL Neut % (Auto) 79.4 H (42.2-75.2) % Lymph % (Auto) 15.5 L (20.5-50.1) % [place] % (Auto) 4.9 (2-8) % Eos % (Auto) 0.1 L (1.0-3.0) % Baso % (Auto) 0.1 (0.0-1.0) % Sodium 135 (135-145) mmol/L Potassium 3.7 (3.6-5.0) mmol/L Chloride 106 (101-111) mmol/L Carbon Dioxide 19.0 L (21.0-31.0) mmol/L Anion Gap 13.7 BUN 7 (7-18) mg/dL Creatinine 0.4 L (0.6-1.3) mg/dL Est Cr Clr Drug Dosing TNP Estimated GFR (MDRD) > 60 BUN/Creatinine Ratio 17.50 Glucose 115 H (74-105) mg/dL POC Glucose (70-105) mg/dl Lactic Acid 1.2 (0.5-2.2) mmol/L Calcium 8.5 D (8.4-10.2) mg/dl Total Bilirubin 0.7 (0.2-1.0) mg/dL AST 22 (10-42) IU/L ALT 16 (10-60) IU/L Alkaline Phosphatase 43 (42-121) IU/L Total Protein 6.9 (6.7-8.2) g/dl Albumin 3.9 (3.2-5.5) g/dl Globulin 3.0 Albumin/Globulin Ratio 1.30 Amylase 32 (28-100) U/L Lipase 18 L (22-51) U/L Ketones Negative 03/07/ Range/Units 23:16 WBC (5.0-10.0) 10^3/uL RBC (4.2-5.4) 10^6/uL Hgb (12.0-16.0) g/dL Hct (37.0-47.0) % MCV (80-100) fL MCH (27.0-34.0) pg MCHC (33.0-35.0) g/dL Plt Count (150-450) 10^3/uL Neut % (Auto) (42.2-75.2) % Lymph % (Auto) (20.5-50.1) % [place] % (Auto) (2-8) % Eos % (Auto) (1.0-3.0) % Baso % (Auto) (0.0-1.0) % Sodium (135-145) mmol/L Potassium (3.6-5.0) mmol/L Chloride (101-111) mmol/L Carbon Dioxide (21.0-31.0) mmol/L Anion Gap BUN (7-18) mg/dL Creatinine (0.6-1.3) mg/dL Est Cr Clr Drug Dosing Estimated GFR (MDRD) BUN/Creatinine Ratio Glucose (74-105) mg/dL POC Glucose 119 H (70-105) mg/dl Lactic Acid (0.5-2.2) mmol/L Calcium (8.4-10.2) mg/dl Total Bilirubin (0.2-1.0) mg/dL AST (10-42) IU/L ALT (10-60) IU/L Alkaline Phosphatase (42-121) IU/L Total Protein (6.7-8.2) g/dl Albumin (3.2-5.5) g/dl Globulin Albumin/Globulin Ratio Amylase (28-100) U/L Lipase (22-51) U/L Ketones Med Orders - Current: Current Medications Bisacodyl (Dulcolax) 10 mg RECTAL BID PRN PRN Reason: Constipation Last Admin: 03/08/19 11:09 Dose: 10 mg Calcium Carbonate/Glycine (Tums) 1,000 mg PO Q6HR PRN PRN Reason: Heartburn Last Admin: 03/08/19 15:49 Dose: 1,000 mg Sodium Chloride (Normal Saline) 1,000 mls @ 999 drops/hr IV .BOLUS ONE Stop: 03/09/19 11:04 Last Admin: 03/08/19 20:07 Dose: 999 drops/hr Sodium Chloride (Normal Saline) 1,000 mls @ 250 mls/hr IV ASDIRECTED [facility] Methylprednisolone Sodium Succinate (Solu-Medrol) 16 mg IV Q8HR [facility] Last Admin: 03/08/19 21:42 Dose: 16 mg Metoclopramide HCl (Reglan) 10 mg IVPUSH TID [facility] Last Admin: 03/08/19 21:38 Dose: 10 mg Prochlorperazine Maleate (Compro) 25 mg RECTAL Q12H PRN PRN Reason: Nausea Promethazine HCl (Phenergan) 25 mg IM Q6H PRN PRN Reason: Nausea Last Admin: 03/08/19 19:51 Dose: 25 mg Thiamine HCl (Vitamin B-1) 100 mg IM DAILY [facility] Stop: 03/10/19 10:00 Discontinued Medications Famotidine (Pepcid) 20 mg IVPUSH ONETIME ONE Stop: 03/07/19 23:50 Last Admin: 03/07/19 23:55 Dose: 20 mg Sodium Chloride (Normal Saline) 1,000 mls @ 999 mls/hr IV .BOLUS ONE Stop: 03/08/19 00:15 Last Admin: 03/07/19 23:25 Dose: 999 mls/hr Sodium Chloride (Normal Saline) 1,000 mls @ 999 mls/min IV BOLUS ONE Stop: 03/08/19 01:05 Last Admin: 03/08/19 01:14 Dose: 999 mls/min Sodium Chloride (Normal Saline) 1,000 mls @ 200 mls/hr IV ASDIRECTED [facility] Last Admin: 03/08/19 16:28 Dose: 200 mls/hr Thiamine HCl 100 mg/ Sodium (Chloride) 101 mls @ 202 mls/hr IV ONETIME ONE Stop: 03/08/19 08:40 Last Admin: 03/08/19 10:11 Dose: 202 mls/hr Metoclopramide HCl (Reglan) 10 mg IVPUSH ONETIME ONE Stop: 03/07/19 23:12 Last Admin: 03/07/19 23:27 Dose: 10 mg Metoclopramide HCl (Reglan) 10 mg IVPUSH Q4H PRN PRN Reason: Nausea/Vomiting Last Admin: 03/08/19 11:19 Dose: 10 mg Ondansetron HCl (Zofran) 4 mg IV ONETIME ONE Stop: 03/07/19 23:49 Last Admin: 03/07/19 23:52 Dose: 4 mg Ondansetron HCl (Zofran) 4 mg IV Q4H PRN PRN Reason: Nausea/Vomiting Last Admin: 03/08/19 16:24 Dose: 4 mg Pantoprazole Sodium (Protonix Iv) 40 mg IVPUSH ONETIME ONE Stop: 03/08/19 19:28 Last Admin: 03/08/19 19:38 Dose: 40 mg - My Orders Last 24 Hours: My Active Orders 03/08/19 10:45 methylPREDNISolone Sod Succ [Solu-MEDROL] 16 mg IV Q8HR 03/08/19 10:48 Bisacodyl [Dulcolax] 10 mg RECTAL BID PRN 03/08/19 14:00 Metoclopramide [Reglan] 10 mg IVPUSH TID 03/08/19 15:10 Calcium Carbonate [Tums] 1,000 mg PO Q6HR PRN 03/08/19 19:35 Promethazine [Phenergan] 25 mg IM Q6H PRN 03/08/19 19:42 Abdomen 1V Upright [CR] Routine 03/08/19 20:04 Sodium Chloride 0.9% [Normal Saline] 1,000 ml IV .BOLUS 03/08/19 21:30 Sodium Chloride 0.9% [Normal Saline] 1,000 ml IV ASDIRECTED 03/08/19 21:31 Prochlorperazine [Compro] 25 mg RECTAL Q12H PRN 03/09/19 06:00 CBC W/O DIFF,HEMOGRAM [HEME] Routine CMP [COMPREHENSIVE METABOLIC PN,CMP] [CHEM] Routine MAGNESIUM [CHEM] Routine 03/09/19 09:00 Thiamine [Vitamin B-1] 100 mg IM DAILY - Plan Plan:: Patient seen and examined. Agree with note as scribed on behalf by Dr. Wynne, PGY-3. 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
[2019-03-08] MEDS ORDERED: Thiamine 100 MG in Sodium Chloride 0.9% 100 ML IV ONE (08:39)
[2019-03-08] MEDS ORDERED: Bisacodyl 10 MG Supp RECTAL PRN (10:48)
[2019-03-08] MEDS: methylPREDNISolone Sodium Succinate 40 MG/1 ML SDV IV SCH ×3 (11:08→21:42)
[2019-03-08] MEDS: Metoclopramide 10 MG/2 ML SDV IVPUSH SCH ×2 (14:31→21:38)
[2019-03-08] MEDS: Calcium Carbonate 500 MG Tab.Chew PO PRN (15:49)
[2019-03-08] MEDS ORDERED: Pantoprazole 40 MG Vial IVPUSH ONE (19:27)
[2019-03-08] MEDS: Promethazine 25 MG/ML SDV IM PRN (19:51)
[2019-03-08] MEDS: Prochlorperazine 25 MG Supp RECTAL PRN (22:01)
[2019-03-09] MEDS: Sodium Chloride 0.9% 1,000 ML IV SCH ×2 (01:42→05:45)
[2019-03-09] MEDS: Promethazine 25 MG/ML SDV IM PRN (03:54)
[2019-03-09] MEDS: Calcium Carbonate 500 MG Tab.Chew PO PRN ×2 (03:58→19:42)
[2019-03-09] MEDS: methylPREDNISolone Sodium Succinate 40 MG/1 ML SDV IV SCH ×3 (05:48→21:42)
[2019-03-09 06:43] LABS: ANION GAP 12.1; CHLORIDE,CL 108 mmol/L (101-111); SODIUM,NA 134 mmol/L (135-145)
[2019-03-09] MEDS ORDERED: Magnesium Sulfate/D5W 2 GM in Premix Bag 1 BAG IV ONE (07:36)
[2019-03-09] MEDS ORDERED: Magnesium Sulfate/Water 2 GM in Premix Bag 1 BAG IV ONE (08:15)
[2019-03-09] MEDS: Famotidine 20 MG/2 ML SDV IVPUSH SCH ×3 (08:22→20:38)
[2019-03-09] MEDS: Metoclopramide 10 MG/2 ML SDV IVPUSH SCH ×3 (08:27→20:42)
[2019-03-09] MEDS: D5 1/2 NS w/ 40 mEq/L KCl 1,000 ML IV SCH ×2 (08:31→13:32)
[2019-03-09] MEDS: Thiamine 200 MG/2 ML MDV IM SCH (08:59)
--- NOTE | 2019-03-09 09:40 | PN ---
DATE: 03/09/2019 Hospital day #3. SUBJECTIVE: 11 weeks and 2 day gestation high-risk patient admitted for dehydration due to hyperemesis gravidarum. See previous notes for full details. The patient has had a yasmany course yesterday and throughout the night. Yesterday morning, she seemed to be doing fairly well and having bile emesis rather than blood tinged and had some reprieve and we were hoping to send her home at lunch time, however, she went on to continue to have severe nausea and we ended up starting some steroids and then after lunch, she had increase in her emesis and retching from about [address] until about 7 o'clock at night at which time, we added an additional Phenergan, IV Protonix and this gave her a small amount of relief, but she was still having difficulties and rectal Compazine was also added for the patient. After all these treatments, she was able to get some rest during the night. We also did a single abdominal film x- ray which ruled out obstructive pathology because the patient was reporting some constipation, lack of stool, abdominal bloating and discomfort and so that was reassuring. Through the night, she was able to get some rest, but then around 4 o'clock this morning she started having increased emesis and chest discomfort again. Last night, I had also placed a call to CIRCULATION CLERK in [place] to ask for any additional recommendations and essentially they agreed that the course that we were taking was appropriate and there was nothing really new to offer. OBJECTIVE: Vital Signs: Temperature 98, blood pressure 117/48, respiratory rate of 20, and O2 saturations 100% on room air. Heart: Regular without obvious murmur. Lungs: Clear to auscultation bilaterally. Abdomen: Soft and nontender and she has hypoactive bowel sounds and does appear mildly distended. Extremities: No edema, erythema or tenderness noted. heart tones will be verified with bedside ultrasound and doppler later this morning. At the time of rounds, the patient was sitting up retching and I did want to lay her back in order to check heart tones right away. LABORATORY DATA: WBC 10.6, hemoglobin down to 10.7 assuming much of this is hemodilution effect, hematocrit 30.7, and platelets 211. Sodium is 134, potassium 3.1, carbon dioxide 17, BUN 5, creatinine 0.4, glucose 116, calcium 7.4, phosphorus 2.2, magnesium 1.6, alkaline phosphatase 36, total protein 5.6, albumin 3.0. Otherwise, comprehensive metabolic profile was within normal limits. ASSESSMENT: 1. Hyperemesis gravidarum. 2. Dehydration. 3. Hypokalemia, hypocalcemia, hypophosphatemia, hypomagnesemia, anemia of . 4. Dehydration. 5. Type 1 diabetes. 6. Gastroparesis. 7. Peripheral neuropathy. PLAN: The patient will continue on many of her medications at this time. I have adjusted orders so that she can continue with that, this could also suppository is Tums as needed. Switch her IV fluids to D5 with 40 of potassium and we will run that 200 at an hour and adjust as needed to maintain urine output of at least 100 mL an hour and bolus with additional normal saline or lactated Ringer's as necessary. Continue Pepcid 20 mg IV twice daily. Start a 2 g dose of magnesium sulfate replacement and recheck labs in about 4 hours. Continue the methylprednisolone 16 mg every 8 hours. Continue Reglan 10 mg t.i.d., Protonix once daily and Compazine suppositories every 12 hours as needed. Continue thiamine once daily. We will also look at adding in IV multivitamin for replacement once we have addressed the potassium and magnesium sulfate, so that we have IV access with which to run a multivitamin. The patient's questions have been answered and she understands the plan of progress. We do have a visiting CIRCULATION CLERK here today and I anticipate running the case by him as well to see if there is anything additional that he can offer hoping to prevent need for parental nutrition for this patient. [facility] /[id number]
[2019-03-09] MEDS: Prochlorperazine 25 MG Supp RECTAL PRN (10:51)
[2019-03-09 13:24] LABS: ANION GAP 10.9; CHLORIDE,CL 107 mmol/L (101-111); SODIUM,NA 131 mmol/L (135-145)
[2019-03-09] MEDS ORDERED: Calcium Gluconate 10% 1 GM/10 ML SDV IV ONE (14:26)
[2019-03-09] MEDS ORDERED: D5 1/2 NS w/ 20 mEq/L KCl 1,000 ML IV SCH (14:30)
[2019-03-09] MEDS ORDERED: Calcium Gluconate 2 GM in Sodium Chloride 0.9% 100 ML IV SCH (15:00)
[2019-03-09] MEDS: Dextrose 5%-0.9% NaCl with KCl 1,000 ML IV SCH ×2 (16:23→21:40)
[2019-03-09] MEDS: MVI, Adult with Vitamin K 10 ML SDV IV SCH (16:23)
[2019-03-09] MEDS ORDERED: Promethazine 25 MG/ML SDV IM ONE (17:31)
[2019-03-09] MEDS: Phosphorus #1 250 MG Tab PO SCH ×2 (20:13→21:59)
[2019-03-10] MEDS: Dextrose 5%-0.9% NaCl with KCl 1,000 ML IV SCH (02:28)
[2019-03-10] MEDS: Calcium Carbonate 500 MG Tab.Chew PO PRN (02:36)
[2019-03-10] MEDS: methylPREDNISolone Sodium Succinate 40 MG/1 ML SDV IV SCH ×2 (05:27→14:37)
[2019-03-10 06:51] LABS: ANION GAP 10.5; CHLORIDE,CL 107 mmol/L (101-111); SODIUM,NA 133 mmol/L (135-145)
[2019-03-10] MEDS ORDERED: Dextrose 5%-0.9% NaCl with KCl 1,000 ML IV SCH (07:45)
[2019-03-10] MEDS ORDERED: Calcium Gluconate 2 GM in Sodium Chloride 0.9% 100 ML IV ONE (08:00)
--- NOTE | 2019-03-10 08:07 | PN ---
DATE: 03/10/2019 SUBJECTIVE: The patient is feeling significantly better than she has over the past couple of days. She has been able to up and ambulate to the bathroom with good urine output and with minimal to no increase in her nausea with activity. She has been able to roll over in bed independently at this point, and vomiting and retching has decreased overnight. She does feel like the Phenergan maybe what works best for the nausea, but seems to be improving in general with the Compazine and Reglan as well. She has been tolerating the steroid doses and the various changes in IV fluids and electrolyte fluids. Reports passing some flatus, no bowel movement at this time. Not feeling any movement. No further vaginal bleeding or discharge. The emesis has been more bile and saliva colored again, and the bloody emesis has stopped. OBJECTIVE: Vital Signs: Temperature 97.9, pulse 77, blood pressure 116/59, respiratory rate of 20, and O2 saturations 100% on room air. HEENT: Unremarkable. Heart: Regular without murmur. Lungs: Clear to auscultation bilaterally. Abdomen: Soft and nontender. Less distended than the day before. Bowel sounds remain hypoactive. Bedside ultrasound was brought and verified, good heart rate at 155 and excellent movement. This did help her mood tremendously. Extremities: No edema, erythema, or tenderness noted. LABORATORY DATA: Labs for this morning: Sodium 133, potassium 3.5, carbon dioxide 19, glucose 200, calcium 8.2, phosphorus 1.3, magnesium 1.8. Otherwise, BMP is appropriate for . ASSESSMENT: 1. Hyperemesis gravidarum. 2. Type 1 diabetes with less than ideal control. 3. 11-week 2-day intrauterine gestation. 4. Gastroparesis. 5. Peripheral neuropathy of diabetes. 6. Dehydration, corrected and the patient now with good urine output. 7. Hypokalemia, hypocalcemia, hypophosphatemia. Hypomagnesemia, corrected, but borderline at this time. 8. Anemia of . PLAN: We will gradually continue to take away any medications that we can and sort out exactly what is helping her symptoms in regard to the heartburn as well as the nausea and vomiting. Hope for discharge tomorrow if she is able to tolerate p.o.'s today and we can have her on oral medications. She has verbalized agreement with this, and we will continue to make adjustments as appropriate. [facility] /[id number] KAMILAH
[2019-03-10] MEDS: Famotidine 20 MG/2 ML SDV IVPUSH SCH (08:54)
[2019-03-10] MEDS: Metoclopramide 10 MG/2 ML SDV IVPUSH SCH ×2 (08:55→14:39)
[2019-03-10] MEDS ORDERED: Potassium Chloride 20 MEQ in Premix Bag 1 BAG IV ONE ×2 (09:00→18:00)
[2019-03-10] MEDS: Thiamine 200 MG/2 ML MDV IM SCH (10:37)
[2019-03-10] MEDS: Phosphorus #1 250 MG Tab PO SCH ×4 (10:40→21:44)
[2019-03-10] MEDS: MVI, Adult with Vitamin K 10 ML SDV IV SCH (12:27)
[2019-03-10] MEDS: Potassium Chloride 10 MEQ Tab.ER PO SCH (17:19)
[2019-03-10] MEDS: Prenatal Multivitamin with Calcium/Folic Acid/Iron Tab PO SCH (17:19)
[2019-03-10] MEDS: Metoclopramide 10 MG Tab PO SCH (17:19)
[2019-03-10 20:30] VITALS: BP 108/63
[2019-03-10] MEDS: Famotidine 20 MG Tab PO SCH (21:46)
[2019-03-11 06:32] LABS: ANION GAP 12.2; CHLORIDE,CL 105 mmol/L (101-111); SODIUM,NA 134 mmol/L (135-145)
[2019-03-11] MEDS: Prenatal Multivitamin with Calcium/Folic Acid/Iron Tab PO SCH (09:31)
[2019-03-11] MEDS: Phosphorus #1 250 MG Tab PO SCH ×2 (09:32→12:27)
[2019-03-11] MEDS: Potassium Chloride 10 MEQ Tab.ER PO SCH ×2 (09:32→12:27)
[2019-03-11] MEDS: Famotidine 20 MG Tab PO SCH (09:32)
[2019-03-11] MEDS: Metoclopramide 10 MG Tab PO SCH ×2 (09:32→12:27)
--- NOTE | 2019-03-11 11:32 | DISCH ---
ADMITTING DIAGNOSES: 1. Hyperemesis gravidarum. 2. High-risk in the first trimester, 11-week 1-day gestation. 3. Type 1 diabetes. 4. Gastroparesis. 5. Dehydration. 6. Hematemesis. DISCHARGE DIAGNOSES: 1. Hyperemesis gravidarum. 2. High-risk in the first trimester, 11-week 1-day gestation. 3. Type 1 diabetes. 4. Gastroparesis. 5. Dehydration, resolved. 6. Hematemesis, resolved. 7. Hypokalemia. 8. Hypophosphatemia, corrected. 9. Hypocalcemia. 10.Hyponatremia. 11.Hypomagnesemia, corrected. 12.Anemia of . BRIEF HISTORY: A 33-year-old female admitted to the hospital at 11-week 1-day gestation after presenting to the ER for persistent hematemesis despite attempted outpatient treatment for hyperemesis gravidarum. See admission history and physical for full details. HOSPITAL COURSE: Overall good. Initially, we were having lot of difficulties with the patient having persistent dry heaves and retching. Hematemesis was intermittent along with just routine bile emesis. On the second day of her hospital stay, potassium was down at 3.1, calcium of 7.4, phosphorus of 2.2, and magnesium of 1.6. During the remainder of her hospital stay, we had managed numerous medication changes and IV fluid changes using dextrose with varying amounts of half or normal saline and 20 to 40 mEq of KCl per bag. She was given IV Protonix, IV Pepcid, IV magnesium, calcium, and potassium, oral phosphorus. She was given Reglan, Phenergan, Compazine, and Zofran for antiemetic. She was also given a Bisacodyl suppository because of insufficient stool output as well as IV steroids. Over the course of her days here, she did gradually show improvement. On the night prior to discharge, second IV had infiltrated, and the patient requested it not be replaced because she was tolerating p.o. better, so for that evening into the next morning, we administered all of her medications orally along with verifying that she was now tolerating approximately 75% of a regular diet as long as she was avoiding certain foods. On morning of discharge, she was feeling well with only mild nausea, able to get up and ambulate without further difficulties, continuing to pass flatus but not really having much in the way of bowel movements. She was able to tolerate all of her oral medications and in general was feeling a lot better. DISCHARGE CONDITION: Good. PHYSICAL EXAMINATION: Vital Signs: Temperature is 98.6, pulse 77, blood pressure 108/63, respiratory rate of 20, and O2 saturations 100% on room air. Heart: Regular without murmur. Lungs: Clear to auscultation bilaterally. Abdomen: Soft and nontender. Bowel sounds are hypoactive, but present. Extremities: No edema, erythema, or tenderness noted. FINAL LABOROATRY DATA: Sodium of 134, potassium of 3.2, carbon dioxide improved at 20, glucose 115, calcium 8.3, phosphorus 3.8, and magnesium 1.8. DISPOSITION: Home with family. DISCHARGE MEDICATIONS: Pepcid 20 mg p.o. b.i.d., Reglan 10 mg p.o. t.i.d., KCl 10 mEq p.o. q.i.d., Compazine 25 mg per rectum twice daily as needed. She will resume her levothyroxine 50 mcg daily and her vitamin gummies once daily. We will also be encouraging her to get started on some p.o. iron. We will give her few more days for her stomach to settle. FOLLOWUP: She has an appointment with Maternal Medicine tomorrow, and she was encouraged to keep that appointment. Otherwise, I will see her back for her next routine OB visit and we will also continue to be co-managing this high-risk with Dr. Torres. INSTRUCTIONS: Routine hyperemesis instructions were given to the patient. We will continue to monitor what she eats and how she eats. In the future, she will get a hold of me sooner rather than later if she has recurrent vomiting problems. Her questions have been answered. [facility] /[id number]
== END 2019-03-11 12:30 | disposition home or self-care (01) ==
LOC: DL.ED 22:56 → DL.MS 03-08 00:10 → UNDOADMOB 03-08 00:15
PROVIDERS: ADMIT Family Medicine; ATTEND Family Medicine
DX: O21.1 Hyperemesis gravidarum with metabolic disturbance (principal); O09.91 Supervision of high risk pregnancy, unspecified, first trimester; O24.419 Gestational diabetes mellitus in pregnancy, unspecified control; O99.011 Anemia complicating pregnancy, first trimester; Z3A.11 11 weeks gestation of pregnancy; K31.84 Gastroparesis; K92.0 Hematemesis; E83.39 Other disorders of phosphorus metabolism; E83.51 Hypocalcemia; E83.42 Hypomagnesemia; K21.9 Gastro-esophageal reflux disease without esophagitis; E03.9 Hypothyroidism, unspecified; G43.909 Migraine, unspecified, not intractable, without status migrainosus; Z91.040 Latex allergy status; Z79.4 Long term (current) use of insulin; Z79.899 Other long term (current) drug therapy
CPT/HCPCS: 36415; 74018; 80048; 80053; 82009; 82150; 82962; 83605; 83690; 83735; 84100; 85025; 85027; 96361; 96374; 96375; 99284; A4217; A9270; C9113; J0610; J2405; J2550; J2765; J2920; J3411; J3475; J3480; J3490; J7030; J7050; 96365; 96372; 96376; G0378

== ENCOUNTER 2020-03-12 05:33 | Day surgery (SDC) | payer OTHER ==
[~2020-03-12 05:33] MED LIST changes: -Dextrose 5%-0.45% NaCl 1,000 ML IV SCH; -Midazolam 1 MG/ML 2 ML SDV IV ONE; -Midazolam 1 MG/ML 2 ML SDV ONE; +Sodium Chloride 0.9% 1,000 ML IV SCH; -Sodium Chloride 0.9% 10 ML Syringe FLUSH PRN; -fentaNYL 100 MCG/2 ML SDV IV ONE; -fentaNYL 100 MCG/2 ML SDV ONE
[2020-03-12] MEDS ORDERED: Midazolam 1 MG/ML 2 ML SDV IV ONE ×7 (05:34→06:40)
[2020-03-12] MEDS ORDERED: fentaNYL 100 MCG/2 ML SDV IV ONE ×5 (05:34→06:48)
[2020-03-12] MEDS ORDERED: Sodium Chloride 0.9% 10 ML Syringe FLUSH PRN (06:00)
[2020-03-12] MEDS ORDERED: Dextrose 5%-0.45% NaCl 1,000 ML IV SCH (06:00)
[2020-03-12] MEDS ORDERED: fentaNYL 100 MCG/2 ML SDV ONE (06:15)
[2020-03-12] MEDS ORDERED: Midazolam 1 MG/ML 2 ML SDV ONE (06:15)
--- NOTE | 2020-03-12 08:20 | OR ---
DATE: 03/12/2020 PROCEDURE: Total colonoscopy and multiple pinch biopsies. INSTRUMENT USED: PCF-H190DL Olympus video colonoscope. PREMEDICATIONS: Fentanyl 150 mcg intravenous, Versed 4 mg intravenous. Nasal O2 cannula. The procedure was done under pulse oximetry, BP recording, and table games manager. INDICATION: The patient type 1 diabetic, with chronic diarrhea, unexplained and not responsive to medical measures. Colonoscopic examination is done for detection of any polypoid lesions and removal, biopsies to be obtained for microscopic colitis, endoscopic hemostasis therapy if needed. DESCRIPTION OF PROCEDURE: Initial rectal exam was unremarkable. Rigid anoscopy was normal. The colonoscope was passed with ease up to the ileocecal area. Photographs were taken of the normal-appearing cecum, identified by appendiceal orifice and thin-lipped ileocecal folds. Terminal ileum could not be intubated due to thin-lipped ileocecal junction preventing further advancement. No bleeding was noted from any of the visualized areas at the commencement of the examination. There was quite a bit of liquid and semi-liquid fecal material that had to be aspirated. Bowel preparation by [place] scale was 2 in all the regions, total score 6. No stricture. No vascular ectasia. No large isolated ulcerations seen. No evidence of diffuse inflammatory bowel disease in the form of friability, contact bleeding, or ulcerations. No polyp or tumor mass identified. Probing the proximal sides of folds and flexures using adequate distention and clearing up the stool material, withdrawal of the scope was made. Multiple pinch biopsies were taken from the normal-appearing mucosa of the mid transverse colon, mid descending colon, and rectosigmoid, and sent for any histopathologic evidence of microscopic colitis. No bleeding was noted from any of the visualized areas at the completion of the examination. IMPRESSION: Normal study. The patient tolerated the procedure well. [facility] /[id number]
[2020-03-12 09:06] VITALS: BP 91/62; PULSE 77
== END 2020-03-12 09:10 | disposition home or self-care (01) ==
LOC: DL.ENDO 05:33
PROVIDERS: ATTEND Internal Medicine Gastroenterology
DX: K52.9 Noninfective gastroenteritis and colitis, unspecified (principal); E66.9 Obesity, unspecified; E10.9 Type 1 diabetes mellitus without complications; E03.9 Hypothyroidism, unspecified; E06.3 Autoimmune thyroiditis; K21.9 Gastro-esophageal reflux disease without esophagitis; Z68.33 Body mass index [BMI] 33.0-33.9, adult
CPT/HCPCS: J2250; J3010; J7042

== ENCOUNTER 2020-10-03 06:31 | Day surgery (SDC) | payer OTHER ==
[~2020-10-03 06:31] MED LIST changes: +Dextrose 5%-0.45% NaCl 1,000 ML IV SCH; +Midazolam 1 MG/ML 2 ML SDV ONE; -Sodium Chloride 0.9% 1,000 ML IV SCH; +Sodium Chloride 0.9% 10 ML Syringe FLUSH PRN; +fentaNYL 100 MCG/2 ML SDV ONE
[2020-10-03] MEDS ORDERED: Midazolam 1 MG/ML 2 ML SDV IV ONE ×3 (06:32→07:59)
[2020-10-03] MEDS ORDERED: fentaNYL 100 MCG/2 ML SDV IV ONE ×3 (06:32→07:58)
[2020-10-03] MEDS ORDERED: Sodium Chloride 0.9% 1,000 ML IV SCH (07:10)
[2020-10-03 12:06] VITALS: BP 127/86; PULSE 75
--- NOTE | 2020-10-03 12:23 | OR ---
DATE: 10/03/2020 PROCEDURE: Esophagogastroduodenoscopy. INSTRUMENT USED: GIF-HQ190 Olympus video panendoscope. PREMEDICATIONS: No oral or topical anesthesia used. Fentanyl 100 mcg intravenous, Versed 2 mg intravenous. The procedure was done under pulse oximetry, BP recording, and playground monitor. INDICATION: The patient with persistent dyspepsia as well as heartburn and regurgitation unexplained and not responsive to medical measures, on PPI. Had previous inadequate study due to the presence of large amount of food in the stomach. Esophagogastroduodenoscopy is performed for detection of any active erosive lesions, Gerber esophagus and/or malignancy also under consideration. PROCEDURE IN DETAIL: The scope was passed with ease. Adequate visualization of the esophagus was made from proximal to distal areas. No upper esophageal lesions identified. No distal esophageal stricture. No uphill or downhill esophageal varices. No Karissa-Patel tear. No evidence of erosive esophagitis by [place] criteria. No esophageal polyp or tumor mass identified. Z-line was seen at around 39 cm distal to the oral verge, configuration consistent with grade 1 by ZAP classification. No esophageal polyp or tumor mass identified. No proximal gastric varices noted. Gastric fundus examination by retroflexion showed no polypoid lesions. No gastric ulcer, malignant mass, or vascular ectasia identified. There was some pylorospasm. Duodenal bulb showed no ulcer. Visualized second part of the duodenum was unremarkable. No bleeding was noted from any of the visualized areas at the completion of examination. Photographs were taken of the duodenal bulb, gastric antrum, fundus, and distal esophagus. IMPRESSION: Normal study. The patient tolerated the procedure well. [facility] /[id number]
== END 2020-10-03 12:25 | disposition home or self-care (01) ==
LOC: DL.ENDO 06:31
PROVIDERS: ATTEND Internal Medicine Gastroenterology
DX: R10.13 Epigastric pain (principal); E66.09 Other obesity due to excess calories; E03.9 Hypothyroidism, unspecified; K21.9 Gastro-esophageal reflux disease without esophagitis; E11.43 Type 2 diabetes mellitus with diabetic autonomic (poly)neuropathy; K31.84 Gastroparesis; Z68.32 Body mass index [BMI] 32.0-32.9, adult
CPT/HCPCS: 43235; J2250; J3010; J7030